=== PATIENT | female | born 1940 | race Caucasian/White ===

== ENCOUNTER 2016-10-30 08:00 | Emergency (ER) | payer MEDICARE ==
[~2016-10-30] VITALS: Ht 160 cm; Wt 54.4 kg
[~2016-10-30 08:00] MED LIST: AMLO5TAB2 PO; BISA10SU55 RC; DOCU-27 PO; ESOM40CA PO; GABA-586 PO; GABA600T2 PO; HYDR-2666 PO; HYDR25TA9 PO; LISI-334 PO; MAGN400O4 PO; MELO7.5T5 PO; POLY15DR28 EACHEYE; PRAV80TA2 PO; SUCR1ORA2 PO; ZOLP5TAB PO
[2016-10-30 08:45] LABS: BASO % 0 % (0-3); EOS % 0 % (0-3); HEMATOCRIT 31.9 % (36.0-47.0); HEMOGLOBIN 10.1 g/dL (12.0-15.5); LYMPH # 0.8 x10^3/uL (1.0-4.8); LYMPH % 7 % (24-48); MEAN CORPUSCULAR HEMOGLOBIN 25 pg (25-35); MEAN CORPUSCULAR HGB CONC 32 g/dL (31-37); MEAN CORPUSCULAR VOLUME 79 fL (79-100); MONO # 0.5 x10^3/uL (0.0-1.1); MONO % 4 % (0-9); NEUT # 9.7 x10^3uL (1.8-7.7); NEUT % 88 % (31-73); PLATELET COUNT 528 x10^3/uL (140-400); RED BLOOD COUNT 4.03 x10^6/uL (3.50-5.40); RED CELL DISTRIBUTION WIDTH 14.2 % (11.5-14.5)
[2016-10-30] MEDS ORDERED: IV NORMAL SALINE 1,000ML 1,000 ML IV ONE (08:45)
[2016-10-30] MEDS ORDERED: ONDANSETRON PF 4 MG/2 ML VIAL. IV ONE (08:45)
[2016-10-30 08:57] LABS: CREATININE 0.7 mg/dL (0.6-1.0); GFR 81.4; POTASSIUM 4.4 mmol/L (3.5-5.1)
--- NOTE | 2016-10-30 09:10 | RAD ---
Portable AP view CXR: Clinical indications: Chest pain with weakness for 2 days. Comparison: September 13, 2015. Findings: No acute lung infiltrate or pleural effusion or pulmonary edema or lung mass or pneumothorax is seen. The heart size, pulmonary vasculature, mediastinum and both kameron are unremarkable. Impression: No acute radiographic abnormality is seen.
--- NOTE | 2016-10-30 09:28 | ED.ADGEN ---
Past History Past Medical History: Constipation, CVA, Gallstones, GERD, High Cholesterol, Hypertension, Other Past Surgical History: Appendectomy, Cholecystectomy, Hysterectomy, Knee Replacement, Tonsillectomy Smoking: Non-smoker Alcohol Use: Occasionally Drug Use: None Adult General HPI HPI Patient is a 75-year-old female presents emergency department complaining of nausea and vomiting for the last 1 week. She states she has been unable to keep anything down. Consequently she reports that she feels "unwell" but denies any janet pain. Denies any diarrhea. Review of Systems Review of Systems Constitutional: Denies fever or chills [] Eyes: Denies change in visual acuity, redness, or eye pain [] HENT: Denies nasal congestion or sore throat [] Respiratory: Denies cough or shortness of breath [] Cardiovascular: No additional information not addressed in HPI [] GI: Denies abdominal pain, nausea, vomiting, bloody stools or diarrhea [] : Denies dysuria or hematuria [] Musculoskeletal: Denies back pain or joint pain [] Integument: Denies rash or skin lesions [] Neurologic: Denies headache, focal weakness or sensory changes [] Endocrine: Denies polyuria or polydipsia [] Current Medications Current Medications Current Medications Medications (Trade) Dose Ordered Sig/Haven Start Time Stop Time Status Last Admin Dose Admin Acetaminophen (Tylenol) 325 mg STK-MED ONCE 10/30/16 11:38 10/30/16 11:39 DC Multi-Ingredient Mouthwash/Gargle (Gi Cocktail) 20 ml 1X ONCE 10/30/16 09:45 10/30/16 09:45 DC Ondansetron HCl (Zofran) 4 mg 1X ONCE 10/30/16 08:45 10/30/16 08:46 DC 10/30/16 09:30 4 MG Sodium Chloride (Iv Sodium Chloride 0.9% 1,000ml) 1,000 ml @ 1,000 mls/hr 1X ONCE 10/30/16 08:45 10/30/16 09:44 DC 10/30/16 08:45 1,000 MLS/HR Allergies Allergies Allergies Coded Allergies Type Severity Reaction Last Updated Verified codeine Allergy Intermediate 09/14/15 Yes gluten Allergy Intermediate 09/14/15 No Physical Exam Physical Exam Constitutional: Well developed, well nourished, no acute distress, non-toxic appearance. [] HENT: Normocephalic, atraumatic, bilateral external ears normal, oropharynx moist, no oral exudates, nose normal. [] Eyes: PERRLA, EOMI, conjunctiva normal, no discharge. [] Neck: Normal range of motion, no tenderness, supple, no stridor. [] Cardiovascular:Heart rate regular rhythm, no murmur [] Lungs & Thorax: Bilateral breath sounds clear to auscultation [] Abdomen: Bowel sounds normal, soft, no tenderness, no masses, no pulsatile masses. [] Skin: Warm, dry, no erythema, no rash. [] Back: No tenderness, no CVA tenderness. [] Extremities: No tenderness, no cyanosis, no clubbing, ROM intact, no edema. [] Neurologic: Alert and oriented X 3, normal motor function, normal sensory function, no focal deficits noted. [] Psychologic: Affect normal, judgement normal, mood normal. [] Current Patient Data Vital Signs Vital Signs Date Time Temp Pulse Resp B/P Pulse Ox O2 Delivery O2 Flow Rate FiO2 10/30/16 10:15 80 20 132/72 96 Room Air 10/30/16 08:00 98.7 Lab Results Laboratory Tests Test 10/30/16 08:30 10/30/16 10:00 White Blood Count 11.0x10^3/uL (4.0-11.0) Red Blood Count 4.03x10^6/uL (3.50-5.40) Hemoglobin 10.1g/dL (12.0-15.5) L Hematocrit 31.9% (36.0-47.0) L Mean Corpuscular Volume 79fL (79-100) Mean Corpuscular Hemoglobin 25pg (25-35) Mean Corpuscular Hemoglobin Concent 32g/dL (31-37) Red Cell Distribution Width 14.2% (11.5-14.5) Platelet Count 528x10^3/uL (140-400) H Neutrophils (%) (Auto) 88% (31-73) H Lymphocytes (%) (Auto) 7% (24-48) L Monocytes (%) (Auto) 4% (0-9) Eosinophils (%) (Auto) 0% (0-3) Basophils (%) (Auto) 0% (0-3) Neutrophils # (Auto) 9.7x10^3uL (1.8-7.7) H Lymphocytes # (Auto) 0.8x10^3/uL (1.0-4.8) L Monocytes # (Auto) 0.5x10^3/uL (0.0-1.1) Eosinophils # (Auto) 0.0x10^3/uL (0.0-0.7) Basophils # (Auto) 0.0x10^3/uL (0.0-0.2) Sodium Level 137mmol/L (136-145) Potassium Level 4.4mmol/L (3.5-5.1) Chloride Level 105mmol/L (98-107) Carbon Dioxide Level 24mmol/L (21-32) Anion Gap 8 (6-14) Blood Urea Nitrogen 21mg/dL (7-20) H Creatinine 0.7mg/dL (0.6-1.0) Estimated GFR (Cockcroft-Gault) 81.4 Glucose Level 82mg/dL (70-99) Calcium Level 9.0mg/dL (8.5-10.1) Aspartate Amino Transferase (AST) 32U/L (15-37) Alanine Aminotransferase (ALT) 43U/L (14-59) Alkaline Phosphatase 393U/L (46-116) H Troponin I Quantitative < 0.017ng/mL (0-0.055) Lipase 36U/L (73-393) L Urine Collection Type U cath Urine Color Yellow Urine Clarity Clear Urine pH 5.0 Urine Specific [place] 1.020 Urine Protein Neg (NEG-TRACE) Urine Glucose (UA) Negmg/dL (NEG) Urine Ketones (Stick) 40mg/dL (NEG) Urine Blood Neg (NEG) Urine Nitrite Neg (NEG) Urine Bilirubin Neg (NEG) Urine Urobilinogen Dipstick 0.2mg/dL (0.2 mg/dL) Urine Leukocyte Esterase Neg (NEG) Urine RBC 0/HPF (0-2) Urine WBC Occ/HPF (0-4) Urine Squamous Epithelial Cells None/LPF Urine Bacteria 0/HPF (0-FEW) Urine Hyaline Casts Occ/HPF Urine Mucus Slight/LPF EKG EKG EKG interpreted by me normal sinus rhythm, 70 bpm, left axis deviation, no ST segment elevation. [] Radiology/Procedures Radiology/Procedures Portable AP view CXR: Clinical indications: Chest pain with weakness for 2 days. Comparison: September 13, 2015. Findings: No acute lung infiltrate or pleural effusion or pulmonary edema or lung mass or pneumothorax is seen. The heart size, pulmonary vasculature, mediastinum and both kameron are unremarkable. Impression: No acute radiographic abnormality is seen. DICTATED AND SIGNED BY: ADIEL RIVAS MD DATE: 10/30/16 0907 CC: KENYA EDWARDS MD; ESTEFANI SUAREZ MD ~[] Course & Med Decision Making Course & Med Decision Making Pertinent Labs and Imaging studies reviewed. (See chart for details) 1030 - Patient's work up is reassuring. She is feeling significantly improved. Patient and family would like her to be discharged home. We will attempt po challenge first. 1115 - Patient has done well with her PO challenge. Requesting discharge. Will d /c with rx for zofran, follow up, and supportive care instructions. [] Final Impression Final Impression nausea and vomiting[] Problems: Dragon Disclaimer Dragon Disclaimer This electronic medical record was generated, in whole or in part, using a voice recognition dictation system. KENYA EDWARDS MD Oct 30, 2016 09:27
[2016-10-30] MEDS ORDERED: LIDO:MAALOX 1:1 20 ML SINGLE DOSE PO ONE (09:45)
[2016-10-30 10:15] VITALS: BP 132/72
[2016-10-30 10:19] LABS: BILIRUBIN,URINE NEG (NEG); CLARITY,URINE CLEAR; COLOR,URINE YELLOW; GLUCOSE,URINE NEG (NEG)
[2016-10-30 10:20] LABS: BACTERIA,URINE 0 /HPF (0-FEW); HYALINE CASTS, URINE OCC /HPF; NITRITE,URINE NEG (NEG); RBC,URINE 0 /HPF (0-2); UROBILINOGEN,URINE 0.2 mg/dL (0.2 mg/dL); WBC,URINE OCC /HPF (0-4)
[2016-10-30] MEDS ORDERED: ONDA4TAB10 PO (11:19)
[2016-10-30] MEDS ORDERED: ACETAMINOPHEN 325 MG TABLET PO ONE ×2 (11:38→11:45)
--- NOTE | 2016-10-30 18:32 | EKG ---
[address] [address] Test Date: 2016-10-30 Test Time: 08:20:38 Pat Name: ABDULLAHI WELLER Department: Room: Gender: F [employer]: PADMA : 1940 Requested By: KENYA EDWARDS Order Number: [id number] Reading MD: Measurements Intervals [place] Rate: 78 P: 59 WI: 194 QRS: -42 QRSD: 120 T: 36 QT: 408 QTc: 469 Interpretive Statements SINUS RHYTHM ABNORMAL LEFT AXIS DEVIATION R-S TRANSITION ZONE IN V LEADS DISPLACED TO THE RIGHT LEFT ANTERIOR FASCICULAR BLOCK ABNORMAL ECG RI6.01 Unconfirmed report No previous ECG available for comparison
--- NOTE | 2016-11-01 11:55 | EKG ---
[address] [address] Test Date: 2016-10-30 Test Time: 08:19:07 Pat Name: ABDULLAHI WELLER Department: Room: Gender: F [employer]: PADMA : 1940 Requested By: KENYA EDWARDS Order Number: [id number] Reading MD: Measurements Intervals [place] Rate: 73 P: 52 ME: 194 QRS: -37 QRSD: 78 T: 26 QT: 414 QTc: 460 Interpretive Statements SINUS RHYTHM ABNORMAL LEFT AXIS DEVIATION R-S TRANSITION ZONE IN V LEADS DISPLACED TO THE RIGHT LEFT ANTERIOR FASCICULAR BLOCK ABNORMAL ECG RI6.01 Unconfirmed report No previous ECG available for comparison
== END 2016-10-30 11:35 | disposition home or self-care (01) ==
LOC: ER 08:00
DX: R11.2 Nausea with vomiting, unspecified (principal); K21.9 Gastro-esophageal reflux disease without esophagitis; E78.00 Pure hypercholesterolemia, unspecified; I10 Essential (primary) hypertension; Z86.73 Personal history of transient ischemic attack (TIA), and cerebral infarction without residual deficits; Z88.5 Allergy status to narcotic agent; Z88.8 Allergy status to other drugs, medicaments and biological substances
CPT/HCPCS: 36415; 51701; 71010; 80048; 81001; 83690; 84075; 84450; 84460; 84484; 85027; 93005; 96361; 96374; 99285; J2405; J7030

== ENCOUNTER → 2016-11-03 | Outpatient (CLI) | payer MEDICARE ==
[2016-10-30 10:15] VITALS: BP 132/72
[~2016-11-03] MED LIST changes: +ONDA4TAB10 PO
--- NOTE | 2016-11-03 13:54 | RAD ---
Ultrasound of the abdomen 11/03/2016 Clinical history: Abdominal pain with nausea and vomiting and elevated liver function tests. Technique: Real-time ultrasound examination of the abdomen was performed. Multiple images were obtained. Findings: Comparison is made to CT scanning of the abdomen dated 10/07/2008. The gallbladder is not visualized consistent with a cholecystectomy. The common bile duct is mildly dilated measuring 9 mm in diameter. Mild intrahepatic biliary ductal dilatation is seen. The liver is normal in size measuring 16.1 cm in length. No focal abnormality of the liver is noted. The spleen is normal in size measuring 9.2 cm in length. Increased echogenicity of the pancreas is seen consistent with fatty infiltration of the pancreas. No focal abnormality of the pancreas is seen. Both kidneys are within normal limits in size and echogenicity. Atherosclerotic plaque formation is seen involving the abdominal aorta. The abdominal aorta tapers normally. The inferior vena cava is within normal limits. No free fluid is seen. Impression: 1. Post Cholecystectomy. 2. Mild intra and extrahepatic biliary ductal dilatation.
== END | disposition home or self-care (01) ==
LOC: US 09:49
PROVIDERS: ATTEND Nurse Practitioner Family
DX: R10.9 Unspecified abdominal pain (principal); R79.89 Other specified abnormal findings of blood chemistry
CPT/HCPCS: 76700

== ENCOUNTER 2017-03-08 00:13 | Inpatient (IN) | payer MEDICARE ==
[~2017-03-08] VITALS: Ht 160 cm; Wt 63.6 kg
[~2017-03-08 00:13] MED LIST changes: +DOCU-109 PO; -DOCU-27 PO; -HYDR-2666 PO; +HYDR-2758 PO; -MAGN400O4 PO; +MAGN400O7 PO; -SUCR1ORA2 PO; +SUCR1ORA5 PO
[2017-03-08] MEDS: fentaNYL PF 100 MCG/2 ML VIAL IV PRN ×5 (00:55→12:46)
--- NOTE | 2017-03-08 01:33 | ED.ADGEN ---
Past History Past Medical History: Constipation, CVA, Gallstones, GERD, High Cholesterol, Hip Fracture, Hypertension, Stroke, Other Past Surgical History: Appendectomy, Cholecystectomy, Hysterectomy, Knee Replacement, Tonsillectomy Smoking: Non-smoker Alcohol Use: Occasionally Drug Use: None Adult General [facility] HPI Patient is a [76 woman, history of CVA with residual right-sided deficits including weakness in the foot and upper extremity, memory issues, hypertension , hyperlipidemia, GERD, arthritis, who presents emergency department via EMS with a complaint of right ankle pain. Per patient's report, she ambulates with assistance and with a gait belt at home, she states that she was attempting to step up into her kitchen with assistance, when she may have "rolled" her ankle, and began expressing significant pain in the ankle. She states she could walk no further, was lowered into her chair by her family. She states that this occurred around 5:30 in the evening. She states that she then attempted to get up and ambulated again several hours later and noted continued extreme pain which she describes as sharp and shooting on the "inside", about an 8 out of 10 in the ankle, at that time EMS was contacted. Patient denies any pain prior to this incident, states that she has the same amount of chronic swelling in the lower extremities, she denies any chest pain, shortness breath, fevers, chills, nausea, vomiting, increasing weakness, any numbness, tingling or other changes. Patient's is en route. Review of Systems Review of Systems Constitutional: Denies fever or chills [] Eyes: Denies change in visual acuity, redness, or eye pain [] HENT: Denies nasal congestion or sore throat [] Respiratory: Denies cough or shortness of breath [] Cardiovascular: No additional information not addressed in HPI [] GI: Denies abdominal pain, nausea, vomiting, bloody stools or diarrhea [] : Denies dysuria or hematuria [] Musculoskeletal: Denies back pain, right ankle pain. Integument: Denies rash or skin lesions [] Neurologic: Denies headache, focal weakness or sensory changes [] Endocrine: Denies polyuria or polydipsia [] Current Medications Current Medications Current Medications Medications (Trade) Dose Ordered Sig/Haven Start Time Stop Time Status Last Admin Dose Admin Acetaminophen (Tylenol) 650 mg PRN Q4HRS PRN 03/08/17 02:30 03/09/17 02:29 UNV Docusate Sodium (Colace) 100 mg [id number] 03/08/17 06:00 UNV Fentanyl Citrate (Fentanyl 2ml Vial) 25 mcg PRN Q2HR PRN 03/08/17 02:30 03/09/17 02:29 UNV Allergies Allergies Allergies Coded Allergies Type Severity Reaction Last Updated Verified codeine Allergy Intermediate 09/14/15 Yes gluten Allergy Intermediate 09/14/15 No Physical Exam Physical Exam Constitutional: Well developed, well nourished, no acute distress, non-toxic appearance. [] HENT: Normocephalic, atraumatic, bilateral external ears normal, oropharynx moist, no oral exudates, nose normal. [] Eyes: PERRLA, EOMI, conjunctiva normal, no discharge. [] Neck: Normal range of motion, no tenderness, supple, no stridor. [] Cardiovascular:Heart rate regular rhythm, no murmur , S1, S2, no rubs or gallops. [] Lungs & Thorax: Diminished breath since bases bilaterally, no wheezing, rhonchi , rales. [] Abdomen: Bowel sounds normal, soft, no tenderness, no masses, no pulsatile masses. [] Skin: Warm, dry, no erythema, no rash. [] Back: No tenderness, no CVA tenderness. [] Extremities: Patient with foot drop noted in the right lower extremity, with some muscle wasting and 2+ pitting edema, negative Homans sign, tenderness to palpation and some swelling noted across both malleoli, although patient has most pain with dorsiflexion of foot, which causes her to cry out. No cyanosis, no clubbing. No external injuries, no other concerning findings identified, patient also noted to have contracture of the right upper arm which is chronic, has full range of motion 5 out of 5 strength in the left upper and lower extremity. Neurologic: Alert and oriented X 3, normal motor function, normal sensory function, no focal deficits noted. [] Psychologic: Affect normal, judgement normal, mood normal. [] Current Patient Data Vital Signs Vital Signs Date Time Temp Pulse Resp B/P (MAP) Pulse Ox O2 Delivery O2 Flow Rate FiO2 03/08/17 00:13 63 24 97 Room Air Lab Results Laboratory Tests Test 03/08/17 01:31 White Blood Count 7.2 x10^3/uL (4.0-11.0) Red Blood Count 3.75 x10^6/uL (3.50-5.40) Hemoglobin 9.5 g/dL (12.0-15.5) L Hematocrit 30.6 % (36.0-47.0) L Mean Corpuscular Volume 82 fL (79-100) Mean Corpuscular Hemoglobin 25 pg (25-35) Mean Corpuscular Hemoglobin Concent 31 g/dL (31-37) Red Cell Distribution Width 15.5 % (11.5-14.5) H Platelet Count 165 x10^3/uL (140-400) Neutrophils (%) (Auto) 72 % (31-73) Lymphocytes (%) (Auto) 17 % (24-48) L Monocytes (%) (Auto) 9 % (0-9) Eosinophils (%) (Auto) 2 % (0-3) Basophils (%) (Auto) 1 % (0-3) Neutrophils # (Auto) 5.1 x10^3uL (1.8-7.7) Lymphocytes # (Auto) 1.2 x10^3/uL (1.0-4.8) Monocytes # (Auto) 0.6 x10^3/uL (0.0-1.1) Eosinophils # (Auto) 0.1 x10^3/uL (0.0-0.7) Basophils # (Auto) 0.0 x10^3/uL (0.0-0.2) Sodium Level 143 mmol/L (136-145) Potassium Level 4.8 mmol/L (3.5-5.1) Chloride Level 109 mmol/L (98-107) H Carbon Dioxide Level 26 mmol/L (21-32) Anion Gap 8 (6-14) Blood Urea Nitrogen 19 mg/dL (7-20) Creatinine 0.9 mg/dL (0.6-1.0) Estimated GFR (Cockcroft-Gault) 60.7 BUN/Creatinine Ratio 21 (6-20) H Glucose Level 106 mg/dL (70-99) H Calcium Level 8.4 mg/dL (8.5-10.1) L Total Bilirubin 0.2 mg/dL (0.2-1.0) Aspartate Amino Transferase (AST) 27 U/L (15-37) Alanine Aminotransferase (ALT) 49 U/L (14-59) Alkaline Phosphatase 235 U/L (46-116) H Total Protein 6.3 g/dL (6.4-8.2) L Albumin 3.2 g/dL (3.4-5.0) L Albumin/Globulin Ratio 1.0 (1.0-1.7) EKG EKG ECG: Rhythm strip: Sinus rhythm, heart rate 67 bpm, no ectopy. As interpreted by me. [] Radiology/Procedures Radiology/Procedures [][address] [address] IMAGING REPORT Signed PATIENT: ABDULLAHI WELLER ACCOUNT: [id number] : 1940 LOCATION: ER AGE: 76 SEX: F EXAM STATUS: REG ER ORD. PHYSICIAN: ALEKSANDRA LÓPEZ DO REASON: pain/ possible injury PROCEDURE: ANKLE RIGHT 3V Examination: 3 views of the right ankle HISTORY: History of right ankle pain COMPARISON: None available Findings: The ankle mortise appears intact. Osseous demineralization limits evaluation. There is moderate soft tissue swelling identified surrounding the ankle joint particularly laterally. Small enthesophyte identified at the site of attachment of the Achilles tendon to the calcaneus. IMPRESSION: 1. No obvious acute osseous findings. 2. Moderate soft tissue swelling identified surrounding the ankle joint particularly laterally. Differential includes edema, infection or cellulitis. Electronically signed by: Brody Roberts MD (03/08/2017 1:45 AM) [facility] [id number] DICTATED AND SIGNED BY: BRODY ROBERTS MD DATE: 03/08/17 0142 CC: ALEKSANDRA LÓPEZ DO; ESTEFANI SUAREZ MD ~ Course & Med Decision Making Course & Med Decision Making Pertinent Labs and Imaging studies reviewed. (See chart for details) [] Final Impression Final Impression Patient's now present in the ED, confirms report by patient, that she had difficulty in relating over the step in the kitchen, and did appear to twist her ankle, and then was grabbed by son lowered into a chair. Patient did not actually fall to the ground. X-ray obtained, patient RECEIVED IV analgesia, with improvement of symptoms. X-ray reveals evidence of dinner lateralization, which does somewhat limited view, but no obvious evidence of fracture, soft tissue swelling noted consistent with patient's known edema which is unchanged per patient and family report. Patient does ambulate at home with assistance, patient's is wheelchair-bound, I do have significant concerns based on her continued degree of pain, unable to her dysfunction. Laboratory studies obtained, noted to have a hemoglobin 9.5, previously was 10.1. No acute concerning findings were identified laboratory studies. I did discuss concerns for him as were her dysfunction, patient states that she is also extremely worried as she would not be able to walk safely at home or get around safely at home. She does again he continued to have significant discomfort. She is agreeable for admission to the hospital for continued evaluation and treatment of intractable pain, she has not received multiple doses of parenteral analgesia with continued discomfort with motion. I did discuss findings as above with Dr. Girard, patient was accepted to his service as an observation admission to the medical surgical floor, she is remain stable during her ED course, with plan for analgesia, and evaluation by PT OT, patient with Antonio wrap applied in the ED. Bridge orders entered per discussion. Patient remained stable and more comfortable in the ED, transferred to the main hospital via EMS. ] Problems: Dragon Disclaimer Dragon Disclaimer This electronic medical record was generated, in whole or in part, using a voice recognition dictation system. Departure: Impression: Primary Impression: Ankle injury Disposition: XFER SHT-TRM HOSP Condition: IMPROVED ALEKSANDRA LÓPEZ DO Mar 08, 2017 01:33
--- NOTE | 2017-03-08 01:49 | RAD ---
Examination: 3 views of the right ankle HISTORY: History of right ankle pain COMPARISON: None available Findings: The ankle mortise appears intact. Osseous demineralization limits evaluation. There is moderate soft tissue swelling identified surrounding the ankle joint particularly laterally. Small enthesophyte identified at the site of attachment of the Achilles tendon to the calcaneus. IMPRESSION: 1. No obvious acute osseous findings. 2. Moderate soft tissue swelling identified surrounding the ankle joint particularly laterally. Differential includes edema, infection or cellulitis. Electronically signed by: Brody Roberts MD (03/08/2017 1:45 AM) [facility]
[2017-03-08 01:52] LABS: BASO % 1 % (0-3); EOS # 0.1 x10^3/uL (0.0-0.7); EOS % 2 % (0-3); HEMATOCRIT 30.6 % (36.0-47.0); HEMOGLOBIN 9.5 g/dL (12.0-15.5); LYMPH # 1.2 x10^3/uL (1.0-4.8); LYMPH % 17 % (24-48); MEAN CORPUSCULAR HEMOGLOBIN 25 pg (25-35); MEAN CORPUSCULAR HGB CONC 31 g/dL (31-37); MEAN CORPUSCULAR VOLUME 82 fL (79-100); MONO # 0.6 x10^3/uL (0.0-1.1); MONO % 9 % (0-9); NEUT # 5.1 x10^3uL (1.8-7.7); NEUT % 72 % (31-73); PLATELET COUNT 165 x10^3/uL (140-400); RED BLOOD COUNT 3.75 x10^6/uL (3.50-5.40); RED CELL DISTRIBUTION WIDTH 15.5 % (11.5-14.5); WHITE BLOOD COUNT 7.2 x10^3/uL (4.0-11.0)
[2017-03-08 02:01] LABS: ALBUMIN 3.2 g/dL (3.4-5.0); CALCIUM 8.4 mg/dL (8.5-10.1); CREATININE 0.9 mg/dL (0.6-1.0); GFR 60.7; TOTAL BILIRUBIN 0.2 mg/dL (0.2-1.0); TOTAL PROTEIN 6.3 g/dL (6.4-8.2)
[2017-03-08 02:02] LABS: POTASSIUM 4.8 mmol/L (3.5-5.1)
[2017-03-08] MEDS ORDERED: ACETAMINOPHEN 325 MG TABLET PO PRN (02:30)
[2017-03-08 03:07] VITALS: BP 121/64
[2017-03-08] MEDS ORDERED: CITA20TA5 PO (03:30)
[2017-03-08] MEDS ORDERED: OXYC1TAB8 PO (03:30)
[2017-03-08] MEDS ORDERED: POTA10TA10 PO (03:30)
[2017-03-08] MEDS ORDERED: SUCR1TAB PO (03:30)
[2017-03-08] MEDS ORDERED: LISI40TA PO (03:30)
[2017-03-08 03:36] LABS: BACTERIA,URINE 0 /HPF (0-FEW); BILIRUBIN,URINE NEG (NEG); CLARITY,URINE CLEAR; COLOR,URINE YELLOW; GLUCOSE,URINE NEG (NEG); NITRITE,URINE NEG (NEG); RBC,URINE OCC /HPF (0-2); SQUAMOUS EPITHELIAL CELL,UR FEW /LPF; UROBILINOGEN,URINE 0.2 mg/dL (0.2 mg/dL); WBC,URINE OCC /HPF (0-4)
[2017-03-08] MEDS: DOCUSATE SODIUM 100 MG CAPSULE PO SCH ×2 (06:00→17:12)
[2017-03-08 06:14] VITALS: BP 127/81
[2017-03-08 10:30] VITALS: BP 105/66
--- NOTE | 2017-03-08 14:01 | RAD ---
Exam: Right foot radiograph 03/08/2017 at 1129 hours Indication: Pain and swelling after walking Comparison: Right toes 02/08/2014 Technique: 2 views of the right foot are provided. Findings: There is no acute fracture or dislocation. Mild degenerative changes are identified at the first metatarsophalangeal joint. No soft tissue swelling. No osseous erosion or soft tissue gas. Osseous structures appear demineralized. Impression: No acute fracture or dislocation.
[2017-03-08 14:25] VITALS: BP 132/77
[2017-03-08] MEDS: GABAPENTIN 300 MG CAPSULE. PO SCH ×2 (14:59→19:57)
[2017-03-08] MEDS: LISINOPRIL 20 MG TABLET PO SCH (15:00)
[2017-03-08] MEDS: CITALOPRAM 20 MG TABLET. PO SCH (15:00)
[2017-03-08] MEDS: amLODIPine BESYLATE 5 MG TABLET PO SCH (15:00)
[2017-03-08] MEDS: oxyCODONE/APAP 7.5/325 1 TAB TABLET PO SCH ×2 (16:30→21:55)
[2017-03-08] MEDS: SUCRALFATE 1 GM TABLET. PO SCH (16:30)
[2017-03-08 18:43] VITALS: BP 106/60
--- NOTE | 2017-03-08 20:37 | HP ---
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 She was brought to the Emergency Room via the emergency medical services with a complaint of right ankle pain. According to her, she ambulates with assistance and a gait belt at home. She states she was attempting to step up at her kitchen with assistance when she might have rolled her ankle and began experiencing significant pain in the ankle joint. Since then, she could not walk further, was lowered into her chair by her family. Apparently, this happened around 5:30 in the evening yesterday. She stated since that she then attempted to get up and ambulated again, several hours later noted continued extreme pain, which she describes as sharp, shooting from the inside, about an 8/10 in the ankle. At that time, the emergency medical services were contacted. The patient denies any pain prior to this incident. She stated that she has some amount of chronic swelling of her lower extremities. Denied any chest pain, shortness of breath or any other complaint. She was evaluated in the Emergency Room. She has had an x-ray of her ankle joint, which showed no obvious acute osseous finding. There is moderate soft tissue swelling identified surrounding the ankle joint, particularly literally. She has had x-ray of the right foot, which showed there is no acute fracture or dislocation, mild degenerative changes identified at the first metatarsophalangeal joint. The x-ray showed that there is no soft tissue swelling; however, clinically, she has marked swelling on the ankle and the dorsum of the right foot, marked tenderness especially over the second metatarsophalangeal bone. The patient was admitted for pain management and to elucidate her source of pain further and also to get physical and occupational therapy. PAST MEDICAL HISTORY: Significant for left middle cerebral artery territory infarct with right-sided hemiplegia, hypertension, degenerative joint disease, depression, generalized osteoarthritis. She has also history of dysphagia, status post PEG tube placement, hyperlipidemia, chronic obstructive pulmonary disease. PAST SURGICAL HISTORY: Significant for appendectomy, cholecystectomy, tonsillectomy, total abdominal hysterectomy and bilateral salpingo-oophorectomy. She has also percutaneous endoscopic gastrostomy tube placement and right total knee arthroplasty. ALLERGIES: She is allergic to CODEINE AND GLUTEN as she is known to have celiac disease. MEDICATIONS: She is currently on following medications: She is on amlodipine 5 mg once a day, citalopram hydrobromide 20 mg once a day, gabapentin 600 mg 3 times a day, lisinopril 40 mg once a day, oxycodone/APAP 7.5/325 four times a day, potassium chloride 20 mEq twice a day and sucralfate 1 gram 3 times a day. FAMILY HISTORY: Noncontributory. SOCIAL HISTORY: She lives with her . She never smoked, does not drink alcohol. She is retired after working in the [employer] as well as [employer]. She has 2 sons and 2 daughters. REVIEW OF SYSTEMS: As per history of present illness. PHYSICAL EXAMINATION GENERAL: When I examined her, she looked pale, but not jaundiced, cyanosis, lymphadenopathy, or thyromegaly. No jugular venous distension. No limb edema. VITAL SIGNS: Her heart rate was 69, blood pressure was 107/71, temperature was 97.9, respiratory rate 20, and oxygen saturation was 94% on room air. HEENT: Showed normocephalic, atraumatic. NECK: Supple. HEART: Showed normal first and second heart sounds with no gallop, rub or murmur. CHEST: Clear to auscultation. No crepitation or rhonchi. ABDOMEN: Distended, soft, nontender. No guarding or rigidity. No organomegaly. Hernial orifices intact. Bowel sounds normal. NEUROLOGIC: She is awake, alert, somewhat hard of hearing and confused; however, all her cranial nerves seem to be grossly intact. She definitely has a right-sided hemiparesis with fixed flexion contracture of the right upper extremity with markedly limited right upper extremity abduction and possible right-sided frozen shoulder versus severe rotator cuff tear. LABORATORY DATA: In the Emergency Room, her lab work showed a white cell count of 7200, hemoglobin 9.5, hematocrit 31, MCV 82, and platelet count of 165,000. Her chemistry showed a serum sodium of 143, potassium 4.8, chloride 109, bicarbonate 26, anion gap of 8, BUN 19, creatinine 0.9, estimated GFR was 61 mL per minute. Her glucose 106, calcium was 8.4. Total bilirubin, AST, ALT were normal. Alkaline phosphatase was high at 235, total protein was 6.3, albumin 3.2. The x-ray of her right ankle joint showed no obvious acute osseous findings, but moderate soft tissue swelling identified surrounding the ankle joint, particularly laterally. X-ray of the right foot showed no evidence of any acute fracture or dislocation. ASSESSMENT AND PLAN: The patient continued to have marked swelling of her right ankle and dorsal aspect of the right foot. The patient will be admitted. We will continue with all her medication. We will arrange for her to have a bone scan of her right foot and we will decide on further management accordingly. OWEN MAGANA MD DR: CALLI/esequiel JOB#: [id number] / [id number]
[2017-03-08 22:01] VITALS: BP 125/68
--- NOTE | 2017-03-09 00:30 | ACF ---
Admission Criteria Forms PAIN MANAGEMENT GR Clinical Indications for Admission to Inpatient Care (Place 'X' for any and all applicable criteria): Hospital admission is needed for appropriate care of the patient because of 1 or more of the following are present (1)(2)(3)(4)(5): [ ]I. Severe pain requiring acute inpatient management as indicated by 1 or more of the following (2)(5)(10): [ ]a) Continuous or frequent (eg, every 2 to 4 hours) parenteral analgesics required [A] [ ]b) Necessity (ie, alternative approaches not effective) for analgesic regimen that can only be performed or initiated in inpatient setting [X]II. Pain causing debilitation to the point of inability to function or be supported at any other level of care [ ]III. Severe side effects from pain medications as indicated by ANY ONE of the following (12)(13)(14)(15): [ ]a) Uncontrollable seizures [ ]b) Cardiac arrhythmias of immediate concern [ ]c) Dehydration that is severe or persistent [ ]d) Vomiting that is severe or persistent [ ]e) Altered mental status that is severe or persistent [ ]f) Obstipation with inadequate GI function to maintain nutrition The original [employer] content created by [employer] has been revised. The portions of the content which have been revised are identified through the use of italic text or in bold, and [facility] has neither reviewed nor approved the modified material. All other unmodified content is copyright [employer]. Please see references footnoted in the original [employer] edition 2016 Admission Criteria Met?: Yes EVER ATKINSON Mar 09, 2017 00:30
[2017-03-09] MEDS: fentaNYL PF 100 MCG/2 ML VIAL IV PRN ×2 (01:37→09:16)
[2017-03-09] MEDS: oxyCODONE/APAP 7.5/325 1 TAB TABLET PO SCH ×4 (04:12→20:50)
[2017-03-09] MEDS: DOCUSATE SODIUM 100 MG CAPSULE PO SCH ×2 (04:12→07:47)
[2017-03-09 05:02] VITALS: BP 156/79
[2017-03-09] MEDS: LISINOPRIL 20 MG TABLET PO SCH (07:46)
[2017-03-09] MEDS: SUCRALFATE 1 GM TABLET. PO SCH ×3 (07:46→14:52)
[2017-03-09] MEDS: CITALOPRAM 20 MG TABLET. PO SCH (07:46)
[2017-03-09] MEDS: GABAPENTIN 300 MG CAPSULE. PO SCH ×3 (07:46→20:50)
[2017-03-09] MEDS: amLODIPine BESYLATE 5 MG TABLET PO SCH (07:47)
--- NOTE | 2017-03-09 14:43 | RAD ---
Limited bone scan, 03/09/2017: History: Injury, pain Imaging of both feet and ankles was performed following IV injection of 25 mCi of technetium 99m MDP. The following findings are delineated: 1. There is markedly increased activity in the region of the right first MTP joint. This could be on an arthritic or post traumatic basis. The recent foot radiographs did demonstrate moderate arthritic change at this level. 2. There is mildly increased activity at the right second MTP joint level. This may be arthritic or posttraumatic. 3. There is moderately increased activity at the right first and second tarsal-metatarsal joint levels. The radiographs do not demonstrate significant arthritis at this level. Occult fractures are possible. Radiographic follow-up in 7-10 days may be useful for further evaluation. 4. There is only slightly increased activity at both ankle joints, likely arthritic in nature.
[2017-03-09] MEDS: POTASSIUM CHLORIDE 10 MEQ TABLET.ER. PO SCH (15:38)
[2017-03-09] MEDS: ENOXAPARIN 40 MG/0.4 ML DISP.SYRIN. SQ SCH (15:39)
[2017-03-09 18:42] VITALS: BP 116/69
[2017-03-10] MEDS: fentaNYL PF 100 MCG/2 ML VIAL IV PRN ×3 (01:01→12:15)
--- NOTE | 2017-03-10 02:50 | PN ---
DATE: 03/09/2017 SUBJECTIVE: The patient is resting, slightly propped up in bed, in no apparent distress. She continued to complain of pain and is unable to put weight on her right foot. She did have a bone scan done of her right foot, which showed that there is moderately increased activity at the right first and second tarsometatarsal joint level. The radiographs demonstrate significant arthritis at this level and occult fracture. Possible radiograph follow up in 7-10 days will be useful for further evaluation. There is only slightly increased activity at both ankle joints likely arthritic in nature. PHYSICAL EXAMINATION: GENERAL: When I examined her, she was resting, slightly propped up in bed, in no apparent distress. Slightly pale, but no jaundice, cyanosis, or thyromegaly. No jugular venous distension. No limb edema. VITAL SIGNS: Her heart rate was 62, blood pressure was 156/79, temperature was 98.1, respiratory rate 20, and oxygen saturation was 94%. HEAD, EYES, EARS, NOSE, AND THROAT: Showed normocephalic and atraumatic. NECK: Supple. HEART: Showed normal first and second heart sounds with no gallop, rub, or murmur. CHEST: Clear to auscultation. No crepitation or rhonchi. ABDOMEN: Scaphoid, soft, and nontender. NEUROLOGIC: She is awake, alert, and hard of hearing. She has residual right-sided weakness. Her right foot and right ankle joint continued to be swollen. Her intake was 660 and output was 350. LABORATORY DATA: No lab work done this morning. ASSESSMENT AND PLAN: 1. Pain and marked swelling dorsal aspect of the right foot and right ankle after she twisted her foot yesterday where the x-rays did not demonstrate any fracture; however, bone scan showed that there might be an occult fracture. 2. She has other medical problems including left middle cerebral artery territory infarct with right-sided hemiplegia. 3. Hypertension. 4. Degenerative joint disease. 5. Depression. 6. Hyperlipidemia. 7. Chronic obstructive pulmonary disease. We left a message with the orthopedic surgeons at [facility] for advice regarding further management. OWEN MAGANA MD DR: CALLI/esequiel JOB#: [id number] / [id number]
[2017-03-10] MEDS: oxyCODONE/APAP 7.5/325 1 TAB TABLET PO SCH ×4 (04:05→17:18)
[2017-03-10] MEDS: DOCUSATE SODIUM 100 MG CAPSULE PO SCH ×2 (04:52→17:19)
[2017-03-10 05:13] VITALS: BP 147/77
[2017-03-10 06:31] LABS: ALBUMIN 2.8 g/dL (3.4-5.0); ALBUMIN/GLOBULIN RATIO 0.8 (1.0-1.7); CALCIUM 8.5 mg/dL (8.5-10.1); CREATININE 0.7 mg/dL (0.6-1.0); GFR 81.1; POTASSIUM 4.2 mmol/L (3.5-5.1); TOTAL BILIRUBIN 0.2 mg/dL (0.2-1.0); TOTAL PROTEIN 6.1 g/dL (6.4-8.2)
[2017-03-10 06:52] LABS: HEMATOCRIT 30.1 % (36.0-47.0); HEMOGLOBIN 9.5 g/dL (12.0-15.5); RED BLOOD COUNT 3.75 x10^6/uL (3.50-5.40); RED CELL DISTRIBUTION WIDTH 14.9 % (11.5-14.5); WHITE BLOOD COUNT 4.1 x10^3/uL (4.0-11.0)
[2017-03-10] MEDS: SUCRALFATE 1 GM TABLET. PO SCH ×3 (08:21→16:02)
[2017-03-10] MEDS: LISINOPRIL 20 MG TABLET PO SCH (08:21)
[2017-03-10] MEDS: POTASSIUM CHLORIDE 10 MEQ TABLET.ER. PO SCH ×2 (08:22→17:19)
[2017-03-10] MEDS: amLODIPine BESYLATE 5 MG TABLET PO SCH (08:22)
[2017-03-10] MEDS: GABAPENTIN 300 MG CAPSULE. PO SCH ×3 (08:22→21:10)
[2017-03-10] MEDS: CITALOPRAM 20 MG TABLET. PO SCH (08:22)
[2017-03-10 10:55] VITALS: BP 147/76
[2017-03-10] MEDS: ENOXAPARIN 40 MG/0.4 ML DISP.SYRIN. SQ SCH (16:02)
[2017-03-10 18:02] VITALS: BP 144/78
[2017-03-11] MEDS: oxyCODONE/APAP 7.5/325 1 TAB TABLET PO SCH ×2 (01:34→07:50)
--- NOTE | 2017-03-11 02:10 | PN ---
DATE: 03/10/2017 SUBJECTIVE: The patient is sitting comfortably in her chair in no apparent distress. She continued to complain of pain in her right foot and swelling, requires 2-person assist. Decision was made to discharge her to [facility] tomorrow. PHYSICAL EXAMINATION: GENERAL: When I examined her today, she looked well and was clearly in no apparent respiratory distress, pale, no jaundice, cyanosis, or thyromegaly. No jugular venous distention. No lower limb edema. VITAL SIGNS: Her heart rate was 66, blood pressure was 147/77, temperature was 98.1, respiratory rate was 18 and oxygen saturation was 94%. HEAD, EYES, EARS, NOSE AND THROAT: Showed normocephalic, atraumatic. NECK: Supple. HEART: Showed normal first and second heart sounds with no gallop, rub or murmur. CHEST: Clear to auscultation. No crepitation or rhonchi. ABDOMEN: Distended, soft, nontender. No guarding or rigidity. No organomegaly. Hernial orifices intact. Bowel sounds normal. NEUROLOGIC: She is somewhat hard of hearing. She has left basal ganglia infarct with right-sided hemiplegia. She normally ambulates with a walker with standby assist and now she is requiring 2-person assist after the bone scan showed possible fracture of the right second and third metatarsal bone. Her intake was 1300, output was 1350. LABORATORY DATA: Her lab work this morning showed a white cell count 4100, hemoglobin 9.5, hematocrit 30.1, MCV 80 and platelet count of 156,000. Serum sodium 142, potassium 4.2, chloride 109, bicarbonate 30, anion gap of 3, BUN 13, creatinine 0.7, estimated GFR was 81 mL per minute. Her glucose was 82, calcium was 8.5. Total bilirubin, AST, ALT were normal. Alkaline phosphatase is elevated. Total protein was 6.1, albumin was 2.8. Urinalysis is unremarkable. ASSESSMENT: 1. Pain and marked swelling of the dorsal aspect of the right foot and right ankle after she twisted her foot. The x-ray did not demonstrate any fracture; however, bone scan showed there might be an occult fracture. We did speak with ___ who recommended a Cam boot and weightbearing as tolerated. 2. The patient has multiple other medical problems including, a. Middle cerebral artery, territory infarct with right-sided hemiplegia. b. Hypertension. c. Degenerative joint disease. d. Depression. e. Hyperlipidemia. f. Chronic obstructive pulmonary disease. PLAN: Obviously to discharge her tomorrow to [facility] to continue with pain management and physical and occupational therapy. OWEN MAGANA MD DR: CALLI/esequiel JOB#: [id number] / [id number]
[2017-03-11] MEDS: fentaNYL PF 100 MCG/2 ML VIAL IV PRN (05:27)
[2017-03-11 05:28] VITALS: BP 116/70
[2017-03-11] MEDS: SUCRALFATE 1 GM TABLET. PO SCH ×2 (07:48→11:42)
[2017-03-11] MEDS: POTASSIUM CHLORIDE 10 MEQ TABLET.ER. PO SCH (07:48)
[2017-03-11 08:46] VITALS: BP 126/71
[2017-03-11] MEDS: GABAPENTIN 300 MG CAPSULE. PO SCH ×2 (08:48→14:00)
[2017-03-11] MEDS: CITALOPRAM 20 MG TABLET. PO SCH (08:48)
[2017-03-11] MEDS: LISINOPRIL 20 MG TABLET PO SCH (08:49)
[2017-03-11] MEDS: amLODIPine BESYLATE 5 MG TABLET PO SCH (08:49)
[2017-03-11] MEDS ORDERED: DOCUSATE SODIUM 100 MG CAPSULE PO SCH (09:00)
[2017-03-11 12:14] VITALS: BP 110/69
--- NOTE | 2017-03-11 12:34 | DS ---
DATE OF DISCHARGE: 03/11/2017 HOSPITAL COURSE: The patient is a 76-year-old female patient who was admitted to [facility] through the Emergency Room as she apparently was trying to get over a threshold to her kitchen and somehow twisted her right foot, developed severe pain and inability to walk. She was evaluated in the Emergency Room, was found to have marked soft tissue swelling of the dorsal aspect of the right foot as well as right ankle joint; however, x-rays were unremarkable. We did a bone scan, which showed there is moderately increased activity at the right first and second tarsometatarsal joint level. The radiograph did not demonstrate significant arthritis at this level and an occult fracture is the possible. We have consulted Dr. Santamaria who recommended that she should be in a Cam boot that she should be weightbearing as tolerated. Unfortunately, the Hot Worker would not come here and treat her with the Cam boot and therefore, a decision was made to discharge her to [facility] and to arrange for her to be transported to [facility] office at [facility] to fit her with the Cam boot. PHYSICAL EXAMINATION: GENERAL: When I saw her today, she was resting slightly propped up in bed, in no apparent respiratory distress. She was sleeping comfortably, slightly pale, but not jaundiced, cyanosis, or thyromegaly. No jugular venous distension. No limb edema. VITAL SIGNS: Her heart rate was 67, blood pressure 126/71, temperature was 98.4, respiratory rate was 18, and oxygen saturation was 94%. HEAD, EYES, EARS, NOSE AND THROAT: Showed normocephalic, atraumatic. NECK: Supple. HEART: Showed normal first and second heart sounds. No gallop, rub or murmur. CHEST: Clear to auscultation. No crepitation or rhonchi. ABDOMEN: Distended, soft, and nontender. No guarding or rigidity. No organomegaly. Hernial orifices intact. Bowel sounds normal. NEUROLOGIC: She was awake, alert, responding appropriately. She has right-sided hemiplegia. Her intake was 490, output was 700. LABORATORY DATA: Her lab work as of yesterday showed a serum sodium 142, potassium 4.2, chloride 109, bicarbonate 30, anion gap of 3, BUN 13, creatinine 0.7, estimated GFR was 81 mL per minute. Her glucose was 82. Calcium was 8.5. Total bilirubin, AST, ALT, alkaline phosphatase were normal. Her total protein was 6.1, albumin 2.8. White cell count was 4100, hemoglobin 9.5, hematocrit 30, MCV 80, and platelet count of 156,000. DISCHARGE MEDICATIONS: The patient was discharged to [facility] to continue with Colace 100 mg twice a day, potassium chloride 10 mEq twice a day, Lovenox 40 mg subcutaneously once a day, fentanyl 50 mcg that was discontinued, sucralfate 1 g 3 times a day, lisinopril 40 mg once a day, gabapentin 600 mg 3 times a day, citalopram hydrobromide 20 mg daily, amlodipine 5 mg once a day, oxycodone and aspirin 7.5/325 one tablet 4 times a day as needed. FINAL DISCHARGE DIAGNOSES: Pain with marked swelling at the dorsal aspect of the right foot and right ankle after she twisted her foot. X-ray did not demonstrate any fracture; however, bone scan showed that there might be an occult fracture. We did consult with Dr. Santamaria, the orthopedic surgeon who recommended a Cam boot and weightbearing as tolerated. The patient has multiple other medical problems including, A. Left middle cerebral artery territory infarct with right-sided hemiplegia. B. Hypertension. C. Degenerative joint disease. D. Depression. E. Hyperlipidemia. F. Chronic obstructive pulmonary disease. The plan is to discharge her to [facility] to continue with his rehabilitation process. OWEN MAGANA MD DR: CALLI/esequiel JOB#: [id number] / [id number]
== END 2017-03-11 14:40 | DRG 563 ==
LOC: ER 00:13 → 1 SOUTH 02:48 → OBSVTOIN 11:09
PROVIDERS: ADMIT Internal Medicine; ATTEND Internal Medicine
DX: S92.811A Other fracture of right foot, initial encounter for closed fracture (principal); I69.351 Hemiplegia and hemiparesis following cerebral infarction affecting right dominant side; J44.9 Chronic obstructive pulmonary disease, unspecified; I10 Essential (primary) hypertension; F32.9 Major depressive disorder, single episode, unspecified; E78.5 Hyperlipidemia, unspecified; K21.9 Gastro-esophageal reflux disease without esophagitis; E78.00 Pure hypercholesterolemia, unspecified; M15.9 Polyosteoarthritis, unspecified; Z96.651 Presence of right artificial knee joint; Z90.49 Acquired absence of other specified parts of digestive tract; Z90.710 Acquired absence of both cervix and uterus; Z90.89 Acquired absence of other organs; Z88.8 Allergy status to other drugs, medicaments and biological substances; Z79.899 Other long term (current) drug therapy; X50.1XXA Overexertion from prolonged static or awkward postures, initial encounter; Y92.090 Kitchen in other non-institutional residence as the place of occurrence of the external cause; Y93.89 Activity, other specified; Y99.8 Other external cause status
CPT/HCPCS: 36415; 73610; 73620; 78300; 80053; 81001; 85025; 85027; 96374; A9503; G0378; G0379; J1650; J3010; 97110; 97530; 97535; 99285-25

== ENCOUNTER 2017-04-16 05:06 | Emergency (ER) | payer MEDICARE ==
[~2017-04-16] VITALS: Ht 160 cm; Wt 68.0 kg
[~2017-04-16 05:06] MED LIST changes: +CITA20TA5 PO; +LISI40TA PO; +OXYC1TAB8 PO; +POTA10TA10 PO; +SUCR1TAB PO
[2017-04-16 06:00] VITALS: BP 124/56
--- NOTE | 2017-04-16 06:07 | EKG ---
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
--- NOTE | 2017-04-16 06:12 | PHYS DOC ---
Past History Past Medical History: Constipation, CVA, Gallstones, GERD, High Cholesterol, Hip Fracture, Hypertension, Stroke, Other Past Surgical History: Appendectomy, Cholecystectomy, Hysterectomy, Knee Replacement, Tonsillectomy Smoking: Non-smoker Alcohol Use: Occasionally Drug Use: None Adult General HPI HPI Patient is a 76 year old F who presents with inability to get up and ambulate. Patient has history of a CVA with right-sided deficits him a right-sided hemiparesis. Patient's last known well was at 8 PM last night before she went to bed. Patient sleeps in a chair and this morning she was unable to get up to her walker. Patient called EMS. Patient has some dysarthria that is a residual from her previous CVA. Patient has no complaints in the emergency room. I saw this patient upon my arrival to the emergency room however the patient has been in the emergency room for approximately 1 hour and 2 minutes. Review of Systems Review of Systems GEN: Generalized weakness HEENT: Denies blurred vision, sore throat CV: Denies chest pain RESP: Denies shortness of air, cough GI: Denies n/v/d NEURO: Denies confusion, dizziness MSK: Denies weakness, joint pain/swelling Allergies Allergies Allergies Coded Allergies Type Severity Reaction Last Updated Verified codeine Allergy Intermediate 09/14/15 Yes gluten Allergy Intermediate 09/14/15 No Physical Exam Physical Exam GEN.: No apparent distress. Alert and oriented x2, at neuro baseline per her son HEENT: Head is normocephalic, atraumatic NECK: Supple. LUNGS: CTAB. HEART: RRR, S1, S2 present. Peripheral pulses intact ABDOMEN: Soft, nontender. Positive bowel sounds. EXTREMITIES: Without any cyanosis. Right-sided hemiparesis from previous stroke, patient has 4-5 muscle strength to the upper and lower extremity on the left proximal and distal muscles NEUROLOGIC: Dysarthria residual from previous stroke PSYCHIATRIC: Normal affect, normal mood. SKIN: No ulcerations Current Patient Data Vital Signs Laboratory Tests Test 04/16/17 05:34 04/16/17 05:58 White Blood Count 6.8 x10^3/uL Red Blood Count 3.68 x10^6/uL Hemoglobin 9.4 g/dL Hematocrit 29.5 % Mean Corpuscular Volume 80 fL Mean Corpuscular Hemoglobin 26 pg Mean Corpuscular Hemoglobin Concent 32 g/dL Red Cell Distribution Width 14.9 % Platelet Count 164 x10^3/uL Neutrophils (%) (Auto) 67 % Lymphocytes (%) (Auto) 19 % Monocytes (%) (Auto) 12 % Eosinophils (%) (Auto) 2 % Basophils (%) (Auto) 1 % Neutrophils # (Auto) 4.5 x10^3uL Lymphocytes # (Auto) 1.3 x10^3/uL Monocytes # (Auto) 0.8 x10^3/uL Eosinophils # (Auto) 0.1 x10^3/uL Basophils # (Auto) 0.0 x10^3/uL Erythrocyte Sedimentation Rate Pending Prothrombin Time 10.8 SEC Prothromb Time International Ratio 1.1 Activated Partial Thromboplast Time 24 SEC Sodium Level 141 mmol/L Potassium Level 5.6 mmol/L Chloride Level 111 mmol/L Carbon Dioxide Level 23 mmol/L Anion Gap 7 Blood Urea Nitrogen 38 mg/dL Creatinine 1.1 mg/dL Estimated GFR (Cockcroft-Gault) 48.2 BUN/Creatinine Ratio 35 Glucose Level 89 mg/dL Lactic Acid Level 0.9 mmol/L Calcium Level 8.8 mg/dL Total Bilirubin 0.2 mg/dL Aspartate Amino Transf (AST/SGOT) 23 U/L Alanine Aminotransferase (ALT/SGPT) 28 U/L Alkaline Phosphatase 164 U/L Creatine Kinase 264 U/L Troponin I Quantitative < 0.017 ng/mL C-Reactive Protein 4.1 mg/L VQ-Kay-P-Type Natriuretic Peptide 86 pg/mL Total Protein 6.4 g/dL Albumin 3.1 g/dL Albumin/Globulin Ratio 0.9 Urine Collection Type U cath Urine Color Yellow Urine Clarity Clear Urine pH 5.5 Urine Specific [place] 1.010 Urine Protein Neg Urine Glucose (UA) Neg mg/dL Urine Ketones (Stick) Neg mg/dL Urine Blood Neg Urine Nitrite Neg Urine Bilirubin Neg Urine Urobilinogen Dipstick 0.2 mg/dL Urine Leukocyte Esterase Neg Urine RBC 0 /HPF Urine WBC 1-4 /HPF Urine Squamous Epithelial Cells Occ /LPF Urine Bacteria 0 /HPF Urine Hyaline Casts Occ /HPF Urine Mucus Mod /LPF EKG EKG 0607: EKG shows normal sinus rhythm rate of 70 no STEMI[] Radiology/Procedures Radiology/Procedures CT scan of the head: IMPRESSION: 1. No acute intracranial hemorrhage. 2. Scattered regions of low attenuation within the white matter. Non-specific in nature but frequently secondary to chronic small vessel ischemic disease. 3. Prominence of ventricles and sulci which is frequently secondary to age related volume loss. 4. Region of low-attenuation within the left side of the cerebellum which appears new when compared to prior. Could be from causes such as a stroke in the interim. If there is clinical concern for acute causes MRI could better evaluate the acuity of this finding.[] Course & Med Decision Making Course & Med Decision Making Pertinent Labs and Imaging studies reviewed. (See chart for details) ED course: Patient arrived to the emergency room an hour prior to me starting my shift and a stroke order set was put on the patient. Pt had NIH of 14 but had residual right-sided deficits from previous CVA. 0605: I evaluated the patient in the emergency room who is having persistent right-sided deficits and was hard to doing was between old and new 0727: Updated patient and family on CT findings which are concerning for a new stroke on the left however the patient is outside any window for TPA or any intervention therefore the patient will be admitted to the hospital at [facility] for further evaluation and management 0735: Discussed CC/HP/PMH with Dr. Morrell and recommends admit [] MDM: After reviewing the chart, CC/HPI/PMH, physical exam, [lab results], [ radiological results], I think the patient had an acute CVA however is outside any window for intervention or TPA since last known well was 8 PM last night. Patient is stable to be transferred to [facility] for further evaluation and management. Plan has been discussed with patient and family. [] Dragon Disclaimer Dragon Disclaimer This chart was dictated in whole or in part using Voice Recognition software in a busy, high-work load, and often noisy Emergency Department environment. It may contain unintended and wholly unrecognized errors or omissions. Departure Departure: Impression: Primary Impression: CVA (cerebral vascular accident) Disposition: 02 XFER SHT-TRM HOSP (Dr. Morrell) Condition: STABLE Referrals: ESTEFANI SUAREZ MD (PCP) MARSHA SAMANIEGO DO Apr 16, 2017 06:12
--- NOTE | 2017-04-16 06:30 | RAD ---
INDICATION: HX LT SIDE STROKE W/RT SIDE WEAKNESS. MORE WEAKNESS THAN USUAL COMPARISON: September 13, 2015 TECHNIQUE: Axial CT images obtained through the head without intravenous contrast. One or more of the following individualized dose reduction techniques were utilized for this examination: 1. Automated exposure control; 2. Adjustment of the mA and/or kV according to patient size; 3. Use of iterative reconstruction technique. FINDINGS: No intracranial hemorrhage. No midline shift. Basal cisterns patents. Ventricles and sulci are globally prominent. No acute osseous abnormality. Orbits and paranasal sinuses unremarkable. Scattered foci of low attenuation within the white matter. IMPRESSION: 1. No acute intracranial hemorrhage. 2. Scattered regions of low attenuation within the white matter. Non-specific in nature but frequently secondary to chronic small vessel ischemic disease. 3. Prominence of ventricles and sulci which is frequently secondary to age related volume loss. 4. Region of low-attenuation within the left side of the cerebellum which appears new when compared to prior. Could be from causes such as a stroke in the interim. If there is clinical concern for acute causes MRI could better evaluate the acuity of this finding. Electronically signed by: Nikolay Vazquez MD (04/16/2017 6:27 AM) [id number]
[2017-04-16 07:07] LABS: BACTERIA,URINE 0 /HPF (0-FEW); BILIRUBIN,URINE NEG (NEG); CLARITY,URINE CLEAR; COLOR,URINE YELLOW; GLUCOSE,URINE NEG (NEG); HYALINE CASTS, URINE OCC /HPF; NITRITE,URINE NEG (NEG); RBC,URINE 0 /HPF (0-2); SQUAMOUS EPITHELIAL CELL,UR OCC /LPF; UROBILINOGEN,URINE 0.2 mg/dL (0.2 mg/dL)
[2017-04-16 07:08] LABS: BASO % 1 % (0-3); EOS # 0.1 x10^3/uL (0.0-0.7); EOS % 2 % (0-3); HEMATOCRIT 29.5 % (36.0-47.0); HEMOGLOBIN 9.4 g/dL (12.0-15.5); LYMPH # 1.3 x10^3/uL (1.0-4.8); LYMPH % 19 % (24-48); MEAN CORPUSCULAR HEMOGLOBIN 26 pg (25-35); MEAN CORPUSCULAR HGB CONC 32 g/dL (31-37); MEAN CORPUSCULAR VOLUME 80 fL (79-100); MONO # 0.8 x10^3/uL (0.0-1.1); MONO % 12 % (0-9); NEUT # 4.5 x10^3uL (1.8-7.7); NEUT % 67 % (31-73); PLATELET COUNT 164 x10^3/uL (140-400); RED BLOOD COUNT 3.68 x10^6/uL (3.50-5.40); RED CELL DISTRIBUTION WIDTH 14.9 % (11.5-14.5); WHITE BLOOD COUNT 6.8 x10^3/uL (4.0-11.0)
[2017-04-16 07:19] LABS: ALBUMIN 3.1 g/dL (3.4-5.0); ALBUMIN/GLOBULIN RATIO 0.9 (1.0-1.7); C REACTIVE PROTEIN 4.1 mg/L (0-3.3); CALCIUM 8.8 mg/dL (8.5-10.1); CREATININE 1.1 mg/dL (0.6-1.0); GFR 48.2; POTASSIUM 5.6 mmol/L (3.5-5.1); TOTAL BILIRUBIN 0.2 mg/dL (0.2-1.0); TOTAL PROTEIN 6.4 g/dL (6.4-8.2)
[2017-04-16 08:12] LABS: SEDIMENTATION RATE 6 (0-25)
--- NOTE | 2017-04-16 08:15 | RAD ---
AP portable chest radiograph 04/16/2017 Clinical History: Weakness. An AP portable erect digital radiograph of the chest was obtained. Comparison study is dated 10/30/2016. The cardiac silhouette is mildly enlarged. The thoracic aorta is tortuous. Atherosclerotic calcification of the thoracic aorta is seen. No acute pulmonary infiltrate is noted. No pneumothorax or pleural effusion is seen. The osseous structures are unchanged. Impression: No acute abnormality is seen.
== END 2017-04-16 08:45 | disposition short-term general hospital (02) ==
LOC: ER 05:06
DX: I63.9 Cerebral infarction, unspecified (principal); I10 Essential (primary) hypertension; E78.00 Pure hypercholesterolemia, unspecified; K21.9 Gastro-esophageal reflux disease without esophagitis; Z86.73 Personal history of transient ischemic attack (TIA), and cerebral infarction without residual deficits; Z88.5 Allergy status to narcotic agent; Z88.8 Allergy status to other drugs, medicaments and biological substances
CPT/HCPCS: 36415; 51702; 70450; 71010; 80053; 81001; 82550; 83605; 83880; 84484; 85025; 85610; 85651; 85730; 86140; 93005; 99285-25

== ENCOUNTER 2017-05-09 16:38 | Emergency (ER) | payer MEDICARE ==
[~2017-05-09] VITALS: Ht 160 cm; Wt 66.0 kg
[2017-05-09] MEDS ORDERED: IV NORMAL SALINE 1,000ML 1,000 ML IV ONE (17:00)
[2017-05-09 18:06] LABS: BASO % 1 % (0-3); EOS # 0.2 x10^3/uL (0.0-0.7); EOS % 3 % (0-3); HEMATOCRIT 30.4 % (36.0-47.0); HEMOGLOBIN 9.8 g/dL (12.0-15.5); LYMPH # 1.5 x10^3/uL (1.0-4.8); LYMPH % 26 % (24-48); MEAN CORPUSCULAR HEMOGLOBIN 25 pg (25-35); MEAN CORPUSCULAR HGB CONC 32 g/dL (31-37); MEAN CORPUSCULAR VOLUME 79 fL (79-100); MONO # 0.6 x10^3/uL (0.0-1.1); MONO % 10 % (0-9); NEUT # 3.7 x10^3uL (1.8-7.7); NEUT % 61 % (31-73); PLATELET COUNT 232 x10^3/uL (140-400); RED BLOOD COUNT 3.84 x10^6/uL (3.50-5.40); RED CELL DISTRIBUTION WIDTH 14.4 % (11.5-14.5)
[2017-05-09 18:11] LABS: CALCIUM 8.4 mg/dL (8.5-10.1); CREATININE 0.8 mg/dL (0.6-1.0); GFR 69.6; POTASSIUM 4.5 mmol/L (3.5-5.1)
--- NOTE | 2017-05-09 18:53 | PHYS DOC ---
Past History Past Medical History: Arthritis, COPD, GERD, Hypertension, Stroke, TIA Past Surgical History: Other Smoking: Non-smoker Alcohol Use: None Drug Use: None Adult General Chief Complaint Chief Complaint: SHORTNESS OF BREATH HPI HPI Patient is a 76 year old female who presents with complaints of chest pain and shortness of breath. Patient states that she was having symptoms within 2-3 hours prior to arrival earlier today. Patient's currently at [facility] and was brought here under the direction of Dr. Girard to be evaluated for her symptoms. Patient is currently at the rehabilitation center for treatment of a right lower extremity injury and has been in a walking boot for several days. It was reported that Dr. Girard was concerned her symptoms could be related to a possible pulmonary embolism. The patient states that currently her symptoms have improved and she is no longer in any pain and not feeling short of breath currently. Patient denies any history of known heart or lung disease though her chart shows that she has history of COPD. Review of Systems Review of Systems Constitutional: Denies fever or chills [] Eyes: Denies change in visual acuity, redness, or eye pain [] HENT: Denies nasal congestion or sore throat [] Respiratory: Shortness of breath, currently resolved[] Cardiovascular: Chest pain, currently resolved[] GI: Denies abdominal pain, nausea, vomiting, bloody stools or diarrhea [] : Denies dysuria or hematuria [] Musculoskeletal: Right lower extremity injury[] Integument: Denies rash or skin lesions [] Neurologic: Denies headache, focal weakness or sensory changes [] Current Medications Current Medications Current Medications Medications (Trade) Dose Ordered Sig/Haven Start Time Stop Time Status Last Admin Dose Admin Sodium Chloride 1,000 ml @ 1,000 mls/hr 1X ONCE 05/09/17 17:00 05/09/17 17:59 DC 05/09/17 17:00 1,000 MLS/HR Allergies Allergies Allergies Coded Allergies Type Severity Reaction Last Updated Verified codeine Allergy Intermediate 09/14/15 Yes gluten Allergy Intermediate 09/14/15 No Physical Exam Physical Exam Constitutional: Alert, afebrile, appears in no acute distress. [] HENT: Normocephalic, atraumatic, bilateral external ears normal, oropharynx moist, no oral exudates, nose normal. [] Eyes: PERRLA, EOMI, conjunctiva normal, no discharge. [] Neck: Normal range of motion, no tenderness, supple, no stridor. [] Cardiovascular:Heart rate regular rhythm, no murmur [] Lungs & Thorax: Bilateral breath sounds clear to auscultation [] Abdomen: Bowel sounds normal, soft, no tenderness, no masses, no pulsatile masses. [] Skin: Warm, dry, no erythema, no rash. [] Back: No tenderness, no CVA tenderness. [] Extremities: No tenderness, no cyanosis, no clubbing, ROM intact, no edema. [] Neurologic: Alert and oriented X 3, normal motor function, normal sensory function, no focal deficits noted. [] Current Patient Data Vital Signs Vital Signs Date Time Temp Pulse Resp B/P (MAP) Pulse Ox O2 Delivery O2 Flow Rate FiO2 05/09/17 17:07 98.9 64 24 97 Room Air Lab Results Laboratory Tests Test 05/09/17 17:37 White Blood Count 6.0 x10^3/uL (4.0-11.0) Red Blood Count 3.84 x10^6/uL (3.50-5.40) Hemoglobin 9.8 g/dL (12.0-15.5) L Hematocrit 30.4 % (36.0-47.0) L Mean Corpuscular Volume 79 fL (79-100) Mean Corpuscular Hemoglobin 25 pg (25-35) Mean Corpuscular Hemoglobin Concent 32 g/dL (31-37) Red Cell Distribution Width 14.4 % (11.5-14.5) Platelet Count 232 x10^3/uL (140-400) Neutrophils (%) (Auto) 61 % (31-73) Lymphocytes (%) (Auto) 26 % (24-48) Monocytes (%) (Auto) 10 % (0-9) H Eosinophils (%) (Auto) 3 % (0-3) Basophils (%) (Auto) 1 % (0-3) Neutrophils # (Auto) 3.7 x10^3uL (1.8-7.7) Lymphocytes # (Auto) 1.5 x10^3/uL (1.0-4.8) Monocytes # (Auto) 0.6 x10^3/uL (0.0-1.1) Eosinophils # (Auto) 0.2 x10^3/uL (0.0-0.7) Basophils # (Auto) 0.0 x10^3/uL (0.0-0.2) Sodium Level 140 mmol/L (136-145) Potassium Level 4.5 mmol/L (3.5-5.1) Chloride Level 106 mmol/L (98-107) Carbon Dioxide Level 29 mmol/L (21-32) Anion Gap 5 (6-14) L Blood Urea Nitrogen 19 mg/dL (7-20) Creatinine 0.8 mg/dL (0.6-1.0) Estimated GFR (Cockcroft-Gault) 69.6 Glucose Level 98 mg/dL (70-99) Calcium Level 8.4 mg/dL (8.5-10.1) L EKG EKG Interpreted by me: Heart rate 63, sinus rhythm, left axis deviation, nonspecific T-wave inversion in lead 3, no acute ST elevations or depressions[] Radiology/Procedures Radiology/[place] [address] IMAGING REPORT Signed PATIENT: ABDULLAHI WELLER ACCOUNT: [id number] : 1940 LOCATION: ER AGE: 76 SEX: F EXAM STATUS: REG ER ORD. PHYSICIAN: RANGEL CARR MD REASON: chest pain, shortness breath, rule out PE PROCEDURE: CT ANGIOGRAPHY CHEST CT pulmonary angiogram with intravenous contrast History: Elevated d-dimer, shortness of breath Comparison: None. Technique: CT pulmonary angiogram of the chest with attention to the pulmonary arteries was performed after the administration of intravenous contrast, 75 mL Omnipaque-300. Axial 2-D reconstructions were obtained. Coronal 3-D MIPS were obtained of the pulmonary arterial vasculature of the chest. Exposure: One or more of the following individualized dose reduction techniques were utilized for this examination: 1. Automated exposure control 2. Adjustment of the mA and/or kV according to patient size 3. Use of iterative reconstruction technique Findings: Pulmonary arteries are adequately opacified. There is no evidence of pulmonary embolism. Trachea and mainstem bronchi appear patent. Visualized thyroid appears symmetric. No acute airspace disease is identified. No pneumothorax or pleural effusion is seen. No mediastinal lymphadenopathy is seen. Thoracic aorta has normal caliber. Heart and pericardium are unremarkable. Old granulomatous disease of the chest is noted. Impression: 1. No evidence of pulmonary embolism. No acute abnormality identified in the chest. Electronically signed by: Chucky Devlin MD (05/09/2017 7:58 PM) [facility] DICTATED AND SIGNED BY: CHUCKY DEVLIN MD DATE: 05/09/171951 CC: RANGEL CARR MD; ESTEFANI SUAREZ MD ~ [address] [address] IMAGING REPORT Signed PATIENT: ABDULLAHI WELLER ACCOUNT: [id number] : 1940 LOCATION: ER AGE: 76 SEX: F EXAM STATUS: REG ER ORD. PHYSICIAN: RANGEL CARR MD REASON: positive d-dimer, rule out DVT PROCEDURE: VENOUS LOWER EXT BILATERAL Bilateral Lower Extremity Venous Doppler Ultrasound Indication: Bilateral lower extremity swelling, right greater than left. Comparison: None. Procedure: Color Doppler, spectral Doppler, and grayscale images with and without compression are obtained in the area of the common femoral vein, superficial femoral vein - femoral vein junction, main femoral vein (superficial femoral vein) and popliteal vein. Veins of the proximal calf are also imaged. Findings: The right lower extremity is without evidence of deep venous thrombosis. There appears to be a small amount of nonocclusive deep venous thrombosis involving the left superficial femoral vein in the proximal thigh adjacent to a valve; thrombosis is age indeterminate. Impression: 1. Small amount of deep venous thrombosis involving the left superficial femoral vein. 2. No evidence of right lower extremity deep venous thrombosis. Electronically signed by: Chucky Devlin MD (05/09/2017 9:02 PM) [facility] DICTATED AND SIGNED BY: CHUCKY DEVLIN MD DATE: 05/09/172099 CC: RANGEL CARR MD; ESTEFANI SUAREZ MD ~ [] Course & Med Decision Making Course & Med Decision Making Pertinent Labs and Imaging studies reviewed. (See chart for details) Patient's chest pain and shortness of breath have resolved. Blood work showed a positive D-dimer test, thus CTA and bilateral venous Dopplers were ordered in the emergency department. The patient's CTA showed no evidence of acute pulmonary embolism, however the patient's venous Doppler ultrasound did show a nonocclusive superficial femoral DVT. Though no conclusive evidence shows pulmonary embolism, a small peripheral embolism cannot be ruled out and may be the cause of the patient's chest pain symptoms. Patient's vital signs however are stable and patient is in no acute distress at this time. I contacted the patient's primary physician, Dr. Girard. He agreed with initiation of Lovenox for treatment of DVT and stated that the patient could be transferred back to [facility] for continued care. Patient was given 65 units of Lovenox in the emergency department, and patient will continue on 65 units twice daily for anticoagulation. Spoke with patient and patient's family regarding findings and plan of care and they are in agreement. Patient will be transferred by ground EMS back to her rehabilitation facility. Dragon Disclaimer Dragon Disclaimer This chart was dictated in whole or in part using Voice Recognition software in a busy, high-work load, and often noisy Emergency Department environment. It may contain unintended and wholly unrecognized errors or omissions. Departure Departure: Impression: Primary Impression: DVT (deep venous thrombosis) Additional Impressions: COPD (chronic obstructive pulmonary disease) Chest pain Disposition: 03 XFER SNF Condition: STABLE Referrals: ESTEFANI SUAREZ MD (PCP) Patient Instructions: Chronic Obstructive Pulmonary Disease, Deep Vein Thrombosis Additional Instructions: Follow-up with your primary doctor in 1-2 days for reevaluation. Return to emergency department for any worsening symptoms. Scripts Enoxaparin Sodium (LOVENOX) 80 Mg/0.8 Ml Disp.syrin 65 MG SQ BID for 30 Days, DIS.SYR Prov: RANGEL CARR MD 05/09/17 Problem Qualifiers Primary Impression: DVT (deep venous thrombosis) DVT location: lower extremity Affected thrombotic vein of extremity: other lower extremity vein Chronicity: unspecified Laterality: left Qualified Codes: I82.492 - Acute embolism and thrombosis of other specified deep vein of left lower extremity Additional Impressions: COPD (chronic obstructive pulmonary disease) COPD type: unspecified COPD Qualified Codes: J44.9 - Chronic obstructive pulmonary disease, unspecified Chest pain Chest pain type: unspecified Qualified Codes: R07.9 - Chest pain, unspecified RANGEL CARR MD May 09, 2017 18:52
[2017-05-09] MEDS ORDERED: IOHEXOL 300 MG/ML 75 ML VIAL. IV ONE (19:15)
--- NOTE | 2017-05-09 20:01 | RAD ---
CT pulmonary angiogram with intravenous contrast History: Elevated d-dimer, shortness of breath Comparison: None. Technique: CT pulmonary angiogram of the chest with attention to the pulmonary arteries was performed after the administration of intravenous contrast, 75 mL Omnipaque-300. Axial 2-D reconstructions were obtained. Coronal 3-D MIPS were obtained of the pulmonary arterial vasculature of the chest. Exposure: One or more of the following individualized dose reduction techniques were utilized for this examination: 1. Automated exposure control 2. Adjustment of the mA and/or kV according to patient size 3. Use of iterative reconstruction technique Findings: Pulmonary arteries are adequately opacified. There is no evidence of pulmonary embolism. Trachea and mainstem bronchi appear patent. Visualized thyroid appears symmetric. No acute airspace disease is identified. No pneumothorax or pleural effusion is seen. No mediastinal lymphadenopathy is seen. Thoracic aorta has normal caliber. Heart and pericardium are unremarkable. Old granulomatous disease of the chest is noted. Impression: 1. No evidence of pulmonary embolism. No acute abnormality identified in the chest. Electronically signed by: Chucky Nayak MD (05/09/2017 7:58 PM) [facility]
--- NOTE | 2017-05-09 21:05 | RAD ---
Bilateral Lower Extremity Venous Doppler Ultrasound Indication: Bilateral lower extremity swelling, right greater than left. Comparison: None. Procedure: Color Doppler, spectral Doppler, and grayscale images with and without compression are obtained in the area of the common femoral vein, superficial femoral vein - femoral vein junction, main femoral vein (superficial femoral vein) and popliteal vein. Veins of the proximal calf are also imaged. Findings: The right lower extremity is without evidence of deep venous thrombosis. There appears to be a small amount of nonocclusive deep venous thrombosis involving the left superficial femoral vein in the proximal thigh adjacent to a valve; thrombosis is age indeterminate. Impression: 1. Small amount of deep venous thrombosis involving the left superficial femoral vein. 2. No evidence of right lower extremity deep venous thrombosis. Electronically signed by: Chucky Nayak MD (05/09/2017 9:02 PM) [facility]
[2017-05-09] MEDS ORDERED: ENOX80DI SQ (21:19)
[2017-05-09] MEDS ORDERED: ENOXAPARIN ** NOTE DOSE ** SYRINGE SQ ONE (21:30)
[2017-05-09 21:54] VITALS: BP 142/67
== END 2017-05-09 21:55 ==
LOC: ER 16:38
DX: I82.492 Acute embolism and thrombosis of other specified deep vein of left lower extremity (principal); J44.9 Chronic obstructive pulmonary disease, unspecified; K21.9 Gastro-esophageal reflux disease without esophagitis; I10 Essential (primary) hypertension; Z86.73 Personal history of transient ischemic attack (TIA), and cerebral infarction without residual deficits; Z88.5 Allergy status to narcotic agent; Z88.8 Allergy status to other drugs, medicaments and biological substances
CPT/HCPCS: 36415; 51702; 71275; 80048; 85025; 85379; 87040; 93970; 96360; 96361; 96372; 99285; J1650; Q9967; J7030

== ENCOUNTER → 2017-07-11 | Outpatient (CLI) | payer MEDICARE ==
[~2017-07-11] MED LIST changes: +ENOX80DI SQ
--- NOTE | 2017-07-11 12:22 | RAD ---
Indication: Right leg edema. Grayscale, color-flow and duplex Doppler evaluation of the right lower extremity deep venous system was performed. FINDINGS: There is no evidence of a right lower extremity DVT. The right lower extremity venous system demonstrates normal compressibility with normal response to augmentation and Valsalva. No soft tissue fluid collections are identified. IMPRESSION: No evidence of right lower extremity DVT.
== END | disposition home or self-care (01) ==
LOC: US 10:58
PROVIDERS: ATTEND Specialist
DX: R60.0 Localized edema (principal)
CPT/HCPCS: 93971

== ENCOUNTER → 2017-08-08 | Outpatient (CLI) | payer MEDICARE ==
--- NOTE | 2017-08-08 10:10 | RAD ---
Bilateral lower shotty arterial duplex ultrasound 08/08/2017 Indication: Bilateral lower extremity pain and swelling. Comparison study: None Discussion: Ultrasound evaluation of bilateral lower shotty arteries was performed including color Doppler imaging and spectral analysis. No sonographic evidence of focal hemodynamically significant stenosis is identified throughout either lower extremity. Visualized waveforms and velocities are felt to be within normal limits. Mild diffuse atherosclerotic plaquing is seen. Impression: Mild diffuse atherosclerotic vascular disease without evidence of hemodynamically significant focal stenosis involving the major arteries of either lower extremity
== END | disposition home or self-care (01) ==
LOC: US 08:38
PROVIDERS: ATTEND Specialist
DX: I70.293 Other atherosclerosis of native arteries of extremities, bilateral legs (principal); I10 Essential (primary) hypertension
CPT/HCPCS: 93925

== ENCOUNTER 2018-01-09 20:30 | Inpatient (IN) | payer MEDICARE ==
[~2018-01-09] VITALS: Ht 157.5 cm; Wt 69.6 kg
[~2018-01-09 20:30] MED LIST changes: -CITA20TA5 PO; +CITA20TA6 PO
--- NOTE | 2018-01-09 20:38 | ED.ADGEN ---
Past History Past Medical History: Arthritis, COPD, GERD, Hypertension, Stroke, TIA, Other Past Surgical History: Other Smoking: Non-smoker Alcohol Use: None Drug Use: None Adult General Chief Complaint Chief Complaint ".. I just tired all over.. I ve not been right all day.. I sleep .. all day... just weak.. My leg hurts some... (Rt)... " [facility] HPI Patient is a 77 year old female who presents with above hx and complaints of generalized weakness, fatigue and Rt. lower leg pain. Pt. states symptoms started about 0800 and she has spent most of day sleeping. Pt. has chronic Rt side weakness from prior CVA. Pt. denies any new localized symptom, but just generalized weakness. Family states speech is normal for her and the Rt. side weakness is chronic from the last CVA. Pt. has been reported some generalized confusion all day. Pt. has hx. of Arthritis, COPD, GERD, HTN, CVA & TIA, Chronic Pain. Pt. denies any changes in meds. No travel or specific ill contacts. Pt. normally follows with Dr. Vizcarra and Dr. Dmepsey. Pt. does have some baseline dementia. Review of Systems Review of Systems Constitutional: Denies fever or chills [] Eyes: Denies change in visual acuity, redness, or eye pain [] HENT: Denies nasal congestion or sore throat [] Respiratory: Denies cough or shortness of breath [] Cardiovascular: No additional information not addressed in HPI [] GI: Denies abdominal pain, nausea, vomiting, bloody stools or diarrhea [] : Denies dysuria or hematuria [] Musculoskeletal: Denies back pain or joint pain [] Rt. lower leg pain. Generalized weakness. Integument: Denies rash or skin lesions [] Neurologic: Denies headache, focal weakness or sensory changes []Complaints of increased confusion per pt. and family. Endocrine: Denies polyuria or polydipsia [] All other systems were reviewed and found to be within normal limits, except as documented in this note. Family History Family History Not currently available. Current Medications Current Medications Current Medications Medications (Trade) Dose Ordered Sig/Haven Start Time Stop Time Status Last Admin Dose Admin Ceftriaxone Sodium 1 gm/ Sodium Chloride 50 ml @ 100 mls/hr 1X ONCE 01/10/18 00:30 01/10/18 00:33 DC Ceftriaxone Sodium (Rocephin) 1 gm ONCE ONCE 01/10/18 00:45 01/10/18 00:46 DC 01/10/18 00:45 1 GM Oxycodone/ Acetaminophen (Percocet 5/325) 2 tab 1X ONCE 01/10/18 00:45 01/10/18 00:46 DC 01/10/18 00:48 2 TAB See Nursing for home meds. Allergies Allergies Allergies Coded Allergies Type Severity Reaction Last Updated Verified codeine Allergy Intermediate 05/09/17 Yes gluten Allergy Intermediate 05/09/17 No Physical Exam Physical Exam Constitutional: no acute distress, non-toxic appearance. [] HENT: Normocephalic, atraumatic, bilateral external ears normal, oropharynx moist, no oral exudates, nose normal. [] Eyes: PERRLA, EOMI, conjunctiva normal, no discharge. [] Neck: Normal range of motion, no tenderness, supple, no stridor. [] Cardiovascular:Bradycardia Heart rate regular rhythm, no murmur [] Lungs & Thorax: Bilateral breath sounds equal apexes, with some basilar crackles on auscultation [] Abdomen: Bowel sounds normal, soft, no tenderness, no masses, no pulsatile masses. Obese. Skin: Warm, dry, no erythema, no rash. [] Back: No tenderness, no CVA tenderness. [] Extremities: Rt. lower leg tenderness, no cyanosis, no clubbing, ROM intact with crepitation, bilateral lower leg edema, more on Rt. . [] Patient has chronic right-sided weakness from previous stroke. Old surgical scar on the knees. Arthritic changes. No cording noted. Pain localize to bone on palpation. Neurologic: Alert and oriented X 3, No gross motor or sensory function deficits from baseline, , no focal deficits noted. from her Chronic Rt side weakness- ( Family state this is normal). Generalize weakness. Obviously confused. Family state she is obviously confuse from her baseline. Psychologic: Affect anxious, , mood normal. [] Current Patient Data Vital Signs Vital Signs Date Time Temp Pulse Resp B/P (MAP) Pulse Ox O2 Delivery O2 Flow Rate FiO2 01/10/18 00:48 18 97 Room Air 01/10/18 00:28 74 131/71 (91) 01/09/18 20:40 97.5 Lab Results Laboratory Tests Test 01/09/18 20:45 01/09/18 22:02 01/09/18 23:00 01/09/18 23:48 White Blood Count 4.8 x10^3/uL (4.0-11.0) Red Blood Count 4.20 x10^6/uL (3.50-5.40) Hemoglobin 10.5 g/dL (12.0-15.5) L Hematocrit 33.5 % (36.0-47.0) L Mean Corpuscular Volume 80 fL (79-100) Mean Corpuscular Hemoglobin 25 pg (25-35) Mean Corpuscular Hemoglobin Concent 31 g/dL (31-37) Red Cell Distribution Width 15.3 % (11.5-14.5) H Platelet Count 238 x10^3/uL (140-400) Neutrophils (%) (Auto) 52 % (31-73) Lymphocytes (%) (Auto) 33 % (24-48) Monocytes (%) (Auto) 10 % (0-9) H Eosinophils (%) (Auto) 4 % (0-3) H Basophils (%) (Auto) 1 % (0-3) Neutrophils # (Auto) 2.5 x10^3uL (1.8-7.7) Lymphocytes # (Auto) 1.6 x10^3/uL (1.0-4.8) Monocytes # (Auto) 0.5 x10^3/uL (0.0-1.1) Eosinophils # (Auto) 0.2 x10^3/uL (0.0-0.7) Basophils # (Auto) 0.0 x10^3/uL (0.0-0.2) Lactic Acid Level 0.6 mmol/L (0.4-2.0) Sodium Level 144 mmol/L (136-145) Potassium Level 5.1 mmol/L (3.5-5.1) Chloride Level 108 mmol/L (98-107) H Carbon Dioxide Level 27 mmol/L (21-32) Anion Gap 9 (6-14) Blood Urea Nitrogen 23 mg/dL (7-20) H Creatinine 0.8 mg/dL (0.6-1.0) Estimated GFR (Cockcroft-Gault) 69.4 Glucose Level 80 mg/dL (70-99) Calcium Level 9.1 mg/dL (8.5-10.1) Magnesium Level 2.1 mg/dL (1.8-2.4) Creatine Kinase 67 U/L (26-192) Creatine Kinase MB (Mass) < 0.5 ng/mL (0.0-3.6) Creatine Kinase MB Relative Index 0.7 % (0-4) Troponin I Quantitative < 0.017 ng/mL (0-0.055) HF-Zko-E-Type Natriuretic Peptide 99 pg/mL (0-449) Urine Collection Type Unknown Urine Color Yellow Urine Clarity Hazy Urine pH 6.5 Urine Specific [place] 1.010 Urine Protein Neg (NEG-TRACE) Urine Glucose (UA) Neg mg/dL (NEG) Urine Ketones (Stick) Neg mg/dL (NEG) Urine Blood Trace (NEG) Urine Nitrite Pos (NEG) Urine Bilirubin Neg (NEG) Urine Urobilinogen Dipstick 0.2 mg/dL (0.2 mg/dL) Urine Leukocyte Esterase Large (NEG) Urine RBC Occ /HPF (0-2) Urine WBC 5-10 /HPF (0-4) Urine Squamous Epithelial Cells None /LPF Urine Bacteria Few /HPF (0-FEW) Urine Opiates Screen Neg (NEG) Urine Methadone Screen Neg (NEG) Urine Barbiturates Neg (NEG) Urine Phencyclidine Screen Neg (NEG) Urine Amphetamine/Methamphetamine Neg (NEG) Urine Benzodiazepines Screen Neg (NEG) Urine Cocaine Screen Neg (NEG) Urine Cannabinoids Screen Neg (NEG) Urine Ethyl Alcohol Neg (NEG) Prothrombin Time 10.1 SEC (9.4-11.4) Prothrombin Time INR 1.0 (0.9-1.1) PTT < 21 SEC (23-33) L EKG EKG My interpretation of EKG shows a sinus bradycardia. With prolonged DE interval. There is left axis deviation and a fascicular block. No findings acute STEMI with contralateral changes[] Radiology/Procedures Radiology/Procedures My interpretation of chest x-ray shows cardiomegaly. Some mild increased cephalization. Degenerative joint changes.[] Interpretation of tibia fib shows no fracture or dislocation. Hardware and knee appears to be stable. Generalized demineralization. Comparison to prior films on 03/05 2016 no acute changes other than some increase in edema./ My interpretation of femur shows no obvious fracture or dislocation. Arthritic changes and demineralization My interpretation of CT shows no shift, mass, edema, bleed, or fracture. Does have generalized atrophy. Has encephalomalacia Lt cerebellar area. White mater dz. changes. Is some movement artifact noted Course & Med Decision Making Course & Med Decision Making Pertinent Labs and Imaging studies reviewed. (See chart for details) Discussed presentation, testing and tx plan with Dr. Girard- will admit further eval and tx. [] Final Impression Final Impression 1. Generalized Weakness 2. Bradycardia[] 3. UTI 4. Anemia, 5. Mental status change 6. HTN 7. Rt. Leg pain Dragon Disclaimer Dragon Disclaimer This electronic medical record was generated, in whole or in part, using a voice recognition dictation system. GENET PATEL MD Jan 09, 2018 20:38
--- NOTE | 2018-01-09 21:00 | EKG ---
[address] [address] Test Date: 2018-01-09 Test Time: 20:36:30 Pat Name: ABDULLAHI WELLER Department: Room: Gender: F Crew Chief: : 1940 Requested By: GENET PATEL Order Number: [id number] Reading MD: Kevin Naranjo MD Measurements Intervals Soldier Rate: 54 P: 53 NM: 230 QRS: -38 QRSD: 128 T: 17 QT: 422 QTc: 402 Interpretive Statements SINUS RHYTHM PROLONGED NM INTERVAL ABNORMAL LEFT AXIS DEVIATION LEFT ANTERIOR FASCICULAR BLOCK RIGHT BUNDLE BRANCH BLOCK BIFASCICULAR BLOCK Electronically Signed On 01-11-2018 10:20:29 CDT by Kevni Naranjo MD
[2018-01-09 21:08] LABS: BASO % 1 % (0-3); EOS # 0.2 x10^3/uL (0.0-0.7); EOS % 4 % (0-3); HEMATOCRIT 33.5 % (36.0-47.0); HEMOGLOBIN 10.5 g/dL (12.0-15.5); LYMPH # 1.6 x10^3/uL (1.0-4.8); LYMPH % 33 % (24-48); MEAN CORPUSCULAR HEMOGLOBIN 25 pg (25-35); MEAN CORPUSCULAR HGB CONC 31 g/dL (31-37); MEAN CORPUSCULAR VOLUME 80 fL (79-100); MONO # 0.5 x10^3/uL (0.0-1.1); MONO % 10 % (0-9); NEUT # 2.5 x10^3uL (1.8-7.7); NEUT % 52 % (31-73); PLATELET COUNT 238 x10^3/uL (140-400); RED CELL DISTRIBUTION WIDTH 15.3 % (11.5-14.5); WHITE BLOOD COUNT 4.8 x10^3/uL (4.0-11.0)
--- NOTE | 2018-01-09 21:45 | RAD ---
CT scan of the head without contrast 01/09/2018 Clinical History: Right-sided weakness. Mental status changes. Possible fall. Technique: Unenhanced, contiguous, 5 mm axial sections were obtained through the head. One or more of the following individualized dose reduction techniques were utilized for this study: 1. Automated exposure control. 2. Adjustment of the mA and/or kV according to patient size. 3. Use of iterative reconstruction technique. Findings: Comparison study is dated 04/16/2017. There is generalized parenchymal atrophy. Areas of decreased attenuation are seen within the periventricular and subcortical white matter of both cerebral hemispheres consistent with areas of small vessel ischemic disease. An area of encephalomalacia seen involving the left cerebellar hemisphere, unchanged. No acute parenchymal abnormality is seen. No extra-axial fluid collection is noted. No skull fracture is seen. Impression: No acute intracranial abnormality is seen. Electronically signed by: Waldemar Lane MD (01/09/2018 9:41 PM) [facility]
--- NOTE | 2018-01-09 22:07 | RAD ---
AP and lateral right tibia and fibula radiographs 01/09/2018 CLINICAL HISTORY: Right leg pain and weakness. AP and lateral digital radiographs of the right tibia and fibula were obtained. The patient is post right TKA. There is diffuse osteopenia of the visualized bony structures. No fracture or dislocation of the right tibia or fibula is seen. IMPRESSION: No fracture or dislocation right tibia or fibula is seen. Electronically signed by: Waldemar Lane MD (01/09/2018 10:03 PM) [facility]
[2018-01-09 23:02] LABS: ANION GAP 9 (6-14); BLOOD UREA NITROGEN 23 mg/dL (7-20); CALCIUM 9.1 mg/dL (8.5-10.1); CARBON DIOXIDE 27 mmol/L (21-32); CHLORIDE 108 mmol/L (98-107); CREATININE 0.8 mg/dL (0.6-1.0); GFR 69.4; GLUCOSE 80 mg/dL (70-99); MAGNESIUM 2.1 mg/dL (1.8-2.4); POTASSIUM 5.1 mmol/L (3.5-5.1); SODIUM 144 mmol/L (136-145)
[2018-01-09 23:30] LABS: BACTERIA,URINE FEW /HPF (0-FEW); BILIRUBIN,URINE NEG (NEG); CLARITY,URINE HAZY; COLOR,URINE YELLOW; GLUCOSE,URINE NEG (NEG); NITRITE,URINE POS (NEG); RBC,URINE OCC /HPF (0-2); UROBILINOGEN,URINE 0.2 mg/dL (0.2 mg/dL)
[2018-01-09 23:36] LABS: BARBITURATES NEG (NEG); BENZODIAZEPINES NEG (NEG); CANNABINOIDS NEG (NEG); COCAINE NEG (NEG); METHADONE NEG (NEG); OPIATES NEG (NEG); PHENCYCLIDINE NEG (NEG)
[2018-01-09 23:55] LABS: AMPHETAMINE/METHAMPHETAMINE NEG (NEG)
[2018-01-10] VITALS (7 sets, daily range): BP systolic 98–126; BP diastolic 54–76
--- NOTE | 2018-01-10 00:09 | RAD ---
AP and lateral right femur radiographs 01/09/2018 CLINICAL HISTORY: Right leg pain and weakness. 2 AP and 2 lateral digital radiographs of the right foot were obtained. The patient is post right TKA. No fracture or dislocation of the right femur is seen. There is diffuse osteopenia of the visualized bony structures. IMPRESSION: No acute osseous abnormality is seen. Electronically signed by: Waldemar Lane MD (01/10/2018 12:05 AM) [facility]
--- NOTE | 2018-01-10 00:23 | RAD ---
AP portable chest radiograph 01/09/2018 Clinical History: Weakness. An AP erect portable digital radiograph of the chest was obtained. Comparison study is dated 04/16/2017. The cardiac silhouette is mildly enlarged. Atherosclerotic calcification thoracic aorta is seen. No acute pulmonary infiltrate is noted. No pneumothorax or pleural effusion is seen. Degenerative changes are seen involving the thoracic spine and both shoulders. Impression: No acute abnormality is seen. Electronically signed by: Waldemar Lane MD (01/10/2018 12:19 AM) [facility]
[2018-01-10] MEDS ORDERED: cefTRIAXone IV Push 1 GM VIAL. IVP ONE (00:45)
[2018-01-10] MEDS ORDERED: oxyCODONE/APAP 5/325 1 TAB TABLET PO ONE (00:45)
[2018-01-10] MEDS ORDERED: IV RINGERS SOLUTION,LACTATED 1,000 ML IV ONE (01:30)
[2018-01-10] MEDS ORDERED: OXYC-411 PO (04:03)
[2018-01-10] MEDS: GABAPENTIN 300 MG CAPSULE. PO SCH ×3 (09:32→20:11)
[2018-01-10] MEDS: oxyCODONE/APAP 7.5/325 1 TAB TABLET PO PRN (13:22)
--- NOTE | 2018-01-10 15:33 | HP ---
ADMIT DATE: 01/10/2018 HISTORY OF PRESENT ILLNESS: The patient is a 77-year-old female patient who was brought to the Emergency Room complaining that she is tired all over, that she has not been right all day, sleepy all the day, just weak, "my leg hurts." She apparently spent most of the day sleeping, has chronic right-sided weakness from prior CVA, and family states speech is normal for her and the right side weakness is chronic from last CVA. She apparently has been confused all today and was brought to the Emergency Room where she was extensively evaluated and was found to have urine that was yellow, hazy with large amount of leukocyte esterase and 5-10 wbc's, and was admitted with altered mental status and urinary tract infection. Other findings include right lower extremity pain, which is chronic and generalized weakness. 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 She has history of dysphagia status post PEG tube placement, hyperlipidemia, chronic obstructive pulmonary disease. PAST SURGICAL HISTORY: Significant for appendectomy, cholecystectomy, tonsillectomy, total abdominal hysterectomy and bilateral salpingo-oophorectomy, also history of percutaneous endoscopic gastrostomy tube placement and right total knee arthroplasty. ALLERGIES: SHE IS ALLERGIC TO CODEINE AND GLUTEN SHE IS KNOWN TO HAVE CELIAC DISEASE. MEDICATIONS: She is currently on following medications: Amlodipine 5 mg once a day, lisinopril 40 mg once a day, oxycodone/APAP 7.5/325 one tablet every 6 hours, gabapentin 600 mg 3 times a day, citalopram hydrobromide 20 mg once a day, potassium chloride 10 mEq twice a day with meals and sucralfate 1 gram 4 times a day. REVIEW OF SYSTEMS: As per history of present illness. FAMILY HISTORY: Noncontributory. SOCIAL HISTORY: She lives with her . She never smoked, does not drink alcohol. She is retired after working in the [employer] as well as [employer], has 2 sons and 2 daughters. PHYSICAL EXAMINATION: GENERAL: On arrival to the Emergency Room, she looked well and was clearly in no apparent respiratory distress, pale, but no jaundice, cyanosis, or thyromegaly. No jugular venous distension. No lower limb edema. VITAL SIGNS: Her heart rate was 72, blood pressure was 105/76, temperature was 98.3, respiratory rate was 18 and oxygen saturation was 95% on room air. HEAD, EYES, EARS, NOSE, THROAT: Showed she is normocephalic, atraumatic. NECK: Supple. HEART: Showed normal first and second heart sounds. No gallop, rub or murmur. CHEST: Clear to auscultation. No crepitation or rhonchi. ABDOMEN: Distended, soft, nontender. No guarding or rigidity. No organomegaly. All hernial orifices intact. Bowel sounds normal. NEUROLOGIC: She apparently was lethargic, but arousable, very confused; however, she continued to have right-sided hemiplegia. LABORATORY DATA: On arrival to the Emergency Room showed a white cell count of 4800, hemoglobin 10.5, hematocrit 33.5, MCV 80 and platelet count of 238,000. Her prothrombin time was 10.1, INR of 1 and aPTT was less than 21. Her chemistry showed serum sodium 144, potassium 5.1, chloride 108, bicarbonate 27, anion gap of 9, BUN 23, creatinine 0.8, estimated GFR was 69 mL per minute. Her glucose was 80, lactic acid was only 0.6, calcium was 9.1, magnesium was 2.1. Her brain natriuretic peptide was 99. Her urine was yellow, hazy with a pH of 6.5, specific gravity of 1.010. The urine was negative for protein, glucose, ketones, trace of blood, positive for nitrite, and large amount of leukocyte esterase with occasional rbc's, 5-10 wbc's, and a few bacteria. The tox screen was negative for opiates, methadone, barbiturates, phencyclidine, amphetamine, methamphetamine, benzodiazepine, cocaine, cannabinoids and ethyl alcohol. Her x-ray of the right tibia and fibula showed no fracture or dislocation of the right tibia or fibula seen. CT scan of the head showed that there is generalized parenchymal atrophy, areas of decreased attenuation are seen within the periventricular and subcortical white matter of both cerebral hemispheres consistent with areas of small vessel ischemic disease, an area of encephalomalacia involving the left cerebellar hemisphere, unchanged. No acute parenchymal abnormality seen. No extraaxial fluid collection is noted. No skull fracture is seen. Right femur x-ray showed no evidence of fracture. Chest x-ray showed that the cardiac silhouette is mildly enlarged, atherosclerotic calcification of thoracic aorta is seen. No acute pulmonary infiltrate is noted. No pneumothorax or pleural effusion is seen. Degenerative changes are seen involving the thoracic spine and both shoulders. ASSESSMENT AND PLAN: The patient was admitted with altered mental status and was started on ceftriaxone. We will continue all her medication. Continue with IV antibiotic and await the result of the urine culture and sensitivity. We will order SCDs for deep venous thrombosis prophylaxis. OWEN MAGANA MD DR: CALLI/esequiel JOB#: [id number] / [id number]
[2018-01-10] MEDS: POTASSIUM CHLORIDE 10 MEQ TABLET.ER. PO SCH (16:01)
[2018-01-10] MEDS: SUCRALFATE 1 GM TABLET. PO SCH ×2 (17:09→20:11)
[2018-01-10] MEDS: oxyCODONE/APAP 10/325 1 TAB TABLET PO PRN (17:09)
[2018-01-10] MEDS: cefTRIAXone IV Push 1 GM VIAL. IVP SCH (20:11)
[2018-01-11] MEDS: oxyCODONE/APAP 10/325 1 TAB TABLET PO PRN ×4 (01:02→21:06)
[2018-01-11 01:35] VITALS: BP 134/82
[2018-01-11 06:05] VITALS: BP 131/78
[2018-01-11 06:41] LABS: ALBUMIN 2.6 g/dL (3.4-5.0); ALBUMIN/GLOBULIN RATIO 0.8 (1.0-1.7); CALCIUM 8.7 mg/dL (8.5-10.1); CREATININE 0.7 mg/dL (0.6-1.0); GFR 80.9; TOTAL BILIRUBIN 0.2 mg/dL (0.2-1.0)
[2018-01-11 07:00] LABS: BASO % 1 % (0-3); EOS # 0.1 x10^3/uL (0.0-0.7); EOS % 2 % (0-3); HEMATOCRIT 30.3 % (36.0-47.0); HEMOGLOBIN 9.7 g/dL (12.0-15.5); LYMPH # 1.5 x10^3/uL (1.0-4.8); LYMPH % 33 % (24-48); MEAN CORPUSCULAR HEMOGLOBIN 25 pg (25-35); MEAN CORPUSCULAR HGB CONC 32 g/dL (31-37); MEAN CORPUSCULAR VOLUME 78 fL (79-100); MONO # 0.5 x10^3/uL (0.0-1.1); MONO % 10 % (0-9); NEUT # 2.6 x10^3uL (1.8-7.7); NEUT % 55 % (31-73); PLATELET COUNT 195 x10^3/uL (140-400); RED BLOOD COUNT 3.89 x10^6/uL (3.50-5.40); RED CELL DISTRIBUTION WIDTH 15.2 % (11.5-14.5); WHITE BLOOD COUNT 4.7 x10^3/uL (4.0-11.0)
[2018-01-11] MEDS: SUCRALFATE 1 GM TABLET. PO SCH ×4 (08:31→21:07)
[2018-01-11] MEDS: CITALOPRAM 20 MG TABLET. PO SCH (08:32)
[2018-01-11] MEDS: LISINOPRIL 20 MG TABLET PO SCH (08:32)
[2018-01-11] MEDS: GABAPENTIN 300 MG CAPSULE. PO SCH ×3 (08:32→21:07)
[2018-01-11] MEDS: POTASSIUM CHLORIDE 10 MEQ TABLET.ER. PO SCH ×2 (08:32→18:10)
[2018-01-11] MEDS: amLODIPine BESYLATE 5 MG TABLET PO SCH (09:20)
[2018-01-11 10:40] VITALS: BP 122/73
--- NOTE | 2018-01-11 13:02 | PN ---
DATE: 01/11/2018 SUBJECTIVE: The patient is resting comfortably in her recliner, in no apparent distress. She was sleepy, but arousable. Nursing staff, ____ managed to walk with physical therapist about 50 feet. The pain in her right leg is much better. She is more alert and lucid. OBJECTIVE: GENERAL: When I examined her, she was pale, no jaundice or cyanosis. No lymphadenopathy, no thyromegaly. No jugular venous distension. No limb edema. VITAL SIGNS: Her heart rate was 56, blood pressure 122/73, temperature was 97.6, respiratory rate was 18 and oxygen saturation was 94%. HEAD, EYES, EARS, NOSE AND THROAT: Normocephalic, atraumatic. NECK: Supple. HEART: Showed normal first and second heart sounds with no gallop, rub or murmur. CHEST: Clear to auscultation. No crepitation or rhonchi. ABDOMEN: Distended, soft, nontender. No guarding or rigidity. No organomegaly. Hernial orifice intact. Bowel sounds normal. NEUROLOGIC: She is awake, alert. She has aphasia and dysphagia and right-sided hemiplegia. Apparently, she is now on a regular diet. Her intake over the last 24 hours was 478, output was 150. LABORATORY DATA: This morning showed her white cell count was 4700, hemoglobin 9.7, hematocrit 30, MCV 78, and platelet count of 195,000. Her chemistry showed a serum sodium of 144, potassium 4, chloride 110, bicarbonate 27, anion gap of 7, BUN 12, creatinine 0.7, estimated GFR was 81 mL per minute. Her glucose was 84, calcium was 8.7. Total bilirubin, AST, ALT normal, alkaline phosphatase was slightly elevated. Total protein 6, albumin was 2.9. ASSESSMENT: 1. Altered mental status, improved. 2. Urinary tract infection and is currently on ceftriaxone. So far, her urine culture is still pending at the time of this dictation. 3. Other medical problems including left middle cerebral artery territory infarct with right-sided hemiplegia and aphasia. 4. Dysphagia, resolved. Her PEG tube was removed. 5. Hypertension. 6. Degenerative joint disease. 7. Depression. 8. Generalized osteoarthritis. 9. Chronic obstructive pulmonary disease. PLAN: To continue with the IV antibiotic. Continue with pain medication. Continue with physical and occupational therapy. Await the result of culture and sensitivity and hopefully discharge her tomorrow. OWEN MAGANA MD DR: CALLI/esequiel JOB#: [id number] / [id number]
[2018-01-11 15:00] VITALS: BP 131/72
[2018-01-11 19:15] VITALS: BP 99/62
[2018-01-11] MEDS: oxyCODONE/APAP 7.5/325 1 TAB TABLET PO PRN (21:07)
[2018-01-11] MEDS: LACTOBACILLUS RHAMNOSUS GG 1 CAPSULE. PO SCH (21:07)
[2018-01-11] MEDS: cefTRIAXone IV Push 1 GM VIAL. IVP SCH (21:08)
[2018-01-11 23:00] VITALS: BP 123/67
[2018-01-12] MEDS: oxyCODONE/APAP 10/325 1 TAB TABLET PO PRN ×2 (04:56→10:46)
[2018-01-12] MEDS: LISINOPRIL 20 MG TABLET PO SCH (08:57)
[2018-01-12] MEDS: GABAPENTIN 300 MG CAPSULE. PO SCH ×2 (08:58→13:25)
[2018-01-12] MEDS: POTASSIUM CHLORIDE 10 MEQ TABLET.ER. PO SCH (08:58)
[2018-01-12] MEDS: CITALOPRAM 20 MG TABLET. PO SCH (08:58)
[2018-01-12] MEDS: LACTOBACILLUS RHAMNOSUS GG 1 CAPSULE. PO SCH (08:58)
[2018-01-12] MEDS: SUCRALFATE 1 GM TABLET. PO SCH ×2 (08:59→13:24)
[2018-01-12] MEDS: amLODIPine BESYLATE 5 MG TABLET PO SCH (09:00)
[2018-01-12 11:06] VITALS: BP 113/75
[2018-01-12] MEDS ORDERED: NITR100C62 PO (14:35)
--- NOTE | 2018-01-12 16:57 | PDOC ---
SUBJECTIVE: Ms Lindsay was awake and alert sitting up in a recliner when I found her. She states that she has continued to improve overnight and is hoping to go home today. Both she and the nursing staff deny any confusion or altered cognition. She denies any urinary symptoms no abdominal discomfort nausea or vomiting, she does admit to her baseline chronic right leg discomfort which is controlled with oral medications. I find her to be very pleasant and she denies any complaints questions. OBJECTIVE: Problems: Problems Medical Problems: (1) Mental status change Status: Acute (2) UTI (urinary tract infection) Status: Acute Vital Signs: Vital Signs Date Time Temp Pulse Resp B/P (MAP) Pulse Ox O2 Delivery O2 Flow Rate FiO2 01/12/18 11:06 97.8 65 18 113/75 (88) 94 01/12/18 09:00 Room Air I & O Intake and Output 01/12/18 07:00 Intake Total 1320 ml Balance 1320 ml Intake Oral 1320 ml # Voids 4 # Bowel Movements 1 Labs: Laboratory Tests Test 01/11/18 05:38 White Blood Count 4.7 x10^3/uL (4.0-11.0) Red Blood Count 3.89 x10^6/uL (3.50-5.40) Hemoglobin 9.7 g/dL (12.0-15.5) Hematocrit 30.3 % (36.0-47.0) Mean Corpuscular Volume 78 fL (79-100) Mean Corpuscular Hemoglobin 25 pg (25-35) Mean Corpuscular Hemoglobin Concent 32 g/dL (31-37) Red Cell Distribution Width 15.2 % (11.5-14.5) Platelet Count 195 x10^3/uL (140-400) Neutrophils (%) (Auto) 55 % (31-73) Lymphocytes (%) (Auto) 33 % (24-48) Monocytes (%) (Auto) 10 % (0-9) Eosinophils (%) (Auto) 2 % (0-3) Basophils (%) (Auto) 1 % (0-3) Neutrophils # (Auto) 2.6 x10^3uL (1.8-7.7) Lymphocytes # (Auto) 1.5 x10^3/uL (1.0-4.8) Monocytes # (Auto) 0.5 x10^3/uL (0.0-1.1) Eosinophils # (Auto) 0.1 x10^3/uL (0.0-0.7) Basophils # (Auto) 0.0 x10^3/uL (0.0-0.2) Sodium Level 144 mmol/L (136-145) Potassium Level 4.0 mmol/L (3.5-5.1) Chloride Level 110 mmol/L (98-107) Carbon Dioxide Level 27 mmol/L (21-32) Anion Gap 7 (6-14) Blood Urea Nitrogen 12 mg/dL (7-20) Creatinine 0.7 mg/dL (0.6-1.0) Estimated GFR (Cockcroft-Gault) 80.9 BUN/Creatinine Ratio 17 (6-20) Glucose Level 84 mg/dL (70-99) Calcium Level 8.7 mg/dL (8.5-10.1) Total Bilirubin 0.2 mg/dL (0.2-1.0) Aspartate Amino Transf (AST/SGOT) 18 U/L (15-37) Alanine Aminotransferase (ALT/SGPT) 23 U/L (14-59) Alkaline Phosphatase 157 U/L (46-116) Total Protein 6.0 g/dL (6.4-8.2) Albumin 2.6 g/dL (3.4-5.0) Albumin/Globulin Ratio 0.8 (1.0-1.7) Physical Exam: GENERAL: Mild pallor, alert and oriented 3 in no distress HEENT: Normocephalic atraumatic, nose and throat are clear mucous membranes are moist NECK: Supple and nontender CARDIOVASCULAR: Normal S1 and S2 no murmur PULMONARY: Good air movement with no wheezes no respiratory distress ABDOMEN: Soft nontender no palpable masses ASSESSMENT: 1. Altered mental status: Resolved 2. Urinary tract infection: Continued improvement PLAN: Patient will be discharged home. Symptomatic improvement with Rocephin. Urine culture was apparently not sent so outpatient antibiotics will be empiric. Nursing staff states the patient's PCP has requested the patient be sent out with Macrobid 100 mg twice a day for 5 days. The patient will follow-up with her PCP next week and home health has been arranged by case management. JACQUI MCGUIRE DO Jan 12, 2018 4:57 pm
== END 2018-01-12 16:35 | disposition home health service (06) | DRG 871 ==
LOC: ER 20:30 → ICU 01-10 00:30 → ER 01-10 01:54 → 1 SOUTH 01-10 16:04
PROVIDERS: ADMIT Internal Medicine; ATTEND Internal Medicine
DX: A41.9 Sepsis, unspecified organism (principal); G93.41 Metabolic encephalopathy; E43 Unspecified severe protein-calorie malnutrition; N39.0 Urinary tract infection, site not specified; I69.351 Hemiplegia and hemiparesis following cerebral infarction affecting right dominant side; R47.01 Aphasia; R64 Cachexia; J44.9 Chronic obstructive pulmonary disease, unspecified; K21.9 Gastro-esophageal reflux disease without esophagitis; I10 Essential (primary) hypertension; R13.10 Dysphagia, unspecified; M15.9 Polyosteoarthritis, unspecified; F32.9 Major depressive disorder, single episode, unspecified; F03.90 Unspecified dementia, unspecified severity, without behavioral disturbance, psychotic disturbance, mood disturbance, and anxiety; E78.5 Hyperlipidemia, unspecified; G89.29 Other chronic pain; D64.9 Anemia, unspecified; Z96.651 Presence of right artificial knee joint; Z93.1 Gastrostomy status; Z90.710 Acquired absence of both cervix and uterus; Z90.49 Acquired absence of other specified parts of digestive tract; Z90.79 Acquired absence of other genital organ(s); Z90.722 Acquired absence of ovaries, bilateral; Z88.5 Allergy status to narcotic agent; Z88.8 Allergy status to other drugs, medicaments and biological substances; Z79.899 Other long term (current) drug therapy; Z68.28 Body mass index [BMI] 28.0-28.9, adult
CPT/HCPCS: 36415; 70450; 71045; 73552; 73590; 80048; 80053; 80307; 81001; 82553; 83605; 83735; 83880; 84484; 85025; 85610; 85730; 87040; 87641; 93005; 96374; J0696; J7120; 97110; 97116; 97530; 97535; 99285-25; G0479

== ENCOUNTER 2018-05-07 05:31 | Emergency (ER) | payer MEDICARE ==
[~2018-05-07] VITALS: Ht 157.5 cm; Wt 69.2 kg
[~2018-05-07 05:31] MED LIST changes: -AMLO5TAB2 PO; +AMLO5TAB7 PO; +NITR100C62 PO; +OXYC-411 PO
[2018-05-07 05:35] VITALS: BP 113/75
[2018-05-07] MEDS ORDERED: IV NORMAL SALINE 1,000ML 1,000 ML IV ONE (05:45)
--- NOTE | 2018-05-07 05:53 | PHYS DOC ---
Past History Past Medical History: Arthritis, COPD, GERD, Hypertension, Stroke, TIA, Other Past Surgical History: Appendectomy, Cholecystectomy, Hysterectomy, Knee Replacement, Oophorectomy, Tonsillectomy Smoking: Non-smoker Alcohol Use: None Drug Use: None Adult General Chief Complaint Chief Complaint: abdominal pain HPI HPI 77-year-old female resents via EMS with abdominal pain. She was at home and complaining of abdominal pain so her family called EMS. Patient is not really able to tell me we are in her abdomen she has the most pain. She says that it feels like it's all over. She cannot tell her last bowel movement was. She has a previous stroke with deficits on the right side. She also complains of some right sided lower back pain. There is a rash in this area. She denies fever or chills. Review of Systems Review of Systems Constitutional: Denies fever or chills [] Eyes: Denies change in visual acuity, redness, or eye pain [] HENT: Denies nasal congestion or sore throat [] Respiratory: Denies cough or shortness of breath [] Cardiovascular: No additional information not addressed in HPI [] GI: abdominal pain. Denies nausea, vomiting, bloody stools or diarrhea [] : Denies dysuria or hematuria [] Musculoskeletal: Denies back pain or joint pain [] Integument: Rash on lower right back[] Neurologic: Denies headache, focal weakness or sensory changes [] Endocrine: Denies polyuria or polydipsia [] All other systems were reviewed and found to be within normal limits, except as documented in this note. Current Medications Current Medications Current Medications Medications (Trade) Dose Ordered Sig/Haven Start Time Stop Time Status Last Admin Dose Admin Info (Do NOT chart on this entry -- for MONITORING) 1 each PRN DAILY PRN 05/07/18 06:00 05/09/18 05:59 Iohexol (Omnipaque 300 Mg/ml) 75 ml 1X ONCE 05/07/18 06:00 05/07/18 06:01 Sodium Chloride 1,000 ml @ 1,000 mls/hr 1X ONCE 05/07/18 05:45 05/07/18 06:44 Valacyclovir HCl (Valtrex) 1,000 mg 1X ONCE 05/07/18 06:00 05/07/18 06:01 Allergies Allergies Allergies Coded Allergies Type Severity Reaction Last Updated Verified codeine Allergy Intermediate 05/09/17 Yes gluten Allergy Intermediate 05/09/17 No Physical Exam Physical Exam Constitutional: Well developed, well nourished, no acute distress, non-toxic appearance. [] HENT: Normocephalic, atraumatic, bilateral external ears normal, oropharynx dry , no oral exudates, nose normal. [] Eyes: PERRLA, EOMI, conjunctiva normal, no discharge. [] Neck: Normal range of motion, no tenderness, supple, no stridor. [] Cardiovascular:Heart rate regular rhythm, no murmur [] Lungs & Thorax: Bilateral breath sounds clear to auscultation [] Abdomen: Bowel sounds normal, soft, no tenderness, no masses, no pulsatile masses. [] Skin: Scattered erythematous papules on the patient's right lower back consistent with early shingles[] Back: No tenderness, no CVA tenderness. [] Extremities: No tenderness, no cyanosis, no clubbing, ROM intact, no edema. [] Neurologic: Alert and oriented, weakness in the right arm and right lower extremity, normal sensory function. [] Psychologic: Affect normal, judgement normal, mood normal. [] EKG EKG [] Radiology/Procedures Radiology/Procedures [] Course & Med Decision Making Course & Med Decision Making Pertinent Labs and Imaging studies reviewed. (See chart for details) The patient's labs and imaging are pending. I have signed out the patient to Dr. Hull at 0600. [] Dragon Disclaimer Dragon Disclaimer This electronic medical record was generated, in whole or in part, using a voice recognition dictation system. Departure Departure: Referrals: ESTEFANI SUAREZ MD (PCP) BERTA PEACOCK DO May 07, 2018 05:53
[2018-05-07] MEDS ORDERED: valACYclovir 500 MG TABLET. PO ONE (06:00)
[2018-05-07] MEDS ORDERED: CONTRAST GIVEN MC PRN (06:00)
[2018-05-07] MEDS ORDERED: IOHEXOL 300 MG/ML 75 ML VIAL. IV ONE (06:00)
[2018-05-07 06:22] LABS: BASO # 0.1 x10^3/uL (0.0-0.2); BASO % 1 % (0-3); EOS # 0.2 x10^3/uL (0.0-0.7); EOS % 3 % (0-3); HEMATOCRIT 33.4 % (36.0-47.0); HEMOGLOBIN 10.5 g/dL (12.0-15.5); LYMPH # 1.2 x10^3/uL (1.0-4.8); LYMPH % 16 % (24-48); MEAN CORPUSCULAR HEMOGLOBIN 25 pg (25-35); MEAN CORPUSCULAR HGB CONC 31 g/dL (31-37); MEAN CORPUSCULAR VOLUME 80 fL (79-100); MONO # 0.7 x10^3/uL (0.0-1.1); MONO % 10 % (0-9); NEUT # 5.1 x10^3uL (1.8-7.7); NEUT % 70 % (31-73); PLATELET COUNT 264 x10^3/uL (140-400); RED BLOOD COUNT 4.16 x10^6/uL (3.50-5.40); RED CELL DISTRIBUTION WIDTH 16.1 % (11.5-14.5); WHITE BLOOD COUNT 7.2 x10^3/uL (4.0-11.0)
[2018-05-07 06:38] LABS: ALBUMIN 2.9 g/dL (3.4-5.0); ALBUMIN/GLOBULIN RATIO 0.8 (1.0-1.7); CALCIUM 8.8 mg/dL (8.5-10.1); CREATININE 0.9 mg/dL (0.6-1.0); GFR 60.6; POTASSIUM 5.4 mmol/L (3.5-5.1); TOTAL BILIRUBIN 0.1 mg/dL (0.2-1.0); TOTAL PROTEIN 6.4 g/dL (6.4-8.2)
[2018-05-07] MEDS ORDERED: ALBUTEROL SULFATE 2.5 MG/3 ML NEBU. CONT NEB ONE (07:00)
[2018-05-07] MEDS ORDERED: CHOL10003 PO (07:08)
[2018-05-07] MEDS ORDERED: ASPI81TA50 PO (07:08)
[2018-05-07 08:04] LABS: BACTERIA,URINE FEW /HPF (0-FEW); BILIRUBIN,URINE NEG (NEG); CLARITY,URINE HAZY; COLOR,URINE STRAW; GLUCOSE,URINE NEG (NEG); NITRITE,URINE POS (NEG); RBC,URINE 0 /HPF (0-2); SQUAMOUS EPITHELIAL CELL,UR FEW /LPF; UROBILINOGEN,URINE 0.2 mg/dL (0.2 mg/dL)
--- NOTE | 2018-05-07 08:30 | RAD ---
CT study of the abdomen and pelvis with IV contrast Clinical indications: Abdominal pain. 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 History of appendectomy and cholecystectomy and hysterectomy. TECHNIQUE: After IV infusion of 75 cc of Omnipaque 300, helical CT scanning of the abdomen and pelvis was performed. No GI contrast was administered. This may decrease the sensitivity to detect GI tract pathology. PQRS compliance Statement One or more of the following individualized dose reduction techniques were utilized for this study: 1. Automated exposure control 2. Adjustment of the mA and/or kV according to patient size 3. Use of iterative reconstruction technique COMPARISON: No recent study available. FINDINGS: No focal hepatic mass is seen. There is dilatation of the intrahepatic and extra hepatic biliary tree down into the head of the pancreas near the ampulla. The common bile duct measures up to 10 mm in caliber. There is fatty atrophy of the head and neck and part of the body of the pancreas. No focal pancreatic mass is seen otherwise. The gallbladder is surgically absent. The spleen is not enlarged. No adrenal mass is seen. No renal mass or hydronephrosis or hydroureter is seen. No urinary tract stone is seen. No renal mass is seen. Urinary bladder wall is smooth. No focal aneurysmal dilatation of the abdominal aorta is seen. IVC filter is present. No enlarged abdominal or pelvic lymphadenopathy is evident. There is mild fecal retention throughout the colon. Colon is not abnormally distended otherwise. No obstructive bowel pattern is evident. The terminal ileum is unremarkable. Midline abdominal wall protrusion is seen at the level of the umbilicus. No inflammatory change or bowel wall thickening is seen here. No free fluid or free air is evident. Poor distention of the stomach and duodenum is evident. No lung base consolidation is evident. There is a compression fracture of the superior endplate of L2. No osteolytic process is seen. IMPRESSION: Dilatation of the intrahepatic and extra hepatic biliary tree down to the level of the ampulla. This may be secondary to the reservoir effect after cholecystectomy but correlation with liver function tests is recommended to exclude a distal common bile duct obstruction. Compression fracture of the superior endplate of L2 of indeterminate age. Electronically signed by: Dereck Bhakta MD (05/07/2018 8:27 AM) [facility]
[2018-05-07] MEDS ORDERED: IV NORMAL SALINE 50ML 50 ML ONE (08:53)
[2018-05-07] MEDS ORDERED: cefTRIAXone SODIUM 1 GM VIAL IV ONE (08:53)
[2018-05-07] MEDS ORDERED: MAGN296S9 PO (08:58)
[2018-05-07] MEDS ORDERED: ACYC400T PO (08:58)
[2018-05-07] MEDS ORDERED: SULF1TAB24 PO (08:58)
--- NOTE | 2018-05-07 08:58 | PHYS DOC ---
Past History Past Medical History: Arthritis, COPD, CVA, GERD, Hypertension, Stroke, TIA, Other Past Surgical History: Appendectomy, Cholecystectomy, Hysterectomy, Knee Replacement, Oophorectomy, Tonsillectomy Smoking: Non-smoker Alcohol Use: None Drug Use: None Adult General Chief Complaint Chief Complaint: ABDOMINAL PAIN HPI HPI Patient care transferred to [place] at 0600. Patient is a 77 year old female who presents with complaining of abdominal pain for 4 days as a constant pain without radiation. Patient denies nausea and vomiting and diarrhea and states she didn't have any bowel movement for the last 4 days but her states she had a bowel movement 2 days ago. Patient denies skin rash and itching and pain in her back. She denies urinary symptoms, fever and chills, chest pain, shortness of breath, history of abdominal pain. Review of Systems Review of Systems Constitutional: Denies fever or chills [] Eyes: Denies change in visual acuity, redness, or eye pain [] HENT: Denies nasal congestion or sore throat [] Respiratory: Denies cough or shortness of breath [] Cardiovascular: No additional information not addressed in HPI [] GI: Reports abdominal pain, denies nausea, vomiting, bloody stools or diarrhea [ ] : Denies dysuria or hematuria [] Musculoskeletal: Denies back pain or joint pain [] Integument: Denies rash or skin lesions [] Neurologic: Denies headache, focal weakness or sensory changes [] Endocrine: Denies polyuria or polydipsia [] All other systems were reviewed and found to be within normal limits, except as documented in this note. Current Medications Current Medications Current Medications Medications (Trade) Dose Ordered Sig/Haven Start Time Stop Time Status Last Admin Dose Admin Albuterol Sulfate (Ventolin) 10 mg 1X ONCE 05/07/18 07:00 05/07/18 07:01 DC 05/07/18 07:36 10 MG Fentanyl Citrate (Fentanyl 2ml Vial) 50 mcg 1X ONCE 05/07/18 07:00 05/07/18 07:01 DC 05/07/18 06:25 50 MCG Info (Do NOT chart on this entry -- for MONITORING) 1 each PRN DAILY PRN 05/07/18 06:00 05/09/18 05:59 Iohexol (Omnipaque 300 Mg/ml) 75 ml 1X ONCE 05/07/18 06:00 10/15/18 06:01 DC Sodium Chloride 1,000 ml @ 1,000 mls/hr 1X ONCE 05/07/18 05:45 05/07/18 06:44 DC 05/07/18 06:25 1,000 MLS/HR Valacyclovir HCl (Valtrex) 1,000 mg 1X ONCE 05/07/18 06:00 05/07/18 06:01 DC 05/07/18 06:25 1,000 MG Allergies Allergies Allergies Coded Allergies Type Severity Reaction Last Updated Verified codeine Allergy Intermediate 05/07/18 Yes gluten Allergy Intermediate 05/07/18 No Physical Exam Physical Exam Constitutional: Well nourished, mild distress, non-toxic appearance. [] HENT: Normocephalic, atraumatic, oropharynx moist, no oral exudates, nose normal. [] Eyes: PERRLA, EOMI, conjunctiva normal, no discharge. [] Neck: Normal range of motion, no tenderness, supple, no stridor. [] Cardiovascular:Heart rate regular rhythm, no murmur [] Lungs & Thorax: Bilateral breath sounds clear to auscultation [] Abdomen: Bowel sounds normal, soft, no tenderness, no masses, no pulsatile masses, a few erythematous rash in right flank. [] Skin: Warm, dry, no erythema, erythematous papular and vesicular rash in right back without passing the midline matching with shingles Back: No tenderness, no CVA tenderness. [] Extremities: No tenderness, no cyanosis, no clubbing, ROM intact, no edema. [] Neurologic: Alert and oriented X 2, right upper and lower extremity weakness related to previous CVA. Psychologic: Affect anxious, judgement normal, mood normal. [] Current Patient Data Vital Signs Vital Signs Date Time Temp Pulse Resp B/P (MAP) Pulse Ox O2 Delivery O2 Flow Rate FiO2 05/07/18 07:40 98 Room Air 05/07/18 05:35 98.3 58 22 Lab Results Laboratory Tests Test 05/07/18 06:05 05/07/18 07:40 White Blood Count 7.2 x10^3/uL (4.0-11.0) Red Blood Count 4.16 x10^6/uL (3.50-5.40) Hemoglobin 10.5 g/dL (12.0-15.5) L Hematocrit 33.4 % (36.0-47.0) L Mean Corpuscular Volume 80 fL (79-100) Mean Corpuscular Hemoglobin 25 pg (25-35) Mean Corpuscular Hemoglobin Concent 31 g/dL (31-37) Red Cell Distribution Width 16.1 % (11.5-14.5) H Platelet Count 264 x10^3/uL (140-400) Neutrophils (%) (Auto) 70 % (31-73) Lymphocytes (%) (Auto) 16 % (24-48) L Monocytes (%) (Auto) 10 % (0-9) H Eosinophils (%) (Auto) 3 % (0-3) Basophils (%) (Auto) 1 % (0-3) Neutrophils # (Auto) 5.1 x10^3uL (1.8-7.7) Lymphocytes # (Auto) 1.2 x10^3/uL (1.0-4.8) Monocytes # (Auto) 0.7 x10^3/uL (0.0-1.1) Eosinophils # (Auto) 0.2 x10^3/uL (0.0-0.7) Basophils # (Auto) 0.1 x10^3/uL (0.0-0.2) Sodium Level 141 mmol/L (136-145) Potassium Level 5.4 mmol/L (3.5-5.1) H Chloride Level 106 mmol/L (98-107) Carbon Dioxide Level 27 mmol/L (21-32) Anion Gap 8 (6-14) Blood Urea Nitrogen 20 mg/dL (7-20) Creatinine 0.9 mg/dL (0.6-1.0) Estimated GFR (Cockcroft-Gault) 60.6 BUN/Creatinine Ratio 22 (6-20) H Glucose Level 95 mg/dL (70-99) Calcium Level 8.8 mg/dL (8.5-10.1) Total Bilirubin 0.1 mg/dL (0.2-1.0) L Aspartate Amino Transferase (AST) 22 U/L (15-37) Alanine Aminotransferase (ALT) 28 U/L (14-59) Alkaline Phosphatase 217 U/L (46-116) H Troponin I Quantitative < 0.017 ng/mL (0-0.055) Total Protein 6.4 g/dL (6.4-8.2) Albumin 2.9 g/dL (3.4-5.0) L Albumin/Globulin Ratio 0.8 (1.0-1.7) L Lipase 58 U/L (73-393) L Urine Collection Type U cath Urine Color Straw Urine Clarity Hazy Urine pH 7.0 Urine Specific [place] 1.010 Urine Protein Neg (NEG-TRACE) Urine Glucose (UA) Neg mg/dL (NEG) Urine Ketones (Stick) Neg mg/dL (NEG) Urine Blood Neg (NEG) Urine Nitrite Pos (NEG) Urine Bilirubin Neg (NEG) Urine Urobilinogen Dipstick 0.2 mg/dL (0.2 mg/dL) Urine Leukocyte Esterase Mod (NEG) Urine RBC 0 /HPF (0-2) Urine WBC 5-10 /HPF (0-4) Urine Squamous Epithelial Cells Few /LPF Urine Bacteria Few /HPF (0-FEW) EKG EKG Page interpreted by me. EKG at 0 721 showed normal sinus rhythm at rate of 73 with multiple artifact, prolonged PA interval at 220, abnormal left axis deviation, no acute ST and T-wave abnormalities. Radiology/Procedures Radiology/[place] [address] IMAGING REPORT Signed PATIENT: ABDULLAHI WELLER ACCOUNT: [id number] : 1940 LOCATION: ER AGE: 77 SEX: F EXAM STATUS: REG ER ORD. PHYSICIAN: BERTA PEACOCK DO REASON: abdominal pain PROCEDURE: CT ABD PELV W/ IV CONTRST ONLY CT study of the abdomen and pelvis with IV contrast Clinical indications: Abdominal pain. 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 History of appendectomy and cholecystectomy and hysterectomy. TECHNIQUE: After IV infusion of 75 cc of Omnipaque 300, helical CT scanning of the abdomen and pelvis was performed. No GI contrast was administered. This may decrease the sensitivity to detect GI tract pathology. PQRS compliance Statement One or more of the following individualized dose reduction techniques were utilized for this study: 1. Automated exposure control 2. Adjustment of the mA and/or kV according to patient size 3. Use of iterative reconstruction technique COMPARISON: No recent study available. FINDINGS: No focal hepatic mass is seen. There is dilatation of the intrahepatic and extra hepatic biliary tree down into the head of the pancreas near the ampulla. The common bile duct measures up to 10 mm in caliber. There is fatty atrophy of the head and neck and part of the body of the pancreas. No focal pancreatic mass is seen otherwise. The gallbladder is surgically absent. The spleen is not enlarged. No adrenal mass is seen. No renal mass or hydronephrosis or hydroureter is seen. No urinary tract stone is seen. No renal mass is seen. Urinary bladder wall is smooth. No focal aneurysmal dilatation of the abdominal aorta is seen. IVC filter is present. No enlarged abdominal or pelvic lymphadenopathy is evident. There is mild fecal retention throughout the colon. Colon is not abnormally distended otherwise. No obstructive bowel pattern is evident. The terminal ileum is unremarkable. Midline abdominal wall protrusion is seen at the level of the umbilicus. No inflammatory change or bowel wall thickening is seen here. No free fluid or free air is evident. Poor distention of the stomach and duodenum is evident. No lung base consolidation is evident. There is a compression fracture of the superior endplate of L2. No osteolytic process is seen. IMPRESSION: Dilatation of the intrahepatic and extra hepatic biliary tree down to the level of the ampulla. This may be secondary to the reservoir effect after cholecystectomy but correlation with liver function tests is recommended to exclude a distal common bile duct obstruction. Compression fracture of the superior endplate of L2 of indeterminate age. Electronically signed by: Adiel Bhakta MD (05/07/2018 8:27 AM) [facility] DICTATED AND SIGNED BY: ADIEL BHAKTA MD DATE: 05/07/18 0806 CC: BERTA PEACOCK DO; SHANAE ROSSI MD; ESTEFANI SUAREZ MD ~ Course & Med Decision Making Course & Med Decision Making Pertinent Labs and Imaging studies reviewed. (See chart for details) Evaluation of patient in ER showed 77-year-old poor historian female patient complaining of abdominal pain for 4 days. Patient had shingles in right back with extending to right flank with unremarkable labs. CT of abdomen and pelvis showed mildly dilated biliary system with normal liver function tests and without right upper quadrant tenderness or sign of jaundice. Patient treated with fentanyl and felt better. Patient already taking oxycodone at home. Patient had potassium of 5.4 and taking potassium daily. Patient treated with albuterol and instructed to hold on potassium today. Plan discharge patient home with diagnosis of shingles abdominal pain related to early shingles. Dragon Disclaimer Dragon Disclaimer This electronic medical record was generated, in whole or in part, using a voice recognition dictation system. Departure Departure: Impression: Primary Impression: Shingles Additional Impressions: Hyperkalemia Urinary tract infection Abdominal pain Constipation Disposition: HOME, SELF-CARE (at 0855) Condition: IMPROVED Referrals: ESTEFANI SUAREZ MD (PCP) Patient Instructions: Abdominal Pain, Hyperkalemia, Shingles, Urinary Tract Infection Additional Instructions: Drink plenty of liquids Follow-up with your primary care physician in 3-5 days Return to ER if not getting better Do not take your potassium medication today, take your potassium tomorrow Scripts Magnesium Citrate (MAGNESIUM CITRATE) 296 Ml Solution 296 ML PO ONCE, #296 ML Prov: SHANAE ROSSI MD 05/07/18 Sulfamethoxazole/Trimethoprim (BACTRIM DS TABLET) 1 Each Tablet 1 TAB PO BID, #14 TAB Prov: SHANAE ROSSI MD 05/07/18 Acyclovir (ACYCLOVIR) 400 Mg Tablet 1 TAB PO TID, #21 TAB Prov: SHANAE ROSSI MD 05/07/18 Problem Qualifiers SHANAE ROSSI MD May 07, 2018 08:58
--- NOTE | 2018-05-08 13:49 | EKG ---
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
== END 2018-05-07 10:10 | disposition home or self-care (01) ==
LOC: ER 05:31
DX: N39.0 Urinary tract infection, site not specified (principal); K59.00 Constipation, unspecified; E87.5 Hyperkalemia; B02.9 Zoster without complications; M19.90 Unspecified osteoarthritis, unspecified site; J44.9 Chronic obstructive pulmonary disease, unspecified; K21.9 Gastro-esophageal reflux disease without esophagitis; I10 Essential (primary) hypertension; Z86.73 Personal history of transient ischemic attack (TIA), and cerebral infarction without residual deficits; Z90.49 Acquired absence of other specified parts of digestive tract; Z90.89 Acquired absence of other organs; Z90.710 Acquired absence of both cervix and uterus; Z90.722 Acquired absence of ovaries, bilateral; Z88.5 Allergy status to narcotic agent; Z88.8 Allergy status to other drugs, medicaments and biological substances
CPT/HCPCS: 36415; 74177; 80053; 81001; 83690; 84484; 85025; 87086; 87186; 93005; 94644; 96365; 96375; 99285; J0696; J3010; J7613; P9612; Q9967; J7030

== ENCOUNTER 2018-06-16 17:33 | Inpatient (IN) | payer MEDICARE ==
[~2018-06-16] VITALS: Ht 162.6 cm; Wt 71.7 kg
[~2018-06-16 17:33] MED LIST changes: +ACYC400T PO; +ASPI81TA50 PO; +CHOL10003 PO; +HYDR-2145 PO; +HYDR-2155 PO; -HYDR-2758 PO; -HYDR25TA9 PO; +MAGN296S9 PO; +SULF1TAB24 PO
--- NOTE | 2018-06-16 17:39 | ED.ADGEN ---
Past History Past Medical History: Arthritis, COPD, CVA, GERD, Hypertension, Stroke, TIA, Other Past Surgical History: Appendectomy, Cholecystectomy, Hysterectomy, Knee Replacement, Oophorectomy, Tonsillectomy Smoking: Non-smoker Alcohol Use: None Drug Use: None Adult General Chief Complaint Chief Complaint ".. I ... don't feel well.... " HPI HPI Patient is a 77 year old female who presents with above hx and complaints of fever and chills. Pt. lives at home with family. Pt. reportedly has developed fevers at home the last couple days. No history of specific ill contacts. No history of travel. Patient is cared for by her family and she follows with Dr. Dempsey. Patient has had a history of TIAs, CVAs, with paraplegia and speech defect. Patient currently tachycardic and complaints of generalized malaise, arthralgia, myalgia. Review of Systems Review of Systems Constitutional: History of fever or chills [] Eyes: Denies change in visual acuity, redness, or eye pain [] HENT: Denies nasal congestion or sore throat [] Respiratory: Denies cough or shortness of breath [] Cardiovascular: No additional information not addressed in HPI [] GI: Denies abdominal pain, nausea, vomiting, bloody stools or diarrhea [] : Denies dysuria or hematuria [] Musculoskeletal: Denies back pain or joint pain [] Integument: Cellulitis legs and rash or skin lesions [] Neurologic: Denies headache, focal weakness or sensory changes [] Endocrine: Denies polyuria or polydipsia [] All other systems were reviewed and found to be within normal limits, except as documented in this note. Family History Family History Noncontributory Current Medications Current Medications Current Medications Medications (Trade) Dose Ordered Sig/Haven Start Time Stop Time Status Last Admin Dose Admin Acetaminophen (Tylenol) 1,000 mg 1X ONCE 06/16/18 18:15 06/16/18 18:16 DC 06/16/18 18:08 1,000 MG Albuterol/ Ipratropium (Duoneb) 3 ml RTQID 06/17/18 08:00 06/18/18 07:59 Ceftriaxone Sodium 1 gm/ Sodium Chloride 50 ml @ 100 mls/hr Q24H 06/17/18 18:00 Ceftriaxone Sodium (Rocephin) 1 gm STK-MED ONCE 06/16/18 18:03 06/16/18 18:04 DC Enoxaparin Sodium (Lovenox 80mg Syringe) 70 mg BID 06/17/18 09:00 Ibuprofen (Motrin) 400 mg 1X ONCE 06/16/18 23:00 06/16/18 23:01 DC 06/16/18 22:49 400 MG Info (Anti-Coagulation Monitoring By Pharmacy) 1 each PRN DAILY PRN 06/16/18 21:30 Info (Do NOT chart on this entry -- for MONITORING) 1 each PRN DAILY PRN 06/16/18 21:15 06/18/18 21:14 Iohexol (Omnipaque 300 Mg/ml) 75 ml 1X ONCE 06/16/18 21:30 06/16/18 21:31 DC 06/16/18 21:58 75 ML Lactated Ringer's 1,000 ml @ 160 mls/hr 1X ONCE 06/16/18 22:00 06/17/18 04:14 Magnesium Sulfate 50 ml @ 25 mls/hr 1X ONCE 06/16/18 21:30 06/16/18 23:29 06/16/18 21:19 25 MLS/HR Morphine Sulfate (Morphine 10mg Syringe) 10 mg 1X ONCE 06/16/18 20:30 06/16/18 20:31 DC 06/16/18 20:29 10 MG Ondansetron HCl (Zofran) 4 mg PRN Q4HRS PRN 06/16/18 21:15 06/17/18 21:14 Sodium Chloride 50 ml @ As Directed STK-MED ONCE 06/16/18 18:03 06/16/18 18:04 DC Allergies Allergies Allergies Coded Allergies Type Severity Reaction Last Updated Verified codeine Allergy Intermediate 05/07/18 Yes gluten Allergy Intermediate 05/07/18 No Physical Exam Physical Exam Constitutional: Moderately acute distress, ill in appearance. [] HENT: Normocephalic, atraumatic, bilateral external ears normal, oropharynx dry , no oral exudates, nose normal. [] Eyes: PERRLA, EOMI, conjunctiva normal, no discharge. [] Neck: decreased range of motion, no tenderness, , no stridor. [] Cardiovascular:Tachycardia Heart rate regular rhythm, no murmur [] Lungs & Thorax: Bilateral breath sounds equal apex with scattered wheezes on auscultation []some basilar crackles Abdomen: Bowel sounds normal, soft, mild tenderness, no masses, no pulsatile masses. [] [place]. Distended. Old surgery scars Skin: Warm, dry, has erythema, cellulitic rash and upper thighs > Rt. leg. Back: No tenderness, no CVA tenderness. [] Extremities: No tenderness, no cyanosis, no clubbing, ROM intact, no edema. [] Arthritic changes. Neurologic: Alert to questions, speech defect, decreased motor function,and sensory function, no new focal defects. Noted intentional tremor. Pt. family states this is pt. baseline. Psychologic: Affect anxious, , mood depressed Current Patient Data Vital Signs Vital Signs Date Time Temp Pulse Resp B/P (MAP) Pulse Ox O2 Delivery O2 Flow Rate FiO2 06/16/18 22:09 110 23 112/68 (83) 93 Room Air 06/16/18 17:33 100.0 Lab Results Laboratory Tests Test 06/16/18 17:00 06/16/18 17:45 06/16/18 18:20 06/16/18 18:31 Influenza Type A (Rapid) Negative (NEGATIVE) Influenza Type B (Rapid) Negative (NEGATIVE) White Blood Count 12.7 x10^3/uL (4.0-11.0) H Red Blood Count 4.55 x10^6/uL (3.50-5.40) Hemoglobin 11.4 g/dL (12.0-15.5) L Hematocrit 37.0 % (36.0-47.0) Mean Corpuscular Volume 81 fL (79-100) Mean Corpuscular Hemoglobin 25 pg (25-35) Mean Corpuscular Hemoglobin Concent 31 g/dL (31-37) Red Cell Distribution Width 16.5 % (11.5-14.5) H Platelet Count 244 x10^3/uL (140-400) Neutrophils (%) (Auto) 89 % (31-73) H Lymphocytes (%) (Auto) 5 % (24-48) L Monocytes (%) (Auto) 5 % (0-9) Eosinophils (%) (Auto) 1 % (0-3) Basophils (%) (Auto) 0 % (0-3) Neutrophils # (Auto) 11.2 x10^3uL (1.8-7.7) H Lymphocytes # (Auto) 0.6 x10^3/uL (1.0-4.8) L Monocytes # (Auto) 0.6 x10^3/uL (0.0-1.1) Eosinophils # (Auto) 0.2 x10^3/uL (0.0-0.7) Basophils # (Auto) 0.0 x10^3/uL (0.0-0.2) Prothrombin Time 10.5 SEC (9.4-11.4) Prothrombin Time INR 1.1 (0.9-1.1) PTT 24 SEC (23-33) D-Dimer (Jolly) 3.94 mg/L (0.00-0.50) H Sodium Level 142 mmol/L (136-145) Potassium Level 3.5 mmol/L (3.5-5.1) Chloride Level 106 mmol/L (98-107) Carbon Dioxide Level 26 mmol/L (21-32) Anion Gap 10 (6-14) Blood Urea Nitrogen 12 mg/dL (7-20) Creatinine 0.7 mg/dL (0.6-1.0) Estimated GFR (Cockcroft-Gault) 80.9 Glucose Level 103 mg/dL (70-99) H Lactic Acid Level 1.8 mmol/L (0.4-2.0) Calcium Level 8.3 mg/dL (8.5-10.1) L Magnesium Level 1.4 mg/dL (1.8-2.4) L Total Bilirubin 0.2 mg/dL (0.2-1.0) Direct Bilirubin 0.1 mg/dL (0.0-0.2) Aspartate Amino Transferase (AST) 25 U/L (15-37) Alanine Aminotransferase (ALT) 26 U/L (14-59) Alkaline Phosphatase 205 U/L (46-116) H Creatine Kinase 59 U/L (26-192) Troponin I Quantitative < 0.017 ng/mL (0-0.055) LH-Pic-V-Type Natriuretic Peptide 353 pg/mL (0-449) Total Protein 6.3 g/dL (6.4-8.2) L Albumin 2.5 g/dL (3.4-5.0) L Lipase 39 U/L (73-393) L Urine Collection Type Unknown Urine Color Yellow Urine Clarity Clear Urine pH 5.5 Urine Specific [place] 1.015 Urine Protein Neg (NEG-TRACE) Urine Glucose (UA) Neg mg/dL (NEG) Urine Ketones (Stick) Neg mg/dL (NEG) Urine Blood Trace (NEG) Urine Nitrite Neg (NEG) Urine Bilirubin Neg (NEG) Urine Urobilinogen Dipstick 0.2 mg/dL (0.2 mg/dL) Urine Leukocyte Esterase Neg (NEG) Urine RBC Occ /HPF (0-2) Urine WBC Occ /HPF (0-4) Urine Squamous Epithelial Cells Occ /LPF Urine Bacteria 0 /HPF (0-FEW) Urine Mucus Slight /LPF Test 06/16/18 19:10 06/16/18 21:35 Group A Streptococcus Rapid Negative (NEGATIVE) Lactic Acid Level 1.2 mmol/L (0.4-2.0) EKG EKG My interpretation EKG shows a sinus tachycardia 102 bpm. Does have a fax deviation and a bifascicular block. Strain pattern. Artifact from tremor.[] Radiology/Procedures Radiology/Procedures My interpretation chest x-ray shows some patchy atelectasis and borderline cardiomegaly. Has a tortuous aorta. Degenerative joint changes. Some blunting of left [place] . .phrenic angle[]. CT of head shows no acute bleed shift mass or fracture. There is cerebral volume loss and chronic small vessel disease. Has what appears to be an old left cerebellar infarct . Cervical has degenerative joint changes but no large fracture dislocation. Course & Med Decision Making Course & Med Decision Making Pertinent Labs and Imaging studies reviewed. (See chart for details) Pt. Admitted to Dr. Girard- for further evaluation and tx. Pt.is DNR. No Intubation, No Shocks, No CPR- will accept medications. Ultrasound of legs pending at time of admission. [] Final Impression Final Impression 1. Fever[] & Chills 2. Leukocytosis 12.7 3. Anemia 11.4 4. Hypomagnesium 1.4 5. Elevated D-dimer 3.94 6. Malnutrition 2.5 Alb 7. COPD Exacerbation 8. Cellulitis 9. DNR- No CPR, No Intubation, No Shocks- Will take meds. 10. Constipation Dragon Disclaimer Dragon Disclaimer This electronic medical record was generated, in whole or in part, using a voice recognition dictation system. GENET PATEL MD Jun 16, 2018 17:39
[2018-06-16] MEDS ORDERED: IV RINGERS SOLUTION,LACTATED 1,000 ML IV SCH (18:00)
[2018-06-16 18:01] LABS: BASO % 0 % (0-3); EOS # 0.2 x10^3/uL (0.0-0.7); EOS % 1 % (0-3); HEMOGLOBIN 11.4 g/dL (12.0-15.5); LYMPH # 0.6 x10^3/uL (1.0-4.8); LYMPH % 5 % (24-48); MEAN CORPUSCULAR HEMOGLOBIN 25 pg (25-35); MEAN CORPUSCULAR HGB CONC 31 g/dL (31-37); MEAN CORPUSCULAR VOLUME 81 fL (79-100); MONO # 0.6 x10^3/uL (0.0-1.1); MONO % 5 % (0-9); NEUT # 11.2 x10^3uL (1.8-7.7); NEUT % 89 % (31-73); PLATELET COUNT 244 x10^3/uL (140-400); RED BLOOD COUNT 4.55 x10^6/uL (3.50-5.40); RED CELL DISTRIBUTION WIDTH 16.5 % (11.5-14.5); WHITE BLOOD COUNT 12.7 x10^3/uL (4.0-11.0)
[2018-06-16] MEDS ORDERED: IV NORMAL SALINE 50ML 50 ML ONE (18:03)
[2018-06-16] MEDS ORDERED: cefTRIAXone SODIUM 1 GM VIAL IV ONE (18:03)
[2018-06-16 18:07] LABS: INFLUENZA A PATIENT NEGATIVE (NEGATIVE); INFLUENZA B PATIENT NEGATIVE (NEGATIVE)
--- NOTE | 2018-06-16 18:14 | EKG ---
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
[2018-06-16] MEDS ORDERED: ACETAMINOPHEN 500 MG TABLET PO ONE (18:15)
[2018-06-16 18:51] LABS: BILIRUBIN,URINE NEG (NEG); CLARITY,URINE CLEAR; COLOR,URINE YELLOW; GLUCOSE,URINE NEG (NEG); NITRITE,URINE NEG (NEG)
[2018-06-16 18:52] LABS: BACTERIA,URINE 0 /HPF (0-FEW); RBC,URINE OCC /HPF (0-2); SQUAMOUS EPITHELIAL CELL,UR OCC /LPF; UROBILINOGEN,URINE 0.2 mg/dL (0.2 mg/dL); WBC,URINE OCC /HPF (0-4)
[2018-06-16 19:08] LABS: ALBUMIN 2.5 g/dL (3.4-5.0); CALCIUM 8.3 mg/dL (8.5-10.1); CREATININE 0.7 mg/dL (0.6-1.0); DIRECT BILIRUBIN 0.1 mg/dL (0.0-0.2); GFR 80.9; MAGNESIUM 1.4 mg/dL (1.8-2.4); POTASSIUM 3.5 mmol/L (3.5-5.1); TOTAL BILIRUBIN 0.2 mg/dL (0.2-1.0); TOTAL PROTEIN 6.3 g/dL (6.4-8.2)
[2018-06-16] MEDS ORDERED: MORPHINE SULFATE 10 MG/ML SYRINGE. SQ ONE (20:30)
[2018-06-16] MEDS ORDERED: ONDANSETRON PF 4 MG/2 ML VIAL. IV PRN (21:15)
[2018-06-16] MEDS ORDERED: CONTRAST GIVEN MC PRN (21:15)
[2018-06-16] MEDS ORDERED: ANTI-COAG MONITOR BY PHARMACY. MC PRN (21:30)
[2018-06-16] MEDS ORDERED: MAGNESIUM SULFATE 2GM 50 ML IV ONE (21:30)
[2018-06-16] MEDS ORDERED: ENOXAPARIN ** NOTE DOSE ** SYRINGE SQ ONE (21:30)
[2018-06-16] MEDS ORDERED: IOHEXOL 300 MG/ML 75 ML VIAL. IV ONE (21:30)
[2018-06-16] MEDS ORDERED: IV RINGERS SOLUTION,LACTATED 1,000 ML IV ONE ×2 (22:00)
--- NOTE | 2018-06-16 22:56 | RAD ---
CT HEAD AND CERVICAL SPINE WO Date: 06/16/2018 9:26 PM Clinical Indication: Altered mental status, head and neck pain Comparison: CT head dated 01/09/2018. Technique: 5 mm axial tomographic images were obtained of the head without contrast. These were viewed on brain and bone windows. Noncontrast CT of the cervical spine was performed. Sagittal and coronal reformats were performed and evaluated. HEAD FINDINGS: Patient motion. Mild generalized cerebral and cerebellar volume loss. Mild nonspecific periventricular hypoattenuation, most commonly seen with chronic small vessel ischemic disease. Remote left cerebellar infarct. No intra- or extra-axial mass or fluid collection. No acute hemorrhage. The ventricles are normal in size, shape, and morphology. The henry-white matter junction is normal. The basilar cisterns are patent. The visualized paranasal sinuses are normal. The visualized portions of the orbits and globes are normal. The mastoid air cells are clear. No aggressive osseous lesion or fracture. CERVICAL SPINE FINDINGS: Patient motion. Exaggeration of the normal cervical lordosis. No displaced fracture. No aggressive lytic or blastic osseous lesions. Moderate multilevel degenerative disc space height loss. Multilevel at least mild spinal canal stenosis secondary to disc protrusions and marginal osteophytes. Multilevel at least moderate neuroforaminal narrowing secondary to uncovertebral arthrosis. Multilevel moderate facet arthrosis. Multilevel trace listhesis. No cervical lymphadenopathy. The visualized aerodigestive tract is normal. The visualized portions of the lungs are clear. IMPRESSION: Patient motion. 1. No acute intracranial process. Of note, MRI is more sensitive for acute infarction less than 24 hours in age. 2. Mild cerebral volume loss. Mild chronic small vessel ischemic disease. Remote left cerebellar infarct. 3. No acute fracture or dislocation. Patient motion limits evaluation for a nondisplaced fracture. 4. Mild degenerative cervical spondylosis. PQRS Compliance Statement: One or more of the following individualized dose reduction techniques were utilized for this examination: 1. Automated exposure control 2. Adjustment of the mA and/or kV according to patient size 3. Use of iterative reconstruction technique Electronically signed by: Александр Bethea MD (06/16/2018 10:53 PM) [facility]
[2018-06-16] MEDS ORDERED: IBUPROFEN 400 MG TABLET. PO ONE (23:00)
--- NOTE | 2018-06-16 23:25 | RAD ---
CT CHEST ABDOMEN AND PELVIS WITH IV CONTRAST History: ELEVATED D-DIMER, SHORT OF AIR, ABDOMINAL PAIN. Comparison: CT abdomen and pelvis dated 05/07/2018, CT PE study dated 05/09/2017. Technique: Helical CT of the chest abdomen and pelvis was performed after the administration of intravenous contrast. Chest images were obtained following PE protocol. Sagittal and coronal chest MIP reconstructions were obtained. Sagittal and coronal abdomen and pelvis reconstructions were obtained. 75 mL of Isovue-370. Chest Findings: Limited evaluation of the distal pulmonary arterial system due to suboptimal distal contrast opacification. No evidence of central, lobar, or segmental pulmonary embolism. The thyroid is symmetric. There is no significant axillary, mediastinal, or hilar adenopathy. Unchanged prominent lymph node adjacent to the left common carotid artery. The tortuous thoracic aorta diameter is normal. Unchanged mild cardiomegaly. There is no pericardial effusion. No focal consolidation. No suspicious pulmonary nodule or mass. No pleural effusion or pneumothorax. The central airways are patent. Abdomen Findings: Patient motion. Cholecystectomy. Redemonstration of dilation of the common bile duct measuring up to 1.7 cm. Fatty atrophy of the pancreas. The liver, spleen, and bilateral adrenal glands are normal. Bilateral kidneys enhance symmetrically. There is no focal renal mass. There is no hydronephrosis. The visualized loops of small bowel are normal. Moderate colonic stool. The visualized loops of large bowel are otherwise normal. There is no evidence of bowel obstruction. There is no free fluid. There is no mesenteric or retroperitoneal adenopathy. Moderate atherosclerosis of the abdominal aorta and its branches. IVC filter. Pelvis findings: Urinary bladder is normal. No pelvic free fluid. There is no significant pelvic or inguinal adenopathy. There is no acute bony abnormality. Unchanged L2 vertebral body height loss. Suggestion of diffuse osteopenia. Mild multilevel degenerative changes of the visualized spine. Mild anasarca. IMPRESSION: Patient motion. 1. Limited evaluation of the distal pulmonary arterial system due to suboptimal distal contrast opacification. No evidence of central, lobar, or segmental pulmonary embolism. 2. Moderate colonic stool. 3. Redemonstration of dilation of the common bile duct measuring up to 1.7 cm. PQRS Compliance Statement: One or more of the following individualized dose reduction techniques were utilized for this examination: 1. Automated exposure control 2. Adjustment of the mA and/or kV according to patient size 3. Use of iterative reconstruction technique Electronically signed by: Александр Bethea MD (06/16/2018 11:22 PM) [facility] [place]
[2018-06-16 23:57] VITALS: BP 100/62
[2018-06-17] MEDS ORDERED: IV NORMAL SALINE 1,000ML 1,000 ML IV SCH (01:00)
[2018-06-17 01:51] VITALS: BP 98/59
[2018-06-17] MEDS: IV RINGERS SOLUTION,LACTATED 1,000 ML IV SCH ×4 (02:33→22:15)
--- NOTE | 2018-06-17 05:10 | RAD ---
AP portable chest radiograph 06/16/2018 Clinical History: Fever and weakness. An AP erect portable digital radiograph of the chest was obtained. Comparison study is dated 01/09/2018. The cardiac silhouette is mildly enlarged. The thoracic aorta is tortuous. Atherosclerotic calcification of the thoracic aorta is seen. No acute pulmonary infiltrate is noted. No pneumothorax or pleural effusion is seen. The osseous structures are unchanged. Impression: No acute abnormality is seen. Electronically signed by: Waldemar Lane MD (06/17/2018 5:06 AM) [facility]
[2018-06-17] MEDS: IPRATRPIUM/ALBUTEROL 0.5/2.5MG 3 ML NEBU. NEB SCH ×4 (05:16→20:16)
[2018-06-17] MEDS: oxyCODONE/APAP 10/325 1 TAB TABLET PO PRN ×2 (06:31→09:00)
[2018-06-17 06:44] VITALS: BP 110/68
[2018-06-17] MEDS ORDERED: GABA300C8 PO (07:43)
[2018-06-17] MEDS ORDERED: SUCR1ORA11 PO (07:43)
[2018-06-17] MEDS ORDERED: CITA10TA8 PO (07:43)
[2018-06-17] MEDS: ENOXAPARIN ** NOTE DOSE ** SYRINGE SQ SCH ×2 (09:03→21:40)
[2018-06-17 11:22] VITALS: BP 113/67
[2018-06-17] MEDS ORDERED: MAGNESIUM CITRATE PO SCH (11:45)
[2018-06-17] MEDS ORDERED: VANCOMYCIN 1.75 GM in IV NORMAL SALINE 500ML 500 ML IV ONE (12:30)
--- NOTE | 2018-06-17 12:31 | HP ---
ADMIT DATE: 06/16/2018 HISTORY OF PRESENT ILLNESS: The patient is a 77-year-old female patient, who was brought to the Emergency Room with a complaint of fever or chills. She lives at home with her . She apparently developed fever for the last few days. There is no history of any specific ill contact. No history of travel. The patient is cared for by her and she follows with Dr. Dempsey. 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 By that time she arrived to the Emergency Room. Apparently, she was afebrile, by the time she arrived to the Emergency Room her temperature was 100. Her heart rate was slightly high at 101. She was extensively investigated in the Emergency Room. She was found to have mild leukocytosis with a white cell count 12,700; however, most of the other lab works are within acceptable range. Her influenza A and B were negative. Group A Streptococcus rapid test was negative. She was found to have D-dimer and she had a CT angio as well as CT scan of the abdomen and pelvis, together with the chest x-ray, which was also unremarkable and was admitted for further evaluation. The patient, herself is very confused today and does not really give any useful information; however, when I saw her today she has definitely markedly swollen, erythematous right lower extremity. PAST MEDICAL HISTORY: Significant for left middle cerebral artery territory infarct with right-sided hemiplegia, occasional aphasia, hypertension, degenerative joint disease, depression, generalized osteoarthritis. She does have a history of dysphagia, status post PEG tube placement, hyperlipidemia, and chronic obstructive pulmonary disease. PAST SURGICAL HISTORY: Significant for appendectomy, cholecystectomy, tonsillectomy, total abdominal hysterectomy, bilateral salpingo-oophorectomy, history of percutaneous endoscopic gastrostomy tube placement, and right total knee arthroplasty. ALLERGIES: She is allergic to CODEINE and GLUTEN. She is also known to have celiac disease. MEDICATIONS: She is currently on following medications: She is on sulfamethoxazole/trimethoprim 1 tablet twice a day, acyclovir 400 mg 3 times a day, amlodipine besylate 5 mg once a day, lisinopril 40 mg once a day, aspirin 81 mg once a day, oxycodone/APAP 7.5/325 one tablet 4 times a day as needed, gabapentin 300 mg 4 times a day, citalopram hydrobromide 10 mg once a day, potassium chloride 10 mEq every other day, magnesium citrate 1 bottle once a day as needed for constipation, sucralfate 1 gram in 10 mL oral suspension twice a day and cholecalciferol vitamin D3 1000 International Units once a day. FAMILY HISTORY: Noncontributory. SOCIAL HISTORY: She is and lives with her . She never smoked, does not drink alcohol. 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 REVIEW OF SYSTEMS: Unobtainable. The patient is very confused today. PHYSICAL EXAMINATION: GENERAL: On examining her, she was resting slightly propped up in bed, in no apparent respiratory distress. She was pale, but no jaundice, cyanosis, or thyromegaly. No jugular venous distension. She does have marked swollen right lower extremity that is erythematous and tender to touch. VITAL SIGNS: Her heart rate was 101, blood pressure was 153/83, temperature was 100, respiratory rate 22, and oxygen saturation was 96% on room air. HEAD, EYES, EARS, NOSE AND THROAT: Showed normocephalic, atraumatic. NECK: Supple. No lymphadenopathy, no thyromegaly. HEART: Showed normal first and second heart sounds with no gallop, rub or murmur. CHEST: Clear to auscultation. No crepitation or rhonchi. ABDOMEN: Distended, soft, nontender. No guarding or rigidity. No organomegaly. All hernial orifices intact. Bowel sounds normal. NEUROLOGIC: She is awake, alert, but very confused and disoriented; however, all cranial nerves are intact. She has right-sided hemiplegia with fixed flexion contraction in particular right upper extremity. Right lower extremity is markedly swollen, erythematous and tender to touch. LABORATORY DATA: Her lab work on arrival to the Emergency Room showed a white cell count 12,700, hemoglobin 11.4, hematocrit 37, MCV 81 and platelet count of 244,000. Her chemistry showed serum sodium of 142, potassium 3.5, chloride 106, bicarbonate 26, anion gap of 10, BUN 12, creatinine 0.7, estimated GFR was 81 mL per minute. Her glucose was 103. Lactic acid was 1.8, calcium was 8.3, magnesium was 1.4. Total bilirubin, AST, ALT were normal. Alkaline phosphatase slightly elevated. Her CK was 59. Beta natriuretic peptide 353. Total protein was 6.3, albumin was 2.5. Lipase was normal and TSH was 1.106. Her prothrombin time was 10.5, INR 1.1, aPTT was 24 and D-dimer was high at 3.94 mg/dL. Urinalysis was essentially unremarkable. Her influenza A and B were negative and group A streptococcus rapid strep test was negative. She has multiple imaging studies including a chest x-ray, which showed no acute abnormalities seen. She had chest CT angiogram, which basically showed that there is limited evaluation of the distal pulmonary arterial system due to suboptimal distal contrast opacification, no evidence of central lobar or segmental pulmonary emboli. The patient has moderate colonic stool and redemonstration of dilation of the common bile duct measuring up to 1.[address] scan of the head and cervical spine showed no acute intracranial pathology, mild cerebral volume loss, mild chronic small vessel ischemic disease, remote left cerebellar infarct, no acute fracture or dislocation. The patient motion limits evaluation for a nondisplaced fracture. Basically, the patient was admitted without right lower extremity cellulitis. We will start her on IV vancomycin and Zosyn. I also did venous Doppler ultrasound, although she already has an inferior vena cava filter in place. We will continue for the time being with Lovenox and once we have the result of the ultrasound, we can discontinue Lovenox if there is no evidence of deep vein thrombosis. OWEN MAGANA MD DR: CALLI/esequiel JOB#: [id number] / [id number]
[2018-06-17] MEDS: PIPERACILLIN/TAZOBACTAM 3.375 GM in IV NORMAL SALINE 50ML 50 ML IV SCH ×2 (13:09→17:28)
[2018-06-17] MEDS: ACYCLOVIR 200 MG CAPSULE PO SCH ×2 (13:12→21:39)
[2018-06-17] MEDS: oxyCODONE/APAP 7.5/325 1 TAB TABLET PO PRN ×2 (13:12→18:07)
[2018-06-17] MEDS: GABAPENTIN 300 MG CAPSULE. PO SCH ×3 (13:12→21:39)
[2018-06-17] MEDS: VANCOMYCIN PER PHARMACY MC PRN (14:24)
[2018-06-17 15:28] VITALS: BP 102/62
[2018-06-17 19:20] VITALS: BP 98/61
[2018-06-17] MEDS ORDERED: SMZ/TMP 800/160MG TABLET. PO SCH (21:00)
[2018-06-17] MEDS: SUCRALFATE 1 GM/10 ML ORAL.SUSP. PO SCH (21:39)
[2018-06-17] MEDS: ONDANSETRON PF 4 MG/2 ML VIAL. IV PRN (22:14)
[2018-06-17 23:08] VITALS: BP 103/58
[2018-06-18] MEDS: PIPERACILLIN/TAZOBACTAM 3.375 GM in IV NORMAL SALINE 50ML 50 ML IV SCH ×4 (00:23→18:09)
[2018-06-18] MEDS: oxyCODONE/APAP 7.5/325 1 TAB TABLET PO PRN ×3 (05:04→18:06)
[2018-06-18 05:55] VITALS: BP 119/63
[2018-06-18] MEDS: IV RINGERS SOLUTION,LACTATED 1,000 ML IV SCH ×4 (06:00→23:03)
[2018-06-18 06:34] LABS: HEMATOCRIT 28.5 % (36.0-47.0); RED BLOOD COUNT 3.52 x10^6/uL (3.50-5.40); RED CELL DISTRIBUTION WIDTH 16.3 % (11.5-14.5)
[2018-06-18 06:46] LABS: ALBUMIN 1.7 g/dL (3.4-5.0); ALBUMIN/GLOBULIN RATIO 0.6 (1.0-1.7); CALCIUM 7.7 mg/dL (8.5-10.1); CREATININE 0.7 mg/dL (0.6-1.0); GFR 80.9; POTASSIUM 3.7 mmol/L (3.5-5.1); TOTAL BILIRUBIN 0.2 mg/dL (0.2-1.0); TOTAL PROTEIN 4.4 g/dL (6.4-8.2)
[2018-06-18] MEDS ORDERED: DOCUSATE SODIUM 100 MG CAPSULE PO SCH (09:00)
[2018-06-18] MEDS: CITALOPRAM 10 MG TABLET. PO SCH (09:15)
[2018-06-18] MEDS: amLODIPine BESYLATE 5 MG TABLET PO SCH (09:15)
[2018-06-18] MEDS: ASPIRIN ENTERIC COATED 81 MG TABLET.DR. PO SCH (09:16)
[2018-06-18] MEDS: GABAPENTIN 300 MG CAPSULE. PO SCH ×4 (09:16→20:58)
[2018-06-18] MEDS: CHOLECALCIFEROL (VITAMIN D3) 1,000 UNIT TABLET PO SCH (09:16)
[2018-06-18] MEDS: POTASSIUM CHLORIDE 10 MEQ TABLET.ER. PO SCH (09:16)
[2018-06-18] MEDS: LISINOPRIL 20 MG TABLET PO SCH (09:16)
[2018-06-18] MEDS: ENOXAPARIN ** NOTE DOSE ** SYRINGE SQ SCH ×2 (09:17→20:59)
[2018-06-18] MEDS: ACYCLOVIR 200 MG CAPSULE PO SCH ×3 (09:17→20:58)
[2018-06-18] MEDS: IPRATRPIUM/ALBUTEROL 0.5/2.5MG 3 ML NEBU. NEB SCH ×4 (09:30→20:45)
[2018-06-18 11:22] VITALS: BP 143/75
[2018-06-18] MEDS: SUCRALFATE 1 GM/10 ML ORAL.SUSP. PO SCH ×2 (12:01→20:57)
[2018-06-18] MEDS: VANCOMYCIN 1 GM in IV NORMAL SALINE 250ML 250 ML IV SCH (13:51)
[2018-06-18 14:37] VITALS: BP 113/73
[2018-06-18] MEDS: ONDANSETRON PF 4 MG/2 ML VIAL. IV PRN (15:47)
--- NOTE | 2018-06-18 16:40 | RAD ---
EXAM: Right lower extremity venous Doppler sonogram. HISTORY: Pain and swelling. TECHNIQUE: Lott scale and color Doppler sonographic evaluation of the right lower extremity veins with spectral waveform analysis was performed. FINDINGS: There is normal color flow, normal compressibility and there are normal spectral waveforms in the common femoral, superficial femoral, popliteal, posterior tibial and greater saphenous veins. IMPRESSION: No Doppler evidence of lower extremity deep venous thrombosis. Electronically signed by: Luz Tarango MD (06/18/2018 4:36 PM) [facility]
[2018-06-18] MEDS ORDERED: DOCUSATE SODIUM 100 MG CAPSULE PO PRN (18:45)
[2018-06-18 19:45] VITALS: BP 117/75
[2018-06-18] MEDS: LACTOBACILLUS RHAMNOSUS GG 1 CAPSULE. PO SCH (20:58)
[2018-06-18 22:53] VITALS: BP 125/85
[2018-06-19] MEDS: oxyCODONE/APAP 7.5/325 1 TAB TABLET PO PRN ×2 (00:36→07:57)
[2018-06-19] MEDS: PIPERACILLIN/TAZOBACTAM 3.375 GM in IV NORMAL SALINE 50ML 50 ML IV SCH ×5 (00:37→23:57)
--- NOTE | 2018-06-19 03:54 | PN ---
DATE: 06/18/2018 SUBJECTIVE: The patient is sitting up in bed, complaining of severe pain in her right lower extremity. She continued to be somewhat confused; however, she is afebrile and erythema of her right lower extremity is much less, although the swelling continues. PHYSICAL EXAMINATION: GENERAL: When I examined her, she was clearly in pain, pale, but no jaundice, cyanosis, or thyromegaly. No jugular venous distension. No limb edema. VITAL SIGNS: Her heart rate was 87, blood pressure was 119/63, temperature was 98.5, respiratory rate was 22, and oxygen saturation was 95% on room air. HEAD, EYES, EARS, NOSE, AND THROAT: Showed normocephalic and atraumatic. NECK: Supple. HEART: Showed normal first and second heart sounds with no gallop, rub, or murmur. CHEST: Clear to auscultation. No crepitation or rhonchi. ABDOMEN: Distended, soft, nontender. NEUROLOGIC: She is awake, alert, and confused. All her cranial nerves intact. She has right-sided hemiplegia with fixed flexion contraction of her right upper extremity. Examination of both lower extremities showed that right lower extremity is more swollen and erythematous, although erythema is much less than yesterday. Her intake over the last 24 hours was 3892, no output was recorded. LABORATORY DATA: Her lab work this morning showed a white cell count is 12,000, hemoglobin was 9, hematocrit was 28, MCV 81, and platelet count 207,000. Her chemistry showed a serum sodium 139, potassium 3.7, chloride 103, bicarbonate 29, anion gap of 7, BUN 14, creatinine 0.7, estimated GFR was 81 mL per minute. Her glucose was 82, calcium was 7.7. Total bilirubin, AST, ALT were normal. Alkaline phosphatase was slightly elevated. Her total protein was 4.4, albumin was 1.7. Her prothrombin time was 10.5, INR 1.1, aPTT was 24, and D-dimer was 3.94. Urinalysis was unremarkable and influenza A and B were negative. ASSESSMENT AND PLAN: Right lower extremity cellulitis with marked erythema and leukocytosis, for which we started her on IV Zosyn and vancomycin. Other medical problems include left middle cerebral artery territory infarct with right-sided hemiplegia, aphasia, hypertension, depression, generalized osteoarthritis. She did have a history of dysphagia for which she has a percutaneous endoscopic gastrostomy tube; however, her dysphagia, resolved. She is also known to have chronic obstructive pulmonary disease. Plan is to continue with IV antibiotics for now, continue with pain management. Await the result of blood culture and sensitivity. OWEN MAGANA MD DR: CALLI/esequiel JOB#: [id number] / [id number]
[2018-06-19 05:00] VITALS: BP 139/81
[2018-06-19] MEDS: IPRATRPIUM/ALBUTEROL 0.5/2.5MG 3 ML NEBU. NEB SCH ×4 (05:39→21:02)
[2018-06-19] MEDS: IV RINGERS SOLUTION,LACTATED 1,000 ML IV SCH ×4 (05:54→23:56)
[2018-06-19] MEDS: CITALOPRAM 10 MG TABLET. PO SCH (07:56)
[2018-06-19] MEDS: LACTOBACILLUS RHAMNOSUS GG 1 CAPSULE. PO SCH ×2 (07:57→21:16)
[2018-06-19] MEDS: ASPIRIN ENTERIC COATED 81 MG TABLET.DR. PO SCH (07:57)
[2018-06-19] MEDS: CHOLECALCIFEROL (VITAMIN D3) 1,000 UNIT TABLET PO SCH (07:57)
[2018-06-19] MEDS: ACYCLOVIR 200 MG CAPSULE PO SCH ×3 (07:58→21:17)
[2018-06-19] MEDS: LISINOPRIL 20 MG TABLET PO SCH (07:59)
[2018-06-19] MEDS: ENOXAPARIN ** NOTE DOSE ** SYRINGE SQ SCH ×2 (08:00→21:17)
[2018-06-19] MEDS: GABAPENTIN 300 MG CAPSULE. PO SCH ×4 (08:00→21:17)
[2018-06-19] MEDS: amLODIPine BESYLATE 5 MG TABLET PO SCH (08:01)
[2018-06-19] MEDS: SUCRALFATE 1 GM/10 ML ORAL.SUSP. PO SCH ×2 (08:01→21:16)
[2018-06-19 10:47] VITALS: BP 109/70
[2018-06-19] MEDS: oxyCODONE/APAP 10/325 1 TAB TABLET PO PRN ×3 (12:23→22:06)
[2018-06-19 12:45] LABS: VANC TR 7.2 mcg/mL (10.0-20.0)
[2018-06-19] MEDS: VANCOMYCIN PER PHARMACY MC PRN (13:45)
[2018-06-19] MEDS: VANCOMYCIN 1 GM in IV NORMAL SALINE 250ML 250 ML IV SCH (13:51)
[2018-06-19 14:48] VITALS: BP 100/62
[2018-06-19 20:43] VITALS: BP 108/70
[2018-06-19 22:52] VITALS: BP 114/73
--- NOTE | 2018-06-19 23:24 | PN ---
DATE: 06/19/2018 SUBJECTIVE: The patient is resting slightly propped up in bed, sleeping comfortably, in no apparent distress. She continued to be extremely confused, but clinically she seemed to have the pain in right lower extremity, much improved. Her erythema has largely subsided. Her venous Doppler ultrasound was negative for DVT, seemed to have almost right foot drop and the patient is unable to bend her artificial right knee. PHYSICAL EXAMINATION: GENERAL: When I examined her, she was pale, no jaundice, cyanosis or thyromegaly. No jugular venous distention. No limb edema. VITAL SIGNS: Her heart rate was 69, blood pressure was 109/70, temperature was 97.6, respiratory rate was 16 and oxygen saturation was 99% on 2 liters of oxygen. HEAD, EYES, EARS, NOSE AND THROAT: Normocephalic, atraumatic. NECK: Supple. HEART: Showed normal first and second sounds. No gallop, rub or murmur. CHEST: Clear to auscultation. No crepitation or rhonchi. ABDOMEN: Distended, soft, nontender. NEUROLOGIC: She is definitely more confused than usual; however, all the cranial nerves intact. She has right-sided hemiplegia with fixed flexion contraction of the right upper extremity. Her intake over the last 24 hours was 3600, no output recorded. LABORATORY DATA: Her most recent lab work available showed her serum sodium 139, potassium 3.7, chloride 103, bicarbonate 29, anion gap of 7, BUN 14, creatinine 0.7, estimated GFR was 81 mL per minute. Her glucose was 82, calcium was 7.7. Her white cell count was 12,000, hemoglobin 9, hematocrit 28, MCV 81 and platelet count of 207,000. ASSESSMENT: 1. Altered mental status, multifactorial. The patient continues to be definitely confused. 2. Right lower extremity cellulitis with marked erythema and leukocytosis, improving. Her erythema has largely subsided, although the right lower extremity still swollen. 3. Left middle cerebral artery territory infarct with right-sided hemiplegia, aphasia. 4. Hypertension. 5. Depression. 6. Generalized osteoarthritis and patient did have a history of dysphagia, and she used to have gastrostomy tube that has been removed. She has also history of chronic obstructive pulmonary disease. PLAN: My plan is to continue with IV antibiotic. Continue with pain management. We increased her Percocet to 10/325 one tablet every 4 hours as needed. Her blood cultures are still negative. I will consult physical and occupational therapy to work with the patient as her stated that she is able to walk with a walker at home. OWEN MAGANA MD DR: CALLI/esequiel JOB#: [id number] / [id number]
[2018-06-19] MEDS: ONDANSETRON PF 4 MG/2 ML VIAL. IV PRN (23:54)
[2018-06-20] MEDS: VANCOMYCIN 1 GM in IV NORMAL SALINE 250ML 250 ML IV SCH ×2 (01:06→12:28)
[2018-06-20] MEDS: oxyCODONE ER 10 MG TAB.ER.12H PO SCH ×2 (01:09→08:36)
[2018-06-20] MEDS: IV RINGERS SOLUTION,LACTATED 1,000 ML IV SCH ×2 (04:19→12:32)
[2018-06-20] MEDS: IPRATRPIUM/ALBUTEROL 0.5/2.5MG 3 ML NEBU. NEB SCH ×3 (05:39→15:55)
[2018-06-20] MEDS: PIPERACILLIN/TAZOBACTAM 3.375 GM in IV NORMAL SALINE 50ML 50 ML IV SCH ×2 (05:52→12:27)
[2018-06-20] MEDS: oxyCODONE/APAP 10/325 1 TAB TABLET PO PRN ×2 (05:52→12:26)
[2018-06-20 06:04] VITALS: BP 145/82
[2018-06-20 07:03] LABS: HEMATOCRIT 28.6 % (36.0-47.0); HEMOGLOBIN 8.9 g/dL (12.0-15.5); RED BLOOD COUNT 3.51 x10^6/uL (3.50-5.40); RED CELL DISTRIBUTION WIDTH 16.5 % (11.5-14.5); WHITE BLOOD COUNT 4.2 x10^3/uL (4.0-11.0)
[2018-06-20 07:06] LABS: ALBUMIN 1.5 g/dL (3.4-5.0); ALBUMIN/GLOBULIN RATIO 0.5 (1.0-1.7); CALCIUM 7.7 mg/dL (8.5-10.1); CREATININE 0.6 mg/dL (0.6-1.0); GFR 96.7; POTASSIUM 3.2 mmol/L (3.5-5.1); TOTAL BILIRUBIN 0.3 mg/dL (0.2-1.0); TOTAL PROTEIN 4.6 g/dL (6.4-8.2)
[2018-06-20] MEDS: ACYCLOVIR 200 MG CAPSULE PO SCH ×2 (08:33→14:00)
[2018-06-20] MEDS: LISINOPRIL 20 MG TABLET PO SCH (08:35)
[2018-06-20] MEDS: GABAPENTIN 300 MG CAPSULE. PO SCH ×2 (08:36→12:26)
[2018-06-20] MEDS: amLODIPine BESYLATE 5 MG TABLET PO SCH (08:36)
[2018-06-20] MEDS: ASPIRIN ENTERIC COATED 81 MG TABLET.DR. PO SCH (08:36)
[2018-06-20] MEDS: LACTOBACILLUS RHAMNOSUS GG 1 CAPSULE. PO SCH (08:36)
[2018-06-20] MEDS: CITALOPRAM 10 MG TABLET. PO SCH (08:37)
[2018-06-20] MEDS: POTASSIUM CHLORIDE 10 MEQ TABLET.ER. PO SCH (08:37)
[2018-06-20] MEDS: SUCRALFATE 1 GM/10 ML ORAL.SUSP. PO SCH (08:45)
[2018-06-20] MEDS: ENOXAPARIN ** NOTE DOSE ** SYRINGE SQ SCH (08:46)
[2018-06-20] MEDS: CHOLECALCIFEROL (VITAMIN D3) 1,000 UNIT TABLET PO SCH (08:47)
[2018-06-20 10:48] VITALS: BP 121/77
--- NOTE | 2018-06-20 18:43 | DS ---
DATE OF DISCHARGE: 06/20/2018 HOSPITAL COURSE: The patient is a 77-year-old female patient, who came with altered mental status, was found to have right lower extremity cellulitis. She was also in severe pain. We did start her on IV Zosyn and vancomycin. Her blood cultures continued to be negative after 3 days and most of her erythema and swelling has largely subsided. We did actually venous Doppler ultrasound of her right lower extremity, which was negative and showed no Doppler evidence of lower extremity deep vein thrombosis. Her pain in the right lower extremity was severe, so we increased her oxycodone to 10 mg every 4 hours and OxyContin 10 mg twice a day and she did very well, actually she managed to get out of the bed to the chair today and it was felt that the patient would benefit from further rehabilitation and therefore, she was discharged to [facility] to continue on oral Keflex 500 mg 4 times a day for 7 more days. Continue with all her other medications, start the process of physical and occupational therapy. PHYSICAL EXAMINATION: GENERAL: When I examined her today, she was sitting comfortably in her chair, eating her lunch, in no apparent distress. She was somewhat pale, but no jaundice, cyanosis, or thyromegaly. No jugular venous distension. No lower limb edema. VITAL SIGNS: Her heart rate was 75, blood pressure was 121/77, temperature was 98.3, respiratory rate was 18 and oxygen saturation was 97% on 2 liters of oxygen. HEAD, EYES, EARS, NOSE AND THROAT: Normocephalic, atraumatic. NECK: Supple. HEART: Showed normal first and second heart sounds with no gallop, rub or murmur. CHEST: Clear to auscultation. No crepitation or rhonchi. ABDOMEN: Distended, soft, nontender. NEUROLOGIC: She is definitely more awake, alert, oriented compared to last few days. All her cranial nerves are intact. She has right-sided hemiplegia and aphasia, although she is able to complete sentences at times clearly. She used to have dysphagia and a percutaneous endoscopic gastrostomy tube that was removed after her dysphagia resolved. LABORATORY DATA: Her lab work today showed a white cell count of 4200, hemoglobin 8.9, hematocrit 28.6, MCV 81 and platelet count 220,000. Her chemistry showed a serum sodium 144, potassium 3.2, chloride 108, bicarbonate 32, anion gap of 4, BUN 7, creatinine 0.6, estimated GFR was 96 mL per minute. Her glucose was 78, calcium was 7.7. Total bilirubin, AST, ALT were normal. Alkaline phosphatase slightly elevated. Total protein was 4.6, albumin was 1.5. Her influenza A and B were negative and group A streptococcus rapid test was negative. Urinalysis was unremarkable. DISCHARGE MEDICATIONS: She was discharged to [facility] to continue on Keflex 500 mg 4 times a day and continue with all other medication including her oxycodone extended release 10 mg twice a day and Percocet 10/325 one tablet every 4 hours, lactobacillus rhamnosus 1 capsule p.o. b.i.d, Docusate sodium 100 mg b.i.d., potassium chloride 10 mEq every other day, lisinopril 40 mg once a day, amlodipine 5 mg once a day, citalopram hydrobromide 10 mg daily, vitamin D 1000 international unit once a day, albuterol and Atrovent 4 times a day, aspirin 81 mg once a day, sucralfate 1 gram p.o. b.i.d., acyclovir 400 mg 3 times a day and gabapentin 300 mg 4 times a day. FINAL DISCHARGE DIAGNOSES: Right lower extremity cellulitis, resolved and altered mental status, resolved. She has left middle cerebral artery territory infarct with right-sided hemiplegia, hypertension, degenerative joint disease, depression, generalized osteoarthritis, hyperlipidemia, and chronic obstructive pulmonary disease. OWEN MAGANA MD DR: CALLI/esequiel JOB#: [id number] / [id number]
== END 2018-06-20 15:50 | DRG 871 ==
LOC: ER 17:33 → 1 SOUTH 23:45
PROVIDERS: ADMIT Internal Medicine; ATTEND Internal Medicine
DX: A41.9 Sepsis, unspecified organism (principal); E43 Unspecified severe protein-calorie malnutrition; L03.115 Cellulitis of right lower limb; I69.354 Hemiplegia and hemiparesis following cerebral infarction affecting left non-dominant side; E78.5 Hyperlipidemia, unspecified; F32.9 Major depressive disorder, single episode, unspecified; J44.9 Chronic obstructive pulmonary disease, unspecified; I10 Essential (primary) hypertension; Z96.651 Presence of right artificial knee joint; M15.9 Polyosteoarthritis, unspecified; K21.9 Gastro-esophageal reflux disease without esophagitis; Z90.710 Acquired absence of both cervix and uterus; I69.320 Aphasia following cerebral infarction; Z93.1 Gastrostomy status; Z68.27 Body mass index [BMI] 27.0-27.9, adult; Z79.899 Other long term (current) drug therapy; Z90.49 Acquired absence of other specified parts of digestive tract; Z88.5 Allergy status to narcotic agent; Z88.8 Allergy status to other drugs, medicaments and biological substances
CPT/HCPCS: 36415; 70450; 71045; 71275; 72125; 74177; 80048; 80053; 80076; 80202; 81001; 82550; 83605; 83690; 83735; 83880; 84443; 84484; 85025; 85027; 85379; 85610; 85730; 87040; 87070; 87804; 87880; 93005; 93971; 94640; 96365; 96366; 96367; 96372; J0696; J1650; J2270; J2405; J2543; J3370; J3475; J7040; J7050; J7120; J7620; Q9967; 99285-25

== ENCOUNTER 2018-06-22 16:16 | Inpatient (IN) | payer MEDICARE ==
[~2018-06-22] VITALS: Ht 170.2 cm; Wt 62.3 kg
[~2018-06-22 16:16] MED LIST changes: +CITA10TA8 PO; +GABA300C8 PO; +SUCR1ORA11 PO
[2018-06-22] MEDS ORDERED: FUROSEMIDE 40 MG/4 ML VIAL IVP ONE (18:30)
[2018-06-22] MEDS ORDERED: oxyCODONE/APAP 7.5/325 1 TAB TABLET PO PRN (18:30)
[2018-06-22 18:35] VITALS: BP 133/75
[2018-06-22] MEDS ORDERED: MAGNESIUM CITRATE 296 ML SOLUTION. PO ONE (19:00)
[2018-06-22] MEDS ORDERED: DOCU-109 PO (19:27)
[2018-06-22] MEDS ORDERED: IPRA3AMP29 NEB (19:27)
[2018-06-22] MEDS ORDERED: OXYC10TA46 PO (19:27)
[2018-06-22] MEDS ORDERED: LACT100C2 PO (19:27)
[2018-06-22] MEDS ORDERED: CEPH-264 PO (19:29)
[2018-06-22 19:34] LABS: ALBUMIN 2.1 g/dL (3.4-5.0); ALBUMIN/GLOBULIN RATIO 0.5 (1.0-1.7); CALCIUM 8.2 mg/dL (8.5-10.1); CREATININE 0.7 mg/dL (0.6-1.0); GFR 80.9; POTASSIUM 3.2 mmol/L (3.5-5.1); TOTAL BILIRUBIN 0.2 mg/dL (0.2-1.0); TOTAL PROTEIN 6.2 g/dL (6.4-8.2)
[2018-06-22] MEDS: IPRATRPIUM/ALBUTEROL 0.5/2.5MG 3 ML NEBU. NEB SCH (20:05)
[2018-06-22] MEDS ORDERED: POTASSIUM CHLORIDE 20 MEQ TABLET.ER. PO ONE (20:45)
[2018-06-22] MEDS ORDERED: LACTOBACILLUS ACIDOPHILUS 100 MG PO SCH (21:00)
[2018-06-22] MEDS ORDERED: SMZ/TMP 800/160MG TABLET. PO SCH (21:00)
[2018-06-22] MEDS: SUCRALFATE 1 GM/10 ML ORAL.SUSP. PO SCH (21:29)
[2018-06-22] MEDS: LACTOBACILLUS RHAMNOSUS GG 1 CAPSULE. PO SCH (21:30)
[2018-06-22] MEDS: ACYCLOVIR 200 MG CAPSULE PO SCH (21:30)
[2018-06-22] MEDS: oxyCODONE ER 10 MG TAB.ER.12H PO SCH (21:30)
[2018-06-22] MEDS: DOCUSATE SODIUM 100 MG CAPSULE PO SCH (21:30)
[2018-06-22] MEDS: CEPHALEXIN 250 MG CAPSULE PO SCH (21:30)
[2018-06-22] MEDS: GABAPENTIN 300 MG CAPSULE. PO SCH (21:30)
[2018-06-22 23:00] VITALS: BP 126/73
[2018-06-23] MEDS: oxyCODONE/APAP 10/325 1 TAB TABLET PO PRN ×4 (01:20→22:48)
[2018-06-23] MEDS: IPRATRPIUM/ALBUTEROL 0.5/2.5MG 3 ML NEBU. NEB SCH ×4 (05:25→20:36)
[2018-06-23 05:50] VITALS: BP 143/72
[2018-06-23 06:33] LABS: HEMOGLOBIN 9.4 g/dL (12.0-15.5); RED BLOOD COUNT 3.73 x10^6/uL (3.50-5.40); RED CELL DISTRIBUTION WIDTH 15.8 % (11.5-14.5); WHITE BLOOD COUNT 3.8 x10^3/uL (4.0-11.0)
[2018-06-23 06:45] LABS: CALCIUM 8.1 mg/dL (8.5-10.1); CREATININE 0.7 mg/dL (0.6-1.0); GFR 80.9; POTASSIUM 3.6 mmol/L (3.5-5.1)
[2018-06-23] MEDS: LACTOBACILLUS RHAMNOSUS GG 1 CAPSULE. PO SCH ×2 (08:51→19:59)
[2018-06-23] MEDS: ASPIRIN ENTERIC COATED 81 MG TABLET.DR. PO SCH (08:51)
[2018-06-23] MEDS: GABAPENTIN 300 MG CAPSULE. PO SCH ×4 (08:51→19:58)
[2018-06-23] MEDS: LISINOPRIL 20 MG TABLET PO SCH (08:51)
[2018-06-23] MEDS: DOCUSATE SODIUM 100 MG CAPSULE PO SCH ×2 (08:51→19:59)
[2018-06-23] MEDS: amLODIPine BESYLATE 5 MG TABLET PO SCH (08:51)
[2018-06-23] MEDS: CEPHALEXIN 250 MG CAPSULE PO SCH ×5 (08:51→21:00)
[2018-06-23] MEDS: CITALOPRAM 10 MG TABLET. PO SCH (08:51)
[2018-06-23] MEDS: oxyCODONE ER 10 MG TAB.ER.12H PO SCH ×2 (08:51→19:58)
[2018-06-23] MEDS: ACYCLOVIR 200 MG CAPSULE PO SCH (08:51)
[2018-06-23] MEDS: CHOLECALCIFEROL (VITAMIN D3) 1,000 UNIT TABLET PO SCH (08:51)
[2018-06-23] MEDS: SUCRALFATE 1 GM/10 ML ORAL.SUSP. PO SCH ×2 (08:52→19:58)
--- NOTE | 2018-06-23 09:55 | EKG ---
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
[2018-06-23 11:45] VITALS: BP 116/68
[2018-06-23] MEDS ORDERED: IOHEXOL 300 MG/ML 75 ML VIAL. IV ONE (13:45)
--- NOTE | 2018-06-23 13:56 | HP ---
ADMIT DATE: 06/23/2018 HISTORY OF PRESENT ILLNESS: The patient was admitted directly from [facility] as she was noted there by the nursing staff to be short of breath. She apparently was hypoxic and her chest x-ray showed that she has left-sided pleural effusion, left lung infiltrate, mild pulmonary edema and cardiomegaly and because of hypoxia and newer finding in her chest x-ray she was admitted back directly to the [address] [place] [address]. Her lab work showed that her white cell count was 4300, hemoglobin 9.9, hematocrit 33, MCV 83, and platelet count 318,000; however, she was clinically afebrile. Her white cell count was normal and I really was not complaint that she has pneumonia. I did treat her with IV Lasix and did 2 sets of cardiac enzymes and EKG and also consulted the Cardiology team for evaluation and treatment. Her EKG showed that she was in sinus rhythm with a heart rate of 81 beats per minute. Her MS interval of 192 milliseconds, QRS duration 122. 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 PAST MEDICAL HISTORY: Significant for left middle cerebral artery territory infarct with right-sided hemiplegia, occasional aphasia, hypertension, degenerative joint disease, depression, generalized osteoarthritis. She does have a history of dysphagia, status post PEG tube placement, hyperlipidemia, and chronic obstructive pulmonary disease. She also was diagnosed with shingles in 05/07/2018, treated with acyclovir as well as recent admission with right lower extremity cellulitis, treated initially with IV antibiotic and was discharged to [place] to continue on oral Keflex. PAST SURGICAL HISTORY: Significant for appendectomy, cholecystectomy, tonsillectomy, total abdominal hysterectomy, bilateral salpingo-oophorectomy, history of percutaneous endoscopic gastrostomy tube placement, right total knee arthroplasty. ALLERGIES: She is allergic to CODEINE and GLUTEN. She is also known to have celiac disease. MEDICATIONS: She is currently on following medications: She is on Percocet 10/325 one tablet every 4 hours as needed. She is on ipratropium bromide, albuterol sulfate by nebulizer 4 times a day. I discontinued her acyclovir as she has received it for almost 6 weeks now, aspirin 81 mg once a day, vitamin D 1000 international unit once a day, gabapentin 300 mg 4 times a day, acidophilus capsule 1 capsule twice a day, potassium chloride extended release 10 mEq twice a day. She is on sucralfate 10 mL twice a day. She was on Keflex 500 mg 4 times a day, Colace 100 mg twice a day, OxyContin 10 mg twice a day. FAMILY HISTORY: Noncontributory. SOCIAL HISTORY: She is and lives with her . She never smoked, does not drink alcohol. 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 She has 2 sons and 2 daughters. REVIEW OF SYSTEMS: As per history of present illness. The patient is very confused and really was not able to give us any clear-cut history whether she had any chest pain, shortness of breath. PHYSICAL EXAMINATION: GENERAL: On arrival to the hospital, the patient looked well and was clearly in no apparent respiratory distress, somewhat pale, but not jaundiced or cyanosis. No lymphadenopathy, no thyromegaly. No jugular venous distension. No lower limb edema. VITAL SIGNS: Her heart rate was 74, blood pressure was 133/75, temperature was 97.7, respiratory rate 20, and oxygen saturation was 99%. HEAD, EYES, EARS, NOSE AND THROAT: Showed normocephalic, atraumatic. NECK: Supple. HEART: Showed normal first and second heart sounds. No gallop, rub or murmur. CHEST: Shows central trachea, equal bilateral expansion, air entry with dull percussion noted and absent breath sounds in the left side. The echo did not receive any crepitation or rhonchi. ABDOMEN: Distended, soft, nontender. NEUROLOGIC: She was somewhat confused, but all her cranial nerves intact. She has right-sided hemiplegia. ASSESSMENT AND PLAN: The patient was admitted. We will do 2 sets of cardiac enzyme. We did an EKG and I treated her with IV Lasix 40 mg. I would also consult the cardiology team. Meanwhile, we will continue with all her other medications. I am holding off the antibiotic. She is afebrile, hemodynamically stable, normal white cell count. OWEN MAGANA MD DR: CALLI/esequiel JOB#: [id number] / [id number]
[2018-06-23 16:07] VITALS: BP 111/67
--- NOTE | 2018-06-23 16:52 | RAD ---
EXAM: CT angiography of the chest with intravenous contrast. HISTORY: Shortness of breath. TECHNIQUE: Computed tomographic images of the chest were obtained following the administration of 75 cc Omnipaque 300 intravenous contrast according to angiography protocol. Multiplanar reformatting was performed and 3-dimensional maximum intensity projection images were obtained. *One or more of the following individualized dose reduction techniques were utilized for this examination: 1. Automated exposure control. 2. Adjustment of the mA and/or kV according to patient size. 3. Use of iterative reconstruction technique. COMPARISON: 06/16/2018. FINDINGS: There is no evidence of pulmonary embolism. There is limited evaluation of the lower lobe segmental and subsegmental branches due to small pleural effusions and bilateral lower lobe partial collapse/compressive atelectasis. No central embolism is seen. There is cardiomegaly. There is ossification of the aortic valve. There is a tortuous thoracic aorta. There is no pneumothorax. There is mild right greater than left apical pleural-parenchymal scarring. There are few calcified granulomas, primarily within the subcarinal distribution. The upper abdomen is unremarkable. There is increased thoracic kyphosis. There is no suspicious osseous lesion. IMPRESSION: 1. No convincing pulmonary embolism. Evaluation of the lower lobe segmental and subsegmental branches is limited due to small pleural effusions and bilateral lower lobe partial collapse/compressive atelectasis. This is new compared to the prior study. The possibility of superimposed lower lobe infiltrate is not completely excluded. 2. Cardiomegaly and slight calcification of the aortic valve. 3. Biapical pleural parenchymal scarring. Electronically signed by: Luz Tarango MD (06/23/2018 4:48 PM) [facility]
[2018-06-23 19:00] VITALS: BP 127/70
--- NOTE | 2018-06-23 19:31 | PN ---
DATE: 06/23/2018 SUBJECTIVE: The patient is sitting slightly propped up in bed, no apparent distress, eating her breakfast. On questioning her, again, she denied any complaints, in particular, she denied any chest pain, shortness of breath, cough, phlegm or hemoptysis. OBJECTIVE: GENERAL: When I examined her, she looked pale, but no jaundice, cyanosis, lymphadenopathy or thyromegaly. No jugular venous distension. No lower limb edema. VITAL SIGNS: Her heart rate was 70, blood pressure 116/68, temperature was 98.4, respiratory rate was 20, and oxygen saturation was 94% on 2 liters of oxygen. HEAD, EYES, EARS, NOSE AND THROAT: Showed normocephalic, atraumatic. NECK: Supple. HEART: Showed normal first and second heart sounds with no gallop, rub or murmur. CHEST: Shows central trachea, equal bilateral expansion, air entry, vesicular breath sounds, there is dull percussion note, absent breath sounds on the left side posteriorly. I could not appreciate any rhonchi. ABDOMEN: Distended, soft, nontender. NEUROLOGIC: She is somewhat confused, but generally responding appropriately. All cranial nerves intact. She has right-sided hemiparesis. EXTREMITIES: The right lower extremity swelling is definitely much improved as well as erythema that only now seen on the lower half of the anterior aspect of the leg. Her intake and output are incompletely recorded. LABORATORY DATA: Her lab work this morning showed a white cell count of 3800, hemoglobin 9.4, hematocrit 30, MCV 81 and platelet count of 304,000. Her chemistry showed that she has a serum sodium 142, potassium 3.6, chloride 104, bicarbonate 35, anion gap of 3, BUN 5, creatinine 0.7, estimated GFR was 81 mL per minute. Her glucose was 81, calcium was 8.1. Her CK was only 45 and troponin was less than 0.017. ASSESSMENT AND PLAN: I will continue with all her medication for now. I did discontinue her acyclovir. We will continue with her Keflex 500 mg 4 times a day for her right lower extremity cellulitis as the erythema and swelling has largely subsided. She did consult the adult education professional to evaluate the patient and I also ordered a CT scan of the chest with PE protocol. She is mostly bedbound, chair bound. We did the ultrasound of her right lower extremity which was negative for DVT and because of the newer finding on her CT scan on the chest x-ray, the CT scan will elucidate that aspect further. OWEN MAGANA MD DR: CALLI/esequiel JOB#: [id number] / [id number]
[2018-06-23 23:50] VITALS: BP 113/69
[2018-06-24] MEDS: IPRATRPIUM/ALBUTEROL 0.5/2.5MG 3 ML NEBU. NEB SCH ×4 (05:35→20:41)
[2018-06-24] MEDS: oxyCODONE/APAP 10/325 1 TAB TABLET PO PRN ×3 (05:53→19:38)
[2018-06-24 06:01] VITALS: BP 127/73
[2018-06-24 06:40] LABS: CALCIUM 8.1 mg/dL (8.5-10.1); CREATININE 0.6 mg/dL (0.6-1.0); GFR 96.7; POTASSIUM 3.9 mmol/L (3.5-5.1)
[2018-06-24] MEDS: GABAPENTIN 300 MG CAPSULE. PO SCH ×4 (08:12→19:57)
[2018-06-24] MEDS: oxyCODONE ER 10 MG TAB.ER.12H PO SCH ×2 (08:13→19:57)
[2018-06-24] MEDS: LISINOPRIL 20 MG TABLET PO SCH (08:13)
[2018-06-24] MEDS: CITALOPRAM 10 MG TABLET. PO SCH (08:13)
[2018-06-24] MEDS: amLODIPine BESYLATE 5 MG TABLET PO SCH (08:13)
[2018-06-24] MEDS: LACTOBACILLUS RHAMNOSUS GG 1 CAPSULE. PO SCH ×2 (08:14→19:57)
[2018-06-24] MEDS: CHOLECALCIFEROL (VITAMIN D3) 1,000 UNIT TABLET PO SCH (08:14)
[2018-06-24] MEDS: ASPIRIN ENTERIC COATED 81 MG TABLET.DR. PO SCH (08:14)
[2018-06-24] MEDS: DOCUSATE SODIUM 100 MG CAPSULE PO SCH ×2 (08:14→19:58)
[2018-06-24] MEDS: POTASSIUM CHLORIDE 10 MEQ TABLET.ER. PO SCH (08:14)
[2018-06-24] MEDS: SUCRALFATE 1 GM/10 ML ORAL.SUSP. PO SCH ×2 (08:15→19:56)
[2018-06-24] MEDS: CEPHALEXIN 250 MG CAPSULE PO SCH ×4 (08:29→19:57)
[2018-06-24 11:18] VITALS: BP 116/72
[2018-06-24 15:39] VITALS: BP 145/78
[2018-06-24 15:40] VITALS: BP 126/83
--- NOTE | 2018-06-24 16:07 | PN ---
DATE: 06/24/2018 SUBJECTIVE: The patient is sitting slightly propped up in bed, in no apparent distress. She is awake and alert. On questioning her, she denied any complaints. In particular, denied any chest pain or shortness of breath. Her oxygen saturation was 96% on room air. I did a CT scan of the chest with PE protocol, which showed no evidence of pulmonary emboli. She has left-sided pleural effusion as well as compressive atelectasis. She has cardiomegaly with slight calcification of the aortic valve and biapical pleural parenchymal scarring. PHYSICAL EXAMINATION: GENERAL: When I examined her this morning, she looked well, slightly pale, but no jaundice, cyanosis, or thyromegaly. VITAL SIGNS: Her heart rate was 76, blood pressure was 116/72, temperature was 97.9, respiratory rate was 18, and oxygen saturation was 96% on room air. HEAD, EYES, EARS, NOSE AND THROAT: Showed normocephalic, atraumatic. NECK: Supple. HEART: Showed normal first and second sounds. No gallop, rub, or murmur. CHEST: Clear to auscultation. No crepitation or rhonchi anteriorly. ABDOMEN: Slightly distended, soft, nontender. NEUROLOGIC: She was awake, alert, responding appropriately. She has right-sided hemiplegia. The swelling and erythema of her right lower extremity has largely subsided, though still has mild erythema on the medial aspect at lower end of the right leg. Her intake and output are incompletely recorded. LABORATORY DATA: Her lab work this morning showed a serum sodium 143, potassium 3.9, chloride 105, bicarbonate 32, anion gap of 6, BUN 5, creatinine 0.6, estimated GFR was 97 mL per minute. Her glucose was 83, calcium was 8.1. She has 2 sets of cardiac enzymes, both were less than 0.017. Her white cell count was 3800, hemoglobin 9.4, hematocrit 30, MCV 81, and platelet count 304,000. ASSESSMENT: This is a 77-year-old female patient who was admitted directly from [facility] with increasing shortness of breath and hypoxia. Chest x-ray thus showed she has mild pulmonary edema and left-sided pleural effusion. I am not really convinced that she has pneumonia. She was treated with IV Lasix and did very well. Two sets of cardiac enzymes ruled out myocardial infarction. Her CT scan showed no evidence of pulmonary embolism, but did show that she has left-sided pleural effusion and compressive atelectasis. I continued her Keflex to finish the course of treatment for right lower extremity cellulitis. I did discontinue her acyclovir as she has been on it for shingles for more than 6 weeks. I did consult the borematic operator, who will see her tomorrow and if she remains stable, we can discharge her back to [place]. I did discontinue her oxygen as she is satting at 96% on room air. OWEN MAGANA MD DR: CALLI/esequiel JOB#: [id number] / [id number]
[2018-06-24 18:38] VITALS: BP 128/78
[2018-06-25 00:48] VITALS: BP 140/71
[2018-06-25] MEDS: oxyCODONE/APAP 10/325 1 TAB TABLET PO PRN ×3 (03:43→16:51)
[2018-06-25] MEDS: IPRATRPIUM/ALBUTEROL 0.5/2.5MG 3 ML NEBU. NEB SCH ×4 (05:43→20:37)
[2018-06-25 06:36] VITALS: BP 121/74
[2018-06-25] MEDS: SUCRALFATE 1 GM/10 ML ORAL.SUSP. PO SCH ×2 (08:11→21:02)
[2018-06-25] MEDS: CHOLECALCIFEROL (VITAMIN D3) 1,000 UNIT TABLET PO SCH (08:12)
[2018-06-25] MEDS: amLODIPine BESYLATE 5 MG TABLET PO SCH (08:12)
[2018-06-25] MEDS: oxyCODONE ER 10 MG TAB.ER.12H PO SCH ×2 (08:15→21:03)
[2018-06-25] MEDS: LISINOPRIL 20 MG TABLET PO SCH (08:15)
[2018-06-25] MEDS: LACTOBACILLUS RHAMNOSUS GG 1 CAPSULE. PO SCH ×2 (08:16→21:02)
[2018-06-25] MEDS: CITALOPRAM 10 MG TABLET. PO SCH (08:16)
[2018-06-25] MEDS: CEPHALEXIN 250 MG CAPSULE PO SCH ×4 (08:16→21:03)
[2018-06-25] MEDS: GABAPENTIN 300 MG CAPSULE. PO SCH ×4 (08:18→21:02)
[2018-06-25] MEDS: DOCUSATE SODIUM 100 MG CAPSULE PO SCH ×2 (08:19→21:03)
[2018-06-25] MEDS: ASPIRIN ENTERIC COATED 81 MG TABLET.DR. PO SCH (08:19)
--- NOTE | 2018-06-25 09:17 | PDOC2 ---
ERMELINDA ALLAN APRN 06/25/18 0917: CONSULT Date of Admission DATE: 06/25/18 TIME: 09:16 Reason for Consult: CHF History of Present Illness Ms Lindsay is a 77 year old female with history of hypertension, CVA, hyperlipidemia and recent admission for cellulitis who was [facility] due to dyspnea and hypoxia. She is a poor historian and most of history obtained from the chart. She was apparently observed by nursing staff to be short of breath and chest xray was done revealing a left pleural effusion, left infiltrate and mild pulmonary edema. She was sent to hospital for admission and treatment and consult was called for heart failure. She currently denies dyspnea, chest pain, palpitations or lightheadedness. She denies congestive symptoms. She complains of right sided arm and leg pain which she states is chronic. Past Medical History left MCA infarct with right-sided hemiplegia and aphasia, dysphagia s/p PEG, hypertension, degenerative joint disease, depression, generalized osteoarthritis , hyperlipidemia, COPD, shingles, recent right lower extremity cellulitis . Past Surgical History appendectomy, cholecystectomy, tonsillectomy, total abdominal hysterectomy, bilateral salpingo-oophorectomy, percutaneous endoscopic gastrostomy tube placement, right total knee arthroplasty Social History non smoker, no significant ETOH, no illicit drugs, lives with but currently resides [facility] Current Medications Current Medications Furosemide (Lasix) 40 mg 1X ONCE IVP Last administered on 06/22/18at 21:29; Start 06/22/18 at 18:30; Stop 06/22/18 at 18:31; Status DC Vitamin D (Vitamin D3) 1,000 unit DAILY PO Last administered on 06/25/18at 08:12 ; Start 06/23/18 at 09:00 Citalopram Hydrobromide (CeleXA) 10 mg DAILY PO Last administered on 06/25/18 08:16; Start 06/23/18 at 09:00 Oxycodone/ Acetaminophen (Percocet 7.5/ 325) 1 tab PRN QID PRN PO PAIN Last administered on 06/22/18at 18:53; Start 06/22/18 at 18:30; Stop 06/22/18 at 19 :31; Status DC Amlodipine Besylate (Norvasc) 5 mg DAILY PO Last administered on 06/25/18at 08: 12; Start 06/23/18 at 09:00 Aspirin (Aspirin Enteric Coated) 81 mg DAILYWBKFT PO Last administered on at 08:19; Start 06/23/18 at 08:00 Gabapentin (Neurontin) 300 mg QID PO Last administered on 06/25/18at 08:18; Start 06/22/18 at 21:00 Lisinopril (Prinivil) 40 mg DAILY PO Last administered on 06/25/18at 08:15; Start 06/23/18 at 09:00 Magnesium Citrate (Citroma) 296 ml 1X ONCE PO ; Start 06/22/18 at 19:00; Stop 06/22/18 at 19:21; Status DC Potassium Chloride (Klor-Con) 10 meq QODAY PO Last administered on 06/24/18at 08 :14; Start 06/24/18 at 09:00 Sucralfate (Carafate) 1 gm BID PO Last administered on 06/25/18at 08:11; Start 06/22/18 at 21:00 Trimethoprim/ Sulfamethoxazole (Bactrim Ds) 1 tab BID PO ; Start 06/22/18 at 21 :00; Stop 06/22/18 at 21:00; Status DC Acyclovir (Zovirax) 400 mg [id number] PO Last administered on 06/23/18at 08:51; Start 06/22/18 at 21:00; Stop 06/23/18 at 13:04; Status DC Lactobacillus Rhamnosus (Culturelle) 1 cap BID PO Last administered on at 08:16; Start 06/22/18 at 21:00 Albuterol/ Ipratropium (Duoneb) 3 ml RTQID NEB Last administered on 06/25/18at 05:43; Start 06/22/18 at 20:00 Oxycodone HCl (OxyCONTIN) 10 mg BID PO Last administered on 06/25/18at 08:15; Start 06/22/18 at 21:00 Docusate Sodium (Colace) 100 mg BID PO Last administered on 06/24/18at 08:14; Start 06/22/18 at 21:00 Non-Formulary Medication (Lactobacillus Acidophilus (Acidophilus)) 100 mg BID PO ; Start 06/22/18 at 21:00; Status UNV Cephalexin HCl (Keflex) 500 mg QID PO Last administered on 06/25/18at 08:16; Start 06/22/18 at 21:00 Oxycodone/ Acetaminophen (Percocet 10/325) 1 tab PRN Q4HRS PRN PO pain Last administered on 06/25/18at 03:43; Start 06/22/18 at 19:30 Potassium Chloride (Klor-Con) 40 meq 1X ONCE PO Last administered on at 21:30; Start 06/22/18 at 20:45; Stop 06/22/18 at 20:46; Status DC Iohexol (Omnipaque 300 Mg/ml) 75 ml 1X ONCE IV Last administered on 06/23/18at 15:16; Start 06/23/18 at 13:45; Stop 06/23/18 at 13:46; Status DC Active Scripts Active Magnesium Citrate 296 Ml Solution 296 Ml PO ONCE Bactrim Ds Tablet (Sulfamethoxazole/Trimethoprim) 1 Each Tablet 1 Tab PO BID Acyclovir 400 Mg Tablet 1 Tab PO TID Reported Keflex (Cephalexin) 500 Mg Capsule 1 Cap PO QID Oxycontin (Oxycodone HCl) 10 Mg Tab.er.12h 10 Mg PO BID Colace (Docusate Sodium) 100 Mg Capsule 1 Cap PO BID Acidophilus (Lactobacillus Acidophilus) 100 Mg Capsule 100 Mg PO BID Duoneb 0.5-3(2.5) Mg/3 Ml (Albuterol/Ipratropium) 3 Ml Ampul.neb 3 Ml NEB QID Sucralfate 1 Gm/10 Ml Oral.susp 10 Mg PO BID Celexa (Citalopram Hydrobromide) 10 Mg Tablet 10 Mg PO DAILY Gabapentin 300 Mg Capsule 300 Mg PO QID Vitamin D3 (Cholecalciferol (Vitamin D3)) 1,000 Unit Tablet 1,000 Unit PO DAILY Aspir-Low (Aspirin) 81 Mg Tablet.dr 81 Mg PO DAILY Lisinopril 40 Mg Tablet 40 Mg PO DAILY LAST DOSE GIVEN: DATE: 01/12 TIME: 0900 NEXT DOSE DUE: DATE:01/13 TIME: 0900 Potassium Chloride 10 Meq Tablet.er 10 Meq PO QODAY Oxycodon-Acetaminophen 7.5-325 (Oxycodone Hcl/Acetaminophen) 1 Each Tablet 1 Tab PO PRN QID PRN LAST DOSE GIVEN: DATE: TIME: NEXT DOSE DUE: DATE: TIME: Amlodipine Besylate 5 Mg Tablet 5 Mg PO DAILY LAST DOSE GIVEN: HELD this AM NEXT DOSE DUE: DATE: 01/13 TIME: 0900 Check Blood Pressure before administration Allergies: Coded Allergies: codeine (Verified Allergy, Intermediate, 05/07/18) gluten (Unverified Allergy, Intermediate, 05/07/18) Review of System as per hpi otherwise poor historian General: Alert, Cooperative, No acute distress HEENT: Atraumatic, EOMI, Mucous membr. moist/pink Lungs: Other (mildly decreased in bases otherwise clear) Heart: Normal S1, Normal S2 Abdomen: Normal bowel sounds, Soft Extremities: No cyanosis, Other (mild lower extremity edema) Neuro: Other (voice hoarse) Psych/Mental Status: Mood NL VITALS Vital Signs Date Time Temp Pulse Resp B/P (MAP) Pulse Ox O2 Delivery O2 Flow Rate FiO2 06/25/18 08:15 82 121/74 06/25/18 06:36 97.8 16 94 Room Air 06/24/18 12:21 2.0 Labs Laboratory Tests Test 06/23/18 13:04 06/24/18 06:13 Troponin I Quantitative < 0.017 ng/mL (0-0.055) Sodium Level 143 mmol/L (136-145) Potassium Level 3.9 mmol/L (3.5-5.1) Chloride Level 105 mmol/L (98-107) Carbon Dioxide Level 32 mmol/L (21-32) Anion Gap 6 (6-14) Blood Urea Nitrogen 5 mg/dL (7-20) Creatinine 0.6 mg/dL (0.6-1.0) Estimated GFR (Cockcroft-Gault) 96.7 Glucose Level 83 mg/dL (70-99) Calcium Level 8.1 mg/dL (8.5-10.1) Images CT - IMPRESSION: 1. No convincing pulmonary embolism. Evaluation of the lower lobe segmental and subsegmental branches is limited due to small pleural effusions and bilateral lower lobe partial collapse/compressive atelectasis. This is new compared to the prior study. The possibility of superimposed lower lobe infiltrate is not completely excluded. 2. Cardiomegaly and slight calcification of the aortic valve. 3. Biapical pleural parenchymal scarring. EKG- sinus rhythm, IBBB, nonspecific changes Assessment/Plan 1. mild acute prob diastolic heart failure - improved clinically after IV lasix. Check echo, lisinopril. Check echo. 2. COPD - Sao2 93% on room air, mgmt per PCP 3. hypertension - well controlled on current medical therapy. 4. Prior CVA - per PCP 5. protein malnutrition - per PCP 6. unk lipid status - check lipids ALEXANDRA ROE MD 06/25/18 2232: CONSULT Assessment/Plan Patient seen and examined. Agree with ESTHETICIAN's assessment and plan. Acute on chronic diastolic HF improved with diuresis with Lasix BP better controlled since admission 2D echo showed normal LV function with probably moderate We will consider ischemic evaluation as outpatient Thank you for your consultation ERMELINDA ALLAN APRN Jun 25, 2018 09:17 ALEXANDRA ROE MD Jun 25, 2018 22:32
[2018-06-25 10:29] VITALS: BP 112/70
[2018-06-25 14:59] VITALS: BP 117/77
--- NOTE | 2018-06-25 15:56 | CARD ---
MR#: [id number] Date of Study: 06/25/2018 Ordering Physician: ERMELINDA ALLAN, Referring Physician: OWEN MAGANA Tech: Letty Camacho [facility] APPROVED REPORT EXAM: Two-dimensional and M-mode echocardiogram with Doppler and color Doppler. Other Information Quality : Technically LimitedHR: 67bpm Rhythm : NSRTechnically limited study due to COPD INDICATION Congestive Heart Failure 2D DIMENSIONS Left Atrium(2D)3.6 (1.6-4.0cm)IVSd1.4 (0.7-1.1cm) Aortic Root(2D)2.3 (2.0-3.7cm)LVDd3.6 (3.9-5.9cm) LVOT Diameter1.9 (1.8-2.4cm)PWd1.0 (0.7-1.1cm) LVDs2.1 (2.5-4.0cm)FS (%) 39.9 % SV38.2 mlLVEF(%)70.0 (>50%) M-Mode DIMENSIONS Left Atrium(MM)3.71 (2.5-4.0cm)Aortic Root2.92 (2.2-3.7cm) Aortic Valve AoV Peak Terry.186.2cm/sAoV VTI43.5cm AO Peak GR.13.9mmHgLVOT Peak Terry.109.6cm/s LVOT VTI 24.07cmAO Mean GR.8mmHg DENIS (VMAX)1.35rn9VFF (VTI)1.54cm2 Mitral Valve MV E Kvvthwvu24.3cm/sMV DECEL [id number] MV A Hekhrdmz18.0cm/sE/A Ratio0.8 MV A [id number] Pulmonary Valve PV Peak Ejbcsbmk464.8cm/sPV Peak Grad.5mmHg LEFT VENTRICLE The left ventricle cavity is small. Proximal septal thickening is noted. The left ventricular systoli c function is normal and the ejection fraction is within normal range. The Ejection Fraction is 65-70 %. There is normal LV segmental wall motion. Transmitral Doppler flow pattern is Grade I-abnormal rel axation pattern. RIGHT VENTRICLE The right ventricle is normal size. There is normal right ventricular wall thickness. The right ventr icular systolic function is normal. ATRIA The left atrium size is normal. The right atrium size is normal. The interatrial septum is intact wit h no evidence for an atrial septal defect or patent foramen ovale as noted on 2-D or Doppler imaging. AORTIC VALVE The aortic valve is moderately calcified. Visually there appears to be moderate aortic stenosis. Dopp ler and Color Flow revealed no significant aortic regurgitation. There is mild valvular aortic stenos is. Calculated aortic valve area is 1.5 cm2 with maximum pressure gradient of 14 mmHg and mean pressu re gradient of 8 mmHg. MITRAL VALVE The mitral valve is normal in structure and function. There is no evidence of mitral valve prolapse. There is no mitral valve stenosis. Doppler and Color-flow revealed trace mitral regurgitation. TRICUSPID VALVE The tricuspid valve is normal in structure and function. Doppler and Color Flow revealed no tricuspid valve regurgitation noted. There is no tricuspid valve prolapse or vegetation. There is no tricuspid valve stenosis. PULMONIC VALVE Pulmonic valve not well visualized. GREAT VESSELS The aortic root is normal in size. The ascending aorta is normal in size. The IVC is normal in size a nd collapses >50% with inspiration. PERICARDIAL EFFUSION There is no evidence of significant pericardial effusion. Critical Notification Critical Value: No <Conclusion> The left ventricular systolic function is normal and the ejection fraction is within normal range. Th e Ejection Fraction is 65-70%. There is normal LV segmental wall motion. The aortic valve is moderately calcified. Visually there appears to be moderate aortic stenosis. Dopp ler evaluation only reveals mild stenosis with MG of 15 mm Hg. Signed by : Kevin Naranjo, Electronically Approved : 06/25/2018 15:55:12
[2018-06-25 18:29] VITALS: BP 100/64
[2018-06-25 23:25] VITALS: BP 132/84
--- NOTE | 2018-06-26 03:28 | PN ---
DATE: 06/25/2018 SUBJECTIVE: The patient is resting slightly propped up in bed, in no apparent respiratory distress. She is awake, alert. On questioning her, she denied any chest pain, shortness of breath, cough, phlegm or hemoptysis. She is off the oxygen and maintaining her oxygen saturation of 93% on room air. The only complaint offered was pain in her right lower extremity; however, the swelling and erythema has almost completely resolved. She was seen by the Cardiology team and they are planning to do an echocardiogram. PHYSICAL EXAMINATION: GENERAL: When I examined her this afternoon, she looked well and was clearly in no apparent respiratory distress, pale, no jaundice, cyanosis, or thyromegaly. No jugular venous distension. No limb edema. VITAL SIGNS: Her heart rate was 79, blood pressure was 112/70, temperature was 97.9, respiratory rate 20, and oxygen saturation was 93% on room air. HEAD, EYES, EARS, NOSE AND THROAT: Showed normocephalic, atraumatic. NECK: Supple. HEART: Showed normal first and second heart sounds with no gallop, rub or murmur. CHEST: Clear to auscultation. No crepitation or rhonchi. ABDOMEN: Distended, soft, and nontender. NEUROLOGIC: She is awake, alert, and responding appropriately. She has right-sided hemiparesis. Her intake over the last 24 hours was 200, no output was recorded. LABORATORY DATA: Her most recent lab work showed a serum sodium 143, potassium 3.9, chloride 105, bicarbonate 32, anion gap of 6, BUN 5, creatinine 0.6, estimated GFR was 96 mL per minute. Her glucose was 83, calcium was 8.1. She had 2 sets of cardiac enzymes, which ruled out myocardial infarction. Her white cell count was 3800, hemoglobin 9.4, hematocrit 30, and platelets 304. Her nasal screen for MRSA by PCR was negative. ASSESSMENT: Questionable acute congestive heart failure with mild pulmonary edema and left-sided pleural effusion. Other medical problems include left middle cerebral artery territory infarct with right-sided hemiplegia, hypertension, degenerative joint disease, depression, generalized osteoarthritis. She does have history of dysphagia, status post PEG tube placement, hyperlipidemia, and chronic obstructive pulmonary disease. She was also diagnosed with shingles on 05/07/2018 and received acyclovir for that and was recently treated for right lower extremity cellulitis and she continues on oral Keflex. My plan is to await the result of echocardiogram this afternoon and will be able hopefully to discharge her back to [facility] to continue the process of rehabilitation. OWEN MAGANA MD DR: CALLI/esequiel JOB#: [id number] / [id number]
[2018-06-26] MEDS: IPRATRPIUM/ALBUTEROL 0.5/2.5MG 3 ML NEBU. NEB SCH ×2 (05:31→09:25)
[2018-06-26] MEDS: oxyCODONE/APAP 10/325 1 TAB TABLET PO PRN ×2 (05:38→12:48)
[2018-06-26 05:55] VITALS: BP 121/70
[2018-06-26] MEDS: SUCRALFATE 1 GM/10 ML ORAL.SUSP. PO SCH (08:25)
[2018-06-26] MEDS: CHOLECALCIFEROL (VITAMIN D3) 1,000 UNIT TABLET PO SCH (08:25)
[2018-06-26] MEDS: LISINOPRIL 20 MG TABLET PO SCH (08:25)
[2018-06-26] MEDS: DOCUSATE SODIUM 100 MG CAPSULE PO SCH (08:25)
[2018-06-26] MEDS: LACTOBACILLUS RHAMNOSUS GG 1 CAPSULE. PO SCH (08:25)
[2018-06-26] MEDS: CEPHALEXIN 250 MG CAPSULE PO SCH ×2 (08:26→12:46)
[2018-06-26] MEDS: GABAPENTIN 300 MG CAPSULE. PO SCH ×2 (08:26→12:46)
[2018-06-26] MEDS: ASPIRIN ENTERIC COATED 81 MG TABLET.DR. PO SCH (08:27)
[2018-06-26] MEDS: CITALOPRAM 10 MG TABLET. PO SCH (08:28)
[2018-06-26] MEDS: amLODIPine BESYLATE 5 MG TABLET PO SCH (08:28)
[2018-06-26] MEDS: POTASSIUM CHLORIDE 10 MEQ TABLET.ER. PO SCH (08:28)
[2018-06-26] MEDS: oxyCODONE ER 10 MG TAB.ER.12H PO SCH (08:28)
--- NOTE | 2018-06-26 09:44 | PDOC ---
PROGRESS NOTES Assessment 1. mild acute diastolic heart failure - compensated clinically. Continue lisinopril, amlodipine. prob mod by echo. avoid hypotension, goal [id number] 130. 2. COPD - Sao2 95% on room air, mgmt per PCP 3. hypertension - well controlled on current medical therapy. 4. Prior CVA - per PCP 5. protein malnutrition - per PCP 6. unk lipid status - lipids pending. Statin as indicated. No further recs at this time. Outpatient follow up and consider ischemic eval at that time. Please call with any questions or concerns. Subjective sleepy, no chest pain, dyspnea, palpitations Objective Vital Signs Date Time Temp Pulse Resp B/P (MAP) Pulse Ox O2 Delivery O2 Flow Rate FiO2 06/26/18 09:26 95 Room Air 06/26/18 08:28 63 121/70 06/26/18 05:55 98.1 18 06/24/18 12:21 2.0 Intake and Output 06/26/18 07:00 Intake Total 580 ml Balance 580 ml Intake Oral 580 ml # Voids 5 # Bowel Movements 3 Abdomen: Normal bowel sounds, Soft Heart: Normal S1, Normal S2, Other (+ESM 2/6) Extremities: No cyanosis, Other (+1 edema, stasis dermatitis RLE) General: No acute distress HEENT: Atraumatic Lungs: Clear to auscultation Review of Relevant I have reviewed the following items nicho (where applicable) has been applied. Medications Current Medications Furosemide (Lasix) 40 mg 1X ONCE IVP Last administered on 06/22/18at 21:29; Start 06/22/18 at 18:30; Stop 06/22/18 at 18:31; Status DC Vitamin D (Vitamin D3) 1,000 unit DAILY PO Last administered on 06/26/18at 08:25 ; Start 06/23/18 at 09:00 Citalopram Hydrobromide (CeleXA) 10 mg DAILY PO Last administered on 06/26/18at 08:28; Start 06/23/18 at 09:00 Oxycodone/ Acetaminophen (Percocet 7.5/ 325) 1 tab PRN QID PRN PO PAIN Last administered on 06/22/18at 18:53; Start 06/22/18 at 18:30; Stop 06/22/18 at 19 :31; Status DC Amlodipine Besylate (Norvasc) 5 mg DAILY PO Last administered on 06/26/18 08: 28; Start 06/23/18 at 09:00 Aspirin (Aspirin Enteric Coated) 81 mg [id number] PO Last administered on 08:27; Start 06/23/18 at 08:00 Gabapentin (Neurontin) 300 mg QID PO Last administered on 06/26/18 08:26; Start 06/22/18 at 21:00 Lisinopril (Prinivil) 40 mg DAILY PO Last administered on 06/26/18 08:25; Start 06/23/18 at 09:00 Magnesium Citrate (Citroma) 296 ml 1X ONCE PO ; Start 06/22/18 at 19:00; Stop 06/22/18 at 19:21; Status DC Potassium Chloride (Klor-Con) 10 meq QODAY PO Last administered on 06/26/18 08 :28; Start 06/24/18 at 09:00 Sucralfate (Carafate) 1 gm BID PO Last administered on 06/26/18 08:25; Start 06/22/18 at 21:00 Trimethoprim/ Sulfamethoxazole (Bactrim Ds) 1 tab BID PO ; Start 06/22/18 at 21 :00; Stop 06/22/18 at 21:00; Status DC Acyclovir (Zovirax) 400 mg [id number] PO Last administered on 06/23/18 08:51; Start 06/22/18 at 21:00; Stop 06/23/18 at 13:04; Status DC Lactobacillus Rhamnosus (Culturelle) 1 cap BID PO Last administered on 08:25; Start 06/22/18 at 21:00 Albuterol/ Ipratropium (Duoneb) 3 ml RTQID NEB Last administered on 06/26/18 09:25; Start 06/22/18 at 20:00 Oxycodone HCl (OxyCONTIN) 10 mg BID PO Last administered on 06/26/18 08:28; Start 06/22/18 at 21:00 Docusate Sodium (Colace) 100 mg BID PO Last administered on 06/26/18 08:25; Start 06/22/18 at 21:00 Non-Formulary Medication (Lactobacillus Acidophilus (Acidophilus)) 100 mg BID PO ; Start 06/22/18 at 21:00; Status UNV Cephalexin HCl (Keflex) 500 mg QID PO Last administered on 06/26/18at 08:26; Start 06/22/18 at 21:00 Oxycodone/ Acetaminophen (Percocet 10/325) 1 tab PRN Q4HRS PRN PO pain Last administered on 06/26/18at 05:38; Start 06/22/18 at 19:30 Potassium Chloride (Klor-Con) 40 meq 1X ONCE PO Last administered on at 21:30; Start 06/22/18 at 20:45; Stop 06/22/18 at 20:46; Status DC Iohexol (Omnipaque 300 Mg/ml) 75 ml 1X ONCE IV Last administered on 06/23/18at 15:16; Start 06/23/18 at 13:45; Stop 06/23/18 at 13:46; Status DC Active Scripts Active Magnesium Citrate 296 Ml Solution 296 Ml PO ONCE Bactrim Ds Tablet (Sulfamethoxazole/Trimethoprim) 1 Each Tablet 1 Tab PO BID Acyclovir 400 Mg Tablet 1 Tab PO TID Reported Keflex (Cephalexin) 500 Mg Capsule 1 Cap PO QID Oxycontin (Oxycodone HCl) 10 Mg Tab.er.12h 10 Mg PO BID Colace (Docusate Sodium) 100 Mg Capsule 1 Cap PO BID Acidophilus (Lactobacillus Acidophilus) 100 Mg Capsule 100 Mg PO BID Duoneb 0.5-3(2.5) Mg/3 Ml (Albuterol/Ipratropium) 3 Ml Ampul.neb 3 Ml NEB QID Sucralfate 1 Gm/10 Ml Oral.susp 10 Mg PO BID Celexa (Citalopram Hydrobromide) 10 Mg Tablet 10 Mg PO DAILY Gabapentin 300 Mg Capsule 300 Mg PO QID Vitamin D3 (Cholecalciferol (Vitamin D3)) 1,000 Unit Tablet 1,000 Unit PO DAILY Aspir-Low (Aspirin) 81 Mg Tablet.dr 81 Mg PO DAILY Lisinopril 40 Mg Tablet 40 Mg PO DAILY LAST DOSE GIVEN: DATE: 01/12 TIME: 0900 NEXT DOSE DUE: DATE:01/13 TIME: 0900 Potassium Chloride 10 Meq Tablet.er 10 Meq PO QODAY Oxycodon-Acetaminophen 7.5-325 (Oxycodone Hcl/Acetaminophen) 1 Each Tablet 1 Tab PO PRN QID PRN LAST DOSE GIVEN: DATE: TIME: NEXT DOSE DUE: DATE: TIME: Amlodipine Besylate 5 Mg Tablet 5 Mg PO DAILY LAST DOSE GIVEN: HELD this AM NEXT DOSE DUE: DATE: 01/13 TIME: 0900 Check Blood Pressure before administration Vitals/I & O Vital Sign - Last 24 Hours 06/25/18 06/25/18 06/25/18 06/25/18 10:29 10:46 14:59 16:46 Temp 97.9 98.2 Pulse 79 68 Resp 20 20 B/P (MAP) 112/70 (84) 117/77 (90) Pulse Ox 93 92 96 94 O2 Delivery Room Air Room Air Room Air Room Air 06/25/18 06/25/18 06/25/18 06/25/18 18:29 20:37 20:42 21:03 Temp 98.0 Pulse 81 Resp 20 22 B/P (MAP) 100/64 (76) Pulse Ox 91 95 O2 Delivery Room Air Room Air Room Air Room Air 06/25/18 06/26/18 06/26/18 06/26/18 23:25 01:06 05:32 05:55 Temp 98.1 98.1 Pulse 83 63 Resp 18 18 18 B/P (MAP) 132/84 (100) 121/70 (87) Pulse Ox 94 95 94 O2 Delivery Room Air Room Air Room Air Room Air 06/26/18 06/26/18 06/26/18 06/26/18 08:00 08:25 08:28 09:26 Pulse 63 63 B/P (MAP) 121/70 121/70 Pulse Ox 95 O2 Delivery Room Air Room Air Intake and Output 06/25/18 06/25/18 06/26/18 15:00 23:00 07:00 Intake Total 240 ml 240 ml 100 ml Balance 240 ml 240 ml 100 ml ERMELINDA ALLAN APRN Jun 26, 2018 09:44
[2018-06-26 10:55] VITALS: BP 119/68
--- NOTE | 2018-06-26 22:51 | DS ---
DATE OF DISCHARGE: 06/26/2018 HOSPITAL COURSE: The patient is a 77-year-old female patient, who was admitted directly from [facility] as she was noted to be hypoxic. A chest x-ray showed that she had left-sided pleural effusion and mild pulmonary edema as well as questionable infiltrate; however, the patient was afebrile with normal white cell count. She has no cough or phlegm and I did treat her with IV Lasix and has responded very well. She was also on large amount of narcotics. She was getting Percocet 10/325 one tablet every 4 hours as well as OxyContin 10 mg twice a day and that might have contributed to her hypoxia. In any case, the patient remained hemodynamically stable, afebrile. Her white cell count is normal. Her oxygen saturation now is 93-94% on room air. A decision was made to discharge her back to [facility] to continue the process of rehabilitation. OBJECTIVE: GENERAL: When I saw her today, she looked well and was clearly in no apparent respiratory distress. She was comfortably eating her lunch. She was pale, but no jaundice, cyanosis or thyromegaly. No jugular venous distension. No limb edema. VITAL SIGNS: Her heart rate was 67, blood pressure was 119/68. Her temperature was 97.9, respiratory rate 20 and oxygen saturation was 94% on room air. HEAD, EYES, EARS, NOSE AND THROAT: Showed normocephalic, atraumatic. NECK: Supple. CARDIAC: Normal first and second heart sounds with no gallop, rub or murmur. CHEST: Clear to auscultation. No crepitation or rhonchi. ABDOMEN: Distended, soft, nontender. No guarding or rigidity. No organomegaly. Hernial orifice intact. Bowel sounds normal. NEUROLOGIC: She was awake, alert, responding appropriately. All cranial nerves are intact. She has right-sided hemiparesis. Her intake was 580. LABORATORY DATA: Her serum sodium was 143, potassium 3.9, chloride 105, bicarbonate 32, anion gap of 6, BUN 5, creatinine 0.6. Estimated GFR was 97 mL per minute. Her glucose was 83. Calcium was 8.1. She has 2 sets of cardiac enzymes to rule out myocardial infarction. Her white cell count was 3800, hemoglobin 9.4, hematocrit 30, MCV 81, and platelet count 304,000. Her nasal screen for MRSA by PCR was negative. ASSESSMENT: She was discharged back to [place] to continue on amlodipine 5 mg once a day, aspirin 81 mg once a day, cephalexin 500 mg twice a day for 2 more days, cholecalciferol 1000 international units once a day, citalopram hydrobromide or Celexa 10 mg once a day, Colace 100 mg twice a day, gabapentin 300 mg 4 times a day, ipratropium bromide, albuterol inhaler sulfate by nebulizer 4 times a day, lactobacillus acidophilus 1 capsule twice a day, lisinopril 40 mg once a day, magnesium citrate 1 bottle daily p.r.n. for constipation and oxycodone for OxyContin 10 mg twice a day and oxycodone/APAP 7.5/325 one tablet every 4 hours, potassium chloride 10 mEq every other day, sucralfate 1 gram p.o. b.i.d. FINAL DISCHARGE DIAGNOSES: 1. Acute hypoxic respiratory failure. 2. Acute diastolic congestive heart failure. 3. Left-sided pleural effusion. 4. Left middle cerebral artery territory infarct with right-sided hemiplegia, hypertension, generalized degenerative joint disease. Dysphagia has resolved, chronic obstructive pulmonary disease. OWEN MAGANA MD DR: CALLI/esequiel JOB#: [id number] / [id number]
== END 2018-06-26 16:00 | DRG 291 ==
LOC: 1 SOUTH 18:14
PROVIDERS: ADMIT Internal Medicine; ATTEND Internal Medicine
DX: I11.0 Hypertensive heart disease with heart failure (principal); J96.01 Acute respiratory failure with hypoxia; L03.115 Cellulitis of right lower limb; I45.2 Bifascicular block; I69.351 Hemiplegia and hemiparesis following cerebral infarction affecting right dominant side; I50.33 Acute on chronic diastolic (congestive) heart failure; E78.5 Hyperlipidemia, unspecified; F32.9 Major depressive disorder, single episode, unspecified; Z96.651 Presence of right artificial knee joint; R13.10 Dysphagia, unspecified; J44.9 Chronic obstructive pulmonary disease, unspecified; M15.9 Polyosteoarthritis, unspecified; Z79.82 Long term (current) use of aspirin; Z79.899 Other long term (current) drug therapy; Z93.1 Gastrostomy status; Z90.710 Acquired absence of both cervix and uterus; Z90.722 Acquired absence of ovaries, bilateral; Z90.49 Acquired absence of other specified parts of digestive tract; Z88.5 Allergy status to narcotic agent; Z88.8 Allergy status to other drugs, medicaments and biological substances
CPT/HCPCS: 36415; 71275; 80048; 80053; 82550; 83880; 84484; 85027; 87641; 93005; 93306; 94640; J1940; J7620; Q9967; 97110; 97530

== ENCOUNTER 2018-07-04 15:44 | Inpatient (IN) | payer MEDICARE ==
[~2018-07-04] VITALS: Ht 170.2 cm; Wt 65.3 kg
[~2018-07-04 15:44] MED LIST changes: +CEPH-264 PO; +IPRA3AMP29 NEB; +LACT100C2 PO; +OXYC10TA46 PO
[2018-07-04] MEDS ORDERED: IV NORMAL SALINE 1,000ML 1,000 ML IV SCH (16:00)
[2018-07-04 16:19] LABS: BASO % 1 % (0-3); EOS # 0.1 x10^3/uL (0.0-0.7); EOS % 3 % (0-3); HEMATOCRIT 31.9 % (36.0-47.0); LYMPH % 18 % (24-48); MEAN CORPUSCULAR HEMOGLOBIN 26 pg (25-35); MEAN CORPUSCULAR HGB CONC 31 g/dL (31-37); MEAN CORPUSCULAR VOLUME 82 fL (79-100); MONO # 0.7 x10^3/uL (0.0-1.1); MONO % 13 % (0-9); NEUT # 3.7 x10^3uL (1.8-7.7); NEUT % 66 % (31-73); PLATELET COUNT 436 x10^3/uL (140-400); RED CELL DISTRIBUTION WIDTH 15.9 % (11.5-14.5); WHITE BLOOD COUNT 5.6 x10^3/uL (4.0-11.0)
--- NOTE | 2018-07-04 16:28 | RAD ---
PORTABLE CHEST 1V Clinical Indication: HYPOTENSION Comparison: AP chest, June 16, 2018. Findings: Tortuous thoracic aorta. The cardiomediastinal silhouette is normal. Lungs are clear. There is no pneumothorax. No pleural effusion is appreciated. Demineralization. IMPRESSION: No acute cardiopulmonary process. Electronically signed by: Angel Rodríguez MD (07/04/2018 4:24 PM) [id number]
[2018-07-04 16:35] LABS: INFLUENZA A PATIENT NEGATIVE (NEGATIVE); INFLUENZA B PATIENT NEGATIVE (NEGATIVE)
[2018-07-04 16:36] LABS: ALBUMIN 2.6 g/dL (3.4-5.0); ALBUMIN/GLOBULIN RATIO 0.6 (1.0-1.7); CALCIUM 9.3 mg/dL (8.5-10.1); CREATININE 0.8 mg/dL (0.6-1.0); GFR 69.4; POTASSIUM 5.4 mmol/L (3.5-5.1); TOTAL BILIRUBIN 0.3 mg/dL (0.2-1.0); TOTAL PROTEIN 6.8 g/dL (6.4-8.2)
[2018-07-04 16:58] LABS: BILIRUBIN,URINE NEG (NEG); CLARITY,URINE HAZY; COLOR,URINE YELLOW; GLUCOSE,URINE NEG (NEG)
[2018-07-04 16:59] LABS: BACTERIA,URINE FEW /HPF (0-FEW); HYALINE CASTS, URINE MANY /HPF; NITRITE,URINE NEG (NEG); SQUAMOUS EPITHELIAL CELL,UR FEW /LPF; UROBILINOGEN,URINE 0.2 mg/dL (0.2 mg/dL)
[2018-07-04] MEDS ORDERED: VANCOMYCIN 1 GM in IV NORMAL SALINE 250ML 250 ML IV ONE (17:00)
--- NOTE | 2018-07-04 17:18 | PHYS DOC ---
Past History Past Medical History: Arthritis, COPD, CVA, GERD, Hypertension, Stroke, TIA, Other Past Surgical History: Appendectomy, Cholecystectomy, Hysterectomy, Knee Replacement, Oophorectomy, Tonsillectomy Smoking: Non-smoker Alcohol Use: None Drug Use: None Adult General Chief Complaint Chief Complaint: HYPOTENSION HPI HPI Patient is a 77 year old patient of custodial with history of recent hospitalization with right lower extremity cellulitis and then pneumonia brought in by EMS because of low blood pressure and altered level of consciousness and hypoxia reported by custodial. [facility] reported that patient finished a course of oral antibiotic after her discharge from hospital with diagnosis of pneumonia and today had more confusion and blood pressure was 80s over 40s and O2 sat was low. Patient complaining of generalized pain that according to her son is usual for her. Review of Systems Review of Systems Constitutional: Denies fever or chills [] Eyes: Denies change in visual acuity, redness, or eye pain [] HENT: Denies nasal congestion or sore throat [] Respiratory: Denies cough or shortness of breath [] Cardiovascular: No additional information not addressed in HPI [] GI: Denies abdominal pain, nausea, vomiting, bloody stools or diarrhea [] : Denies dysuria or hematuria [] Musculoskeletal: Denies back pain or joint pain, reports myalgia Integument: Denies rash or skin lesions [] Neurologic: Denies headache, focal weakness or sensory changes [] Endocrine: Denies polyuria or polydipsia [] All other systems were reviewed and found to be within normal limits, except as documented in this note. Current Medications Current Medications Current Medications Medications (Trade) Dose Ordered Sig/Haven Start Time Stop Time Status Last Admin Dose Admin Piperacillin Sod/ Tazobactam Sod 3.375 gm/Sodium Chloride 50 ml @ 100 mls/hr 1X ONCE 07/04/18 17:20 07/04/18 17:49 Sodium Chloride 1,000 ml @ 1,000 mls/hr Q1H 07/04/18 16:00 07/04/18 16:59 DC 07/04/18 15:55 1,000 MLS/HR Vancomycin HCl 1.5 gm/Sodium Chloride 500 ml @ 250 mls/hr 1X ONCE 07/04/18 17:30 07/04/18 19:29 Vancomycin HCl 1 gm/Sodium Chloride 250 ml @ 250 mls/hr 1X ONCE 07/04/18 17:00 07/04/18 17:59 UNV Allergies Allergies Allergies Coded Allergies Type Severity Reaction Last Updated Verified codeine Allergy Intermediate 05/07/18 Yes gluten Allergy Intermediate 05/07/18 No Physical Exam Physical Exam Constitutional: Moderate distress, non-toxic appearance, afebrile. [] HENT: Normocephalic, atraumatic, oropharynx dry Eyes: PERRLA, EOMI, conjunctiva normal, no discharge. [] Neck: Normal range of motion, no tenderness, supple, no stridor. [] Cardiovascular:Heart rate regular rhythm, no murmur [] Lungs & Thorax: Decrease of air movement, no respiratory distress Abdomen: Bowel sounds normal, soft, no tenderness, no masses, no pulsatile masses. [] Skin: Warm, dry, no erythema, no rash. [] Back: No tenderness, no CVA tenderness. [] Extremities: Right lower extremity with erythema from ankle to knee and 3+ edema and mild tenderness Neurologic: Alert and oriented X 2, normal motor function, normal sensory function, no focal deficits noted. [] Current Patient Data Lab Results Laboratory Tests Test 07/04/18 15:55 07/04/18 16:00 07/04/18 16:20 White Blood Count 5.6 x10^3/uL (4.0-11.0) Red Blood Count 3.90 x10^6/uL (3.50-5.40) Hemoglobin 10.0 g/dL (12.0-15.5) L Hematocrit 31.9 % (36.0-47.0) L Mean Corpuscular Volume 82 fL (79-100) Mean Corpuscular Hemoglobin 26 pg (25-35) Mean Corpuscular Hemoglobin Concent 31 g/dL (31-37) Red Cell Distribution Width 15.9 % (11.5-14.5) H Platelet Count 436 x10^3/uL (140-400) H Neutrophils (%) (Auto) 66 % (31-73) Lymphocytes (%) (Auto) 18 % (24-48) L Monocytes (%) (Auto) 13 % (0-9) H Eosinophils (%) (Auto) 3 % (0-3) Basophils (%) (Auto) 1 % (0-3) Neutrophils # (Auto) 3.7 x10^3uL (1.8-7.7) Lymphocytes # (Auto) 1.0 x10^3/uL (1.0-4.8) Monocytes # (Auto) 0.7 x10^3/uL (0.0-1.1) Eosinophils # (Auto) 0.1 x10^3/uL (0.0-0.7) Basophils # (Auto) 0.0 x10^3/uL (0.0-0.2) Sodium Level 138 mmol/L (136-145) Potassium Level 5.4 mmol/L (3.5-5.1) H Chloride Level 102 mmol/L (98-107) Carbon Dioxide Level 27 mmol/L (21-32) Anion Gap 9 (6-14) Blood Urea Nitrogen 15 mg/dL (7-20) Creatinine 0.8 mg/dL (0.6-1.0) Estimated GFR (Cockcroft-Gault) 69.4 BUN/Creatinine Ratio 19 (6-20) Glucose Level 92 mg/dL (70-99) Lactic Acid Level 0.8 mmol/L (0.4-2.0) Calcium Level 9.3 mg/dL (8.5-10.1) Total Bilirubin 0.3 mg/dL (0.2-1.0) Aspartate Amino Transferase (AST) 20 U/L (15-37) Alanine Aminotransferase (ALT) 17 U/L (14-59) Alkaline Phosphatase 163 U/L (46-116) H Troponin I Quantitative < 0.017 ng/mL (0-0.055) Total Protein 6.8 g/dL (6.4-8.2) Albumin 2.6 g/dL (3.4-5.0) L Albumin/Globulin Ratio 0.6 (1.0-1.7) L Influenza Type A (Rapid) Negative (NEGATIVE) Influenza Type B (Rapid) Negative (NEGATIVE) Urine Collection Type Unknown Urine Color Yellow Urine Clarity Hazy Urine pH 6.0 Urine Specific [place] 1.015 Urine Protein Neg (NEG-TRACE) Urine Glucose (UA) Neg mg/dL (NEG) Urine Ketones (Stick) Trace mg/dL (NEG) Urine Blood Neg (NEG) Urine Nitrite Neg (NEG) Urine Bilirubin Neg (NEG) Urine Urobilinogen Dipstick 0.2 mg/dL (0.2 mg/dL) Urine Leukocyte Esterase Trace (NEG) Urine RBC 3-5 /HPF (0-2) Urine WBC 5-10 /HPF (0-4) Urine Squamous Epithelial Cells Few /LPF Urine Bacteria Few /HPF (0-FEW) Urine Hyaline Casts Many /HPF Urine Mucus Marked /LPF Radiology/Procedures Radiology/Procedures [address] [address] IMAGING REPORT Signed PATIENT: ABDULLAHI WELLER ACCOUNT: [id number] : 1940 LOCATION: ER AGE: 77 SEX: F EXAM STATUS: REG ER ORD. PHYSICIAN: SHANAE ROSSI MD REASON: hypotension PROCEDURE: PORTABLE CHEST 1V PORTABLE CHEST 1V Clinical Indication: HYPOTENSION Comparison: AP chest, June 16, 2018. Findings: Tortuous thoracic aorta. The cardiomediastinal silhouette is normal. Lungs are clear. There is no pneumothorax. No pleural effusion is appreciated. Demineralization. IMPRESSION: No acute cardiopulmonary process. Electronically signed by: Angel Rodríguez MD (07/04/2018 4:24 PM) [id number] DICTATED AND SIGNED BY: ANGEL RODRÍGUEZ MD DATE: 07/04/18 2933 CC: SHANAE ROSSI MD; ESTEFANI SUAREZ MD ~ Course & Med Decision Making Course & Med Decision Making Pertinent Labs and Imaging studies reviewed. (See chart for details) Evaluation of patient in ER showed 77-year-old male patient brought in from custodial because of hypotension. Patient had blood pressure of 80s at arrival to ER and treated with 1 L of normal saline with increase of blood pressure to 118/61 and heart rate of 69. Patient was afebrile in ER and was alert and oriented 2 that according to her son was her baseline. Patient had right lower extremity erythema and edema with previous history of cellulitis. After obtaining blood cultures and treating patient with IV fluid for sepsis Zosyn and vancomycin was started patient had potassium of 5.4 and albuterol nebulizer treatment was requested. Right lower extremity ultrasound did not show sign of DVT. Dr Girard accepted admission at 1650. Dragon Disclaimer Dragon Disclaimer This electronic medical record was generated, in whole or in part, using a voice recognition dictation system. Departure Departure: Impression: Primary Impression: Sepsis Additional Impressions: Cellulitis of right lower extremity Hypotension Altered level of consciousness Hyperkalemia Anemia UTI (urinary tract infection) Disposition: ADMITTED INPATIENT (at 1656) Admitting Physician: Indu Girard (accepted admission at 1650) Condition: GUARDED Referrals: ESTEFANI SUAREZ MD (PCP) Critical Care Time Critical care time was 80 minutes exclusive of procedures. Problem Qualifiers SHANAE ROSSI MD Jul 04, 2018 17:18
[2018-07-04] MEDS ORDERED: PIPERACILLIN/TAZOBACTAM 3.375 GM in IV NORMAL SALINE 50ML 50 ML IV ONE (17:20)
--- NOTE | 2018-07-04 17:26 | RAD ---
Ultrasound venous Doppler INDICATION:Edema and emphysema of the right lower extremity. TECHNIQUE: Grayscale, color Doppler and spectral waveform ultrasound images of the right lower extremity deep veins obtained. COMPARISON: None FINDINGS: The interrogated deep veins are compressible and demonstrate evidence of blood flow with normal respiratory variation and response to augmentation. Enlarged right groin lymph nodes are seen, the largest measuring 3.5 x 1.1 cm. IMPRESSION: 1. No sonographic evidence of acute DVT of the right lower extremity deep veins. 2. Enlarged right groin lymph node, nonspecific may be reactive. Electronically signed by: Antonio Ferguson DO (07/04/2018 5:21 PM) [facility]
[2018-07-04] MEDS ORDERED: IV NORMAL SALINE 1,000ML 1,000 ML IV ONE ×2 (17:30→19:30)
[2018-07-04] MEDS ORDERED: ALBUTEROL SULFATE 2.5 MG/3 ML NEBU. CONT NEB ONE (17:30)
[2018-07-04] MEDS ORDERED: VANCOMYCIN 1.5 GM in IV NORMAL SALINE 500ML 500 ML IV ONE ×2 (17:30→19:00)
[2018-07-04 19:00] VITALS: BP 114/73
[2018-07-04] MEDS ORDERED: VANCOMYCIN PER PHARMACY MC PRN (19:30)
[2018-07-04] MEDS ORDERED: PIP/TAZO PER PHARMACY MC PRN (19:30)
[2018-07-04] MEDS: VANCOMYCIN PER PHARMACY MC PRN (19:36)
[2018-07-04] MEDS ORDERED: OXYC1TAB22 PO (19:37)
[2018-07-04] MEDS: PIPERACILLIN/TAZOBACTAM 3.375 GM in IV NORMAL SALINE 50ML 50 ML IV SCH (20:12)
[2018-07-04] MEDS: SUCRALFATE 1 GM/10 ML ORAL.SUSP. PO SCH (20:13)
[2018-07-04] MEDS: GABAPENTIN 300 MG CAPSULE. PO SCH (20:16)
[2018-07-04] MEDS: ENOXAPARIN 40 MG/0.4 ML SYRINGE. SQ SCH (20:16)
[2018-07-04] MEDS: DOCUSATE SODIUM 100 MG CAPSULE PO SCH (20:16)
[2018-07-04] MEDS: LACTOBACILLUS RHAMNOSUS GG 1 CAPSULE. PO SCH (20:17)
[2018-07-04] MEDS: oxyCODONE ER 10 MG TAB.ER.12H PO SCH (20:17)
[2018-07-04 20:25] VITALS: BP 121/67
[2018-07-04] MEDS ORDERED: LACTOBACILLUS RHAMNOSUS GG 1 CAPSULE. PO SCH (21:00)
[2018-07-04] MEDS: IPRATRPIUM/ALBUTEROL 0.5/2.5MG 3 ML NEBU. NEB SCH (21:03)
[2018-07-04 23:15] VITALS: BP 117/58
[2018-07-05] MEDS: PIPERACILLIN/TAZOBACTAM 3.375 GM in IV NORMAL SALINE 50ML 50 ML IV SCH ×5 (00:30→23:30)
--- NOTE | 2018-07-05 00:39 | EKG ---
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
[2018-07-05] MEDS: IPRATRPIUM/ALBUTEROL 0.5/2.5MG 3 ML NEBU. NEB SCH ×4 (05:41→20:47)
[2018-07-05 06:20] VITALS: BP 130/78
[2018-07-05 06:29] LABS: BASO # 0.1 x10^3/uL (0.0-0.2); BASO % 1 % (0-3); EOS # 0.1 x10^3/uL (0.0-0.7); EOS % 3 % (0-3); HEMATOCRIT 29.2 % (36.0-47.0); HEMOGLOBIN 9.1 g/dL (12.0-15.5); LYMPH # 1.3 x10^3/uL (1.0-4.8); LYMPH % 26 % (24-48); MEAN CORPUSCULAR HEMOGLOBIN 26 pg (25-35); MEAN CORPUSCULAR HGB CONC 31 g/dL (31-37); MEAN CORPUSCULAR VOLUME 83 fL (79-100); MONO # 0.7 x10^3/uL (0.0-1.1); MONO % 14 % (0-9); NEUT # 2.7 x10^3uL (1.8-7.7); NEUT % 56 % (31-73); PLATELET COUNT 337 x10^3/uL (140-400); RED BLOOD COUNT 3.54 x10^6/uL (3.50-5.40); RED CELL DISTRIBUTION WIDTH 15.8 % (11.5-14.5); WHITE BLOOD COUNT 4.9 x10^3/uL (4.0-11.0)
[2018-07-05 06:39] LABS: ALBUMIN 2.1 g/dL (3.4-5.0); ALBUMIN/GLOBULIN RATIO 0.5 (1.0-1.7); CALCIUM 8.6 mg/dL (8.5-10.1); CREATININE 0.7 mg/dL (0.6-1.0); GFR 80.9; POTASSIUM 4.7 mmol/L (3.5-5.1); TOTAL BILIRUBIN 0.4 mg/dL (0.2-1.0); TOTAL PROTEIN 6.1 g/dL (6.4-8.2)
[2018-07-05] MEDS: oxyCODONE ER 10 MG TAB.ER.12H PO SCH ×2 (08:03→18:49)
[2018-07-05] MEDS: CITALOPRAM 10 MG TABLET. PO SCH (08:04)
[2018-07-05] MEDS: ASPIRIN 81 MG TAB.CHEW PO SCH (08:04)
[2018-07-05] MEDS: oxyCODONE/APAP 10/325 1 TAB TABLET PO PRN ×4 (08:04→22:13)
[2018-07-05] MEDS: POTASSIUM CHLORIDE 10 MEQ TABLET.ER. PO SCH (08:05)
[2018-07-05] MEDS: CHOLECALCIFEROL (VITAMIN D3) 1,000 UNIT TABLET PO SCH (08:05)
[2018-07-05] MEDS: GABAPENTIN 300 MG CAPSULE. PO SCH ×4 (08:05→19:40)
[2018-07-05] MEDS: SUCRALFATE 1 GM/10 ML ORAL.SUSP. PO SCH ×2 (08:05→19:40)
[2018-07-05] MEDS: DOCUSATE SODIUM 100 MG CAPSULE PO SCH ×2 (08:05→19:40)
[2018-07-05] MEDS: LACTOBACILLUS RHAMNOSUS GG 1 CAPSULE. PO SCH ×2 (08:08→19:40)
[2018-07-05 10:53] VITALS: BP 109/64
[2018-07-05 15:11] VITALS: BP 104/64
--- NOTE | 2018-07-05 16:48 | HP ---
ADMIT DATE: 07/04/2018 HISTORY OF PRESENT ILLNESS: The patient is a 77-year-old female patient, a resident at [facility], who was brought to the Emergency Room because was noted to be hypotensive. Her blood pressure was only 80 systolic. She was also noted to be hypoxic and further investigation showed that she has hyperkalemia and right lower extremity cellulitis and was admitted after rehydrating her with IV fluid and was continued on IV vancomycin as well as piperacillin, tazobactam. The patient was confused, hypotensive. She has just finished a course of antibiotic after discharge, treating her pneumonia and right lower extremity cellulitis. In fact, she also continued to have severe generalized pain, more so on the right side. PAST MEDICAL HISTORY: Significant for left middle cerebral artery territory infarct with right-sided hemiplegia, occasional aphasia, hypertension, degenerative joint disease, depression, generalized osteoarthritis. She does have a history of dysphagia, status post PEG tube placement, hyperlipidemia, chronic obstructive pulmonary disease and recently treated for shingles. PAST SURGICAL HISTORY: Significant for appendectomy, cholecystectomy, tonsillectomy, total abdominal hysterectomy, bilateral salpingo-oophorectomy, history of percutaneous endoscopic gastrostomy tube placement and right total knee arthroplasty. ALLERGIES: She is allergic to CODEINE AND GLUTEN. She is also known to have celiac disease. FAMILY HISTORY: Noncontributory. SOCIAL HISTORY: She is and lives with her . She never smoked. She does not drink alcohol. She is retired after working at [employer] as well as [employer]. She has 2 sons and 2 daughters. MEDICATIONS: She is currently on following medications: She is on ipratropium bromide, albuterol sulfate for DuoNeb in 3 mL 4 times a day, amlodipine besylate 5 mg once a day, lisinopril 40 mg once a day, aspirin 81 mg once a day, oxycodone for OxyContin 10 mg twice a day, oxycodone/APAP 10/325 one tablet every 4 hours, gabapentin 300 mg 4 times a day, citalopram hydrobromide 10 mg daily, potassium chloride 10 mEq every other day, lactobacillus acidophilus 100 mg twice a day, Colace 100 mg twice a day, magnesium citrate 1 bottle once every 3 days, sucralfate 1 gram in 10 mL twice a day, cholecalciferol for vitamin D3 1000 International unit once a day. PHYSICAL EXAMINATION: GENERAL: On arrival to the Emergency Room, she apparently was somewhat confused with pale, but no jaundice, cyanosis, or thyromegaly. No jugular venous distension. Mild right lower extremity swelling compared to the left side with erythema. VITAL SIGNS: Her heart rate was 71, blood pressure was 86/51, temperature was 97.7, respiratory rate was 16, and oxygen saturation was 93%. HEAD, EYES, EAR, NOSE, AND THROAT: Showed normocephalic and atraumatic. NECK: Supple. HEART: Showed normal first and second heart sounds with no gallop, rub or murmur. CHEST: Clear to auscultation. No crepitation or rhonchi. ABDOMEN: Distended, soft, nontender. No guarding or rigidity. No organomegaly. All hernial orifice intact. Bowel sounds normal. NEUROLOGIC: She is somewhat confused, but all her cranial nerves intact. She has right-sided hemiplegia. Her right lower extremity is more swollen and erythematous. However, the erythema is much less than the last admission involving only the foot and the distal half of the right leg compared to almost total involvement of the right lower extremity on her last admission. LABORATORY DATA: On admission showed a white cell count 5600, hemoglobin 10, hematocrit 32, MCV 82, and platelet count of 436,000. Her chemistry showed a serum sodium 138, potassium 5.4, chloride 102, bicarbonate 27, anion gap of 9, BUN 15, creatinine 0.8, estimated GFR was 69 mL per minute. Her glucose was 92, calcium was 9.3. Total bilirubin, AST, ALT were normal. Alkaline phosphatase slightly elevated. Her total protein was 6.8, albumin was 2.6. Her prothrombin time was 9.8, INR of 1. Urinalysis showed the urine was yellow, hazy with a pH of 6, specific gravity of 1.015. The urine was negative for protein, glucose. There was a trace of ketones, negative for blood, nitrite. There was trace of leukocyte esterase, 3-5 rbc's, 5-10 wbc's and very few bacteria. She did have a chest x-ray, which showed the tortuous thoracic aorta. The cardiomediastinal silhouette is normal. Lungs are clear. There is no pneumothorax, no pleural effusion is appreciated. The bony thorax showed demineralization. She has a venous Doppler ultrasound of the right lower extremity showed no sonographic evidence of acute DVT on the right lower extremity, deep veins and enlarged right groin lymph nodes, nonspecific, may be reactive. ASSESSMENT AND PLAN: The patient was admitted, was continued on all her other medications and was started on IV vancomycin as well as Zosyn. We will follow her closely. She has received a liter of normal saline. By the time, she arrived to the floor, her blood pressure has much improved. OWEN MAGANA MD DR: CALLI/esequiel JOB#: [id number] / [id number]
[2018-07-05 17:39] VITALS: BP 135/75
[2018-07-05] MEDS: VANCOMYCIN 1 GM in IV NORMAL SALINE 250ML 250 ML IV SCH (17:59)
[2018-07-05 19:14] VITALS: BP 113/70
[2018-07-05] MEDS: ENOXAPARIN 40 MG/0.4 ML SYRINGE. SQ SCH (19:40)
--- NOTE | 2018-07-05 20:16 | PN ---
DATE: 07/05/2018 SUBJECTIVE: The patient is resting, slightly propped up, sleeping comfortably, no apparent distress. On questioning her, she denied any complaints; however, the nursing staff stated that she is actually more awake this afternoon than in the morning. She refused her breakfast and lunch and stated that she has anorexia and has no appetite. She continued to complain of pain in the right side of her body, mostly in the right lower extremity and there is still erythema and swelling, although much less than the previous admission. She has no deep vein thrombosis in the right lower extremity. OBJECTIVE: GENERAL: When I examined her this afternoon, she looked well and was clearly in no apparent respiratory distress, pale, but no jaundice, cyanosis, lymphadenopathy or thyromegaly. No jugular venous distention. No limb edema. VITAL SIGNS: Her heart rate was 61, blood pressure 104/64, temperature was 97.9, respiratory rate was 18 and oxygen saturation was 94%. HEAD, EYES, EARS, NOSE AND THROAT: Showed normocephalic, atraumatic. NECK: Supple. HEART: Showed normal first and second heart sounds with no gallop, rub or murmur. CHEST: Clear to auscultation. No crepitation or rhonchi. ABDOMEN: Distended, soft, nontender. NEUROLOGIC: She was sleepy, but arousable. All cranial nerves intact. She has right-sided hemiplegia. EXTREMITIES: Her right lower extremity is swollen and erythematous with erythema involving the foot and distal half of the right leg. LABORATORY DATA: Her lab work today showed her white cell count was 4900, hemoglobin 9, hematocrit 29, MCV 83, and platelet count of 337,000 with normal manual differential. Her showed a serum sodium of 142, potassium 4.7, chloride 108, bicarbonate 25, anion gap of 9, BUN 10, creatinine 0.7, estimated GFR was 80 mL per minute. Her glucose was 80, calcium was 8.6. Her lactic acid was only 0.8. Her total bilirubin, AST, ALT were normal. Alkaline phosphatase slightly elevated. Total protein 6.1, albumin was 2.1. Her urine culture is still pending at the time of this dictation. ASSESSMENT: This is a 77-year-old female patient who was transferred from [facility] where she was noted to be hypotensive, hypoxic with altered mental status, she was found to have right lower extremity cellulitis and ____ she has urinary tract infection. PLAN: We will continue with IV antibiotic. Continue with all other medication. Follow her closely and once she stabilized, we will probably switch her to oral antibiotic and discharge her back to [facility]. OWEN MAGANA MD DR: CALLI/esequiel JOB#: [id number] / [id number]
[2018-07-06] MEDS: oxyCODONE/APAP 10/325 1 TAB TABLET PO PRN ×3 (03:58→18:17)
[2018-07-06] MEDS ORDERED: ASPI325T8 PO (04:16)
[2018-07-06] MEDS: IPRATRPIUM/ALBUTEROL 0.5/2.5MG 3 ML NEBU. NEB SCH ×4 (05:32→20:40)
[2018-07-06] MEDS: PIPERACILLIN/TAZOBACTAM 3.375 GM in IV NORMAL SALINE 50ML 50 ML IV SCH ×3 (05:34→18:18)
[2018-07-06 06:05] VITALS: BP_SYST 106; BP_SYST 128; BP_DIAS 63; BP_DIAS 74
[2018-07-06 06:36] LABS: CALCIUM 8.7 mg/dL (8.5-10.1); CREATININE 0.7 mg/dL (0.6-1.0); GFR 80.9; POTASSIUM 4.2 mmol/L (3.5-5.1)
[2018-07-06] MEDS: SUCRALFATE 1 GM/10 ML ORAL.SUSP. PO SCH ×3 (08:26→21:19)
[2018-07-06] MEDS: ASPIRIN 81 MG TAB.CHEW PO SCH (08:26)
[2018-07-06] MEDS: LACTOBACILLUS RHAMNOSUS GG 1 CAPSULE. PO SCH ×2 (08:27→21:18)
[2018-07-06] MEDS: oxyCODONE ER 10 MG TAB.ER.12H PO SCH ×2 (08:27→21:22)
[2018-07-06] MEDS: GABAPENTIN 300 MG CAPSULE. PO SCH ×4 (08:28→21:18)
[2018-07-06] MEDS: DOCUSATE SODIUM 100 MG CAPSULE PO SCH ×2 (08:28→21:18)
[2018-07-06] MEDS: CITALOPRAM 10 MG TABLET. PO SCH (08:28)
[2018-07-06] MEDS: CHOLECALCIFEROL (VITAMIN D3) 1,000 UNIT TABLET PO SCH (08:28)
[2018-07-06 10:51] VITALS: BP 111/67
[2018-07-06 15:01] VITALS: BP 107/68
[2018-07-06 17:43] LABS: VANC TR 10.6 mcg/mL (10.0-20.0)
[2018-07-06] MEDS: VANCOMYCIN 1 GM in IV NORMAL SALINE 250ML 250 ML IV SCH (18:19)
[2018-07-06 20:26] VITALS: BP 115/67
--- NOTE | 2018-07-06 20:28 | PN ---
DATE: 07/06/2018 SUBJECTIVE: The patient is sitting comfortably in her chair, in no apparent distress. She is definitely more awake, alert. She has eaten her lunch to lesser extent her breakfast according to nursing staff. Her erythema seems to be less as well as the swelling of her right lower extremity. PHYSICAL EXAMINATION: When I examined her this afternoon, she looked well and was clearly in no apparent respiratory distress, slightly pale, but no jaundice, cyanosis, or thyromegaly. No jugular venous distension. Her right lower extremity seems to be more swollen than the left with erythema involving the distal half of the right leg and dorsum of the foot. VITAL SIGNS: Her heart rate was 67, blood pressure was 111/67, temperature was 98.2, respiratory rate was 14 and oxygen saturation was 91% on room air. HEAD, EYES, EARS, NOSE AND THROAT: Showed normocephalic, atraumatic. NECK: Supple. HEART: Showed normal first and second sounds. No gallop, rub or murmur. CHEST: Clear to auscultation. No crepitation or rhonchi. ABDOMEN: Distended, soft, nontender. NEUROLOGIC: She is definitely more awake, alert, responding appropriately. All cranial nerves intact. She has right-sided hemiplegia. Her intake over the last 24 hours was 1150 and no output was recorded. LABORATORY DATA: As of this morning, her serum sodium was 139, potassium 4.2, chloride 106, bicarbonate 23, anion gap of 10, BUN 10, creatinine 0.7, estimated GFR was 81 mL per minute. Her glucose was 75 and calcium was 8.7. ASSESSMENT: 1. Altered mental status, resolved. The patient is definitely more awake, alert. 2. Hypertension, improved. 3. Acute hypoxic respiratory failure, resolved. 4. Right lower extremity cellulitis for which she is now on vancomycin and Zosyn. 5. So far, her blood cultures are negative. Urine showed growth of more than 100,000 colony forming units per mL of Escherichia coli. The result of the sensitivity still pending at the time of this dictation. PLAN: I will probably continue with both antibiotics for now, awaiting the result of the culture and sensitivity. OWEN MAGANA MD DR: CALLI/esequiel JOB#: [id number] / [id number]
[2018-07-06] MEDS: ENOXAPARIN 40 MG/0.4 ML SYRINGE. SQ SCH (21:19)
[2018-07-06 23:31] VITALS: BP 132/72
[2018-07-07] MEDS: PIPERACILLIN/TAZOBACTAM 3.375 GM in IV NORMAL SALINE 50ML 50 ML IV SCH ×4 (00:27→17:14)
[2018-07-07] MEDS: oxyCODONE/APAP 10/325 1 TAB TABLET PO PRN ×5 (01:35→18:44)
[2018-07-07 05:42] VITALS: BP 143/77
[2018-07-07] MEDS: IPRATRPIUM/ALBUTEROL 0.5/2.5MG 3 ML NEBU. NEB SCH ×4 (06:16→20:36)
[2018-07-07 07:28] LABS: BASO # 0.1 x10^3/uL (0.0-0.2); BASO % 2 % (0-3); EOS # 0.2 x10^3/uL (0.0-0.7); EOS % 6 % (0-3); HEMATOCRIT 29.3 % (36.0-47.0); HEMOGLOBIN 9.3 g/dL (12.0-15.5); LYMPH # 0.8 x10^3/uL (1.0-4.8); LYMPH % 20 % (24-48); MEAN CORPUSCULAR HEMOGLOBIN 26 pg (25-35); MEAN CORPUSCULAR HGB CONC 32 g/dL (31-37); MEAN CORPUSCULAR VOLUME 81 fL (79-100); MONO # 0.4 x10^3/uL (0.0-1.1); MONO % 10 % (0-9); NEUT # 2.6 x10^3uL (1.8-7.7); NEUT % 62 % (31-73); PLATELET COUNT 369 x10^3/uL (140-400); RED BLOOD COUNT 3.64 x10^6/uL (3.50-5.40); RED CELL DISTRIBUTION WIDTH 15.9 % (11.5-14.5); WHITE BLOOD COUNT 4.1 x10^3/uL (4.0-11.0)
[2018-07-07 07:34] LABS: CALCIUM 8.5 mg/dL (8.5-10.1); CREATININE 0.7 mg/dL (0.6-1.0); GFR 80.9; POTASSIUM 3.8 mmol/L (3.5-5.1)
[2018-07-07] MEDS: CHOLECALCIFEROL (VITAMIN D3) 1,000 UNIT TABLET PO SCH (08:37)
[2018-07-07] MEDS: GABAPENTIN 300 MG CAPSULE. PO SCH ×4 (08:37→21:34)
[2018-07-07] MEDS: DOCUSATE SODIUM 100 MG CAPSULE PO SCH ×2 (08:38→21:34)
[2018-07-07] MEDS: oxyCODONE ER 10 MG TAB.ER.12H PO SCH ×2 (08:38→21:35)
[2018-07-07] MEDS: CITALOPRAM 10 MG TABLET. PO SCH (08:38)
[2018-07-07] MEDS: LACTOBACILLUS RHAMNOSUS GG 1 CAPSULE. PO SCH ×2 (08:38→21:34)
[2018-07-07] MEDS: POTASSIUM CHLORIDE 10 MEQ TABLET.ER. PO SCH (08:38)
[2018-07-07] MEDS: SUCRALFATE 1 GM/10 ML ORAL.SUSP. PO SCH ×3 (08:39→21:00)
[2018-07-07] MEDS: ASPIRIN 81 MG TAB.CHEW PO SCH (08:39)
[2018-07-07] MEDS: VANCOMYCIN PER PHARMACY MC PRN (11:17)
[2018-07-07 11:57] VITALS: BP 123/78
--- NOTE | 2018-07-07 12:56 | PN ---
DATE: 07/07/2018 SUBJECTIVE: The patient is resting, slightly propped up in bed, no apparent distress. Awake, alert, continued to complain of pain in the right side, but otherwise she generally doing well. Her erythema and swelling of the right lower extremity is subsiding and the nursing staff did not voice any concern. PHYSICAL EXAMINATION: GENERAL: When I examined her, she was pale, no jaundice, cyanosis, or thyromegaly. No jugular venous distension. No limb edema. VITAL SIGNS: Her heart rate was 65, blood pressure was 143/77, temperature was 97.4, respiratory rate was 18 and oxygen saturation was 96% on room air. HEAD, EYES, EARS, NOSE AND THROAT: Showed she is normocephalic, atraumatic. The rest of clinical exam is stable. The right lower extremity swelling and erythema is subsiding. Her intake was 1150, no output was recorded. LABORATORY DATA: Her white cell count this morning was 4100, hemoglobin 9.3, hematocrit 29, MCV 81, and platelet count of 369,000. Her chemistry showed a serum sodium 142, potassium 3.8, chloride 107, bicarbonate 23, anion gap of 12, BUN 8, creatinine 0.7, estimated GFR was 80 mL per minute. Her glucose was 77, calcium was 8.5. Her nasal screen for MRSA by PCR was negative. Her blood cultures are so far negative; however, her urine culture has grown more than 100,000 colony forming units of Escherichia coli. The sensitivity is still pending at the time of this dictation. ASSESSMENT: 1. Right lower extremity cellulitis, improving. 2. Hypertension has resolved. 3. Acute hypoxic respiratory failure, resolved. 4. Altered mental status, resolved. The patient is definitely more awake, alert. Her urine culture has grown more than 100,000 colony forming units of Escherichia coli; however, the sensitivity is still pending at the time of this dictation. PLAN: My plan is to continue with both IV antibiotics for now, continue with pain management, nutrition support and once we have the sensitivity the patient can be discharged back to [facility] to continue oral medication. OWEN MAGANA MD DR: CALLI/esequiel JOB#: [id number] / [id number]
[2018-07-07 16:51] VITALS: BP 109/61
[2018-07-07] MEDS: VANCOMYCIN 1 GM in IV NORMAL SALINE 250ML 250 ML IV SCH (17:14)
[2018-07-07] MEDS: ENOXAPARIN 40 MG/0.4 ML SYRINGE. SQ SCH (21:34)
[2018-07-07 22:27] VITALS: BP 118/66
[2018-07-08] MEDS: PIPERACILLIN/TAZOBACTAM 3.375 GM in IV NORMAL SALINE 50ML 50 ML IV SCH ×2 (00:27→05:42)
[2018-07-08] MEDS: oxyCODONE/APAP 10/325 1 TAB TABLET PO PRN ×5 (01:09→23:07)
[2018-07-08] MEDS: IPRATRPIUM/ALBUTEROL 0.5/2.5MG 3 ML NEBU. NEB SCH ×4 (05:23→20:53)
[2018-07-08 06:41] VITALS: BP 147/80
[2018-07-08] MEDS: SUCRALFATE 1 GM/10 ML ORAL.SUSP. PO SCH ×2 (09:00→20:51)
[2018-07-08] MEDS: CHOLECALCIFEROL (VITAMIN D3) 1,000 UNIT TABLET PO SCH (09:10)
[2018-07-08] MEDS: LACTOBACILLUS RHAMNOSUS GG 1 CAPSULE. PO SCH ×2 (09:10→20:51)
[2018-07-08] MEDS: GABAPENTIN 300 MG CAPSULE. PO SCH ×4 (09:10→20:52)
[2018-07-08] MEDS: DOCUSATE SODIUM 100 MG CAPSULE PO SCH ×2 (09:10→20:53)
[2018-07-08] MEDS: ASPIRIN 81 MG TAB.CHEW PO SCH (09:10)
[2018-07-08] MEDS: CITALOPRAM 10 MG TABLET. PO SCH (09:10)
[2018-07-08] MEDS: oxyCODONE ER 10 MG TAB.ER.12H PO SCH ×2 (09:10→20:53)
[2018-07-08 10:47] VITALS: BP 133/75
[2018-07-08 11:44] LABS: CALCIUM 8.9 mg/dL (8.5-10.1); CREATININE 0.8 mg/dL (0.6-1.0); GFR 69.4; POTASSIUM 3.9 mmol/L (3.5-5.1)
--- NOTE | 2018-07-08 12:43 | PN ---
DATE: 07/08/2018 SUBJECTIVE: The patient is resting slightly propped up in bed, in no apparent respiratory distress. She is awake, alert. On questioning her, she denied any complaint. The nursing staff did not voice any concerns, states she has an uneventful night. PHYSICAL EXAMINATION: GENERAL: When I examined her, she was pale, no jaundice, no cyanosis, no thyromegaly. No jugular venous distension. No limb edema. VITAL SIGNS: Her heart rate was 72, blood pressure was 133/75, temperature was 97.3, respiratory rate was 20, and oxygen saturation was 95% on room air. HEAD, EYES, EARS, NOSE AND THROAT: Showed normocephalic, atraumatic. NECK: Supple. HEART: Showed normal first and second heart sounds. No gallop, rub or murmur. CHEST: Clear to auscultation. No crepitation or rhonchi. ABDOMEN: Distended, soft, nontender. NEUROLOGIC: She is awake, alert, responding appropriately. Her cranial nerves are intact. She moves extremities without difficulty. The erythema and swelling of her right leg is subsiding, although not completely yet. Her intake over the last 24 hours was 1650, no output was recorded. LABORATORY DATA: As of yesterday, her BUN was 8, creatinine 0.7, her hemoglobin was 9.3, hematocrit 29 with normal white cell count and platelets. ASSESSMENT: 1. Right lower extremity cellulitis, improving. 2. Hypotension, has resolved. 3. Acute hypoxic respiratory failure, resolved. 4. Altered mental status, resolved. 5. 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 Her urine culture has grown more than 100,000 colony forming units per mL of Escherichia coli sensitive to all antibiotics. PLAN: My plan is to discontinue her vancomycin and Zosyn. I will switch her to Bactrim and we will discharge her home tomorrow. OWEN MAGANA MD DR: CALLI/esequiel JOB#: [id number] / [id number]
[2018-07-08 15:43] VITALS: BP 126/78
[2018-07-08 19:37] VITALS: BP 138/67
[2018-07-08] MEDS: ENOXAPARIN 40 MG/0.4 ML SYRINGE. SQ SCH (19:37)
[2018-07-08] MEDS: SMZ/TMP 800/160MG TABLET. PO SCH (20:52)
[2018-07-08 23:14] VITALS: BP 120/68
[2018-07-09] MEDS: oxyCODONE/APAP 10/325 1 TAB TABLET PO PRN ×2 (04:10→11:25)
[2018-07-09 05:37] VITALS: BP 130/79
[2018-07-09] MEDS: IPRATRPIUM/ALBUTEROL 0.5/2.5MG 3 ML NEBU. NEB SCH ×2 (05:42→10:19)
[2018-07-09] MEDS: DOCUSATE SODIUM 100 MG CAPSULE PO SCH (08:32)
[2018-07-09] MEDS: SMZ/TMP 800/160MG TABLET. PO SCH (08:33)
[2018-07-09] MEDS: LACTOBACILLUS RHAMNOSUS GG 1 CAPSULE. PO SCH (08:33)
[2018-07-09] MEDS: GABAPENTIN 300 MG CAPSULE. PO SCH (08:33)
[2018-07-09] MEDS: SUCRALFATE 1 GM/10 ML ORAL.SUSP. PO SCH (08:33)
[2018-07-09] MEDS: CITALOPRAM 10 MG TABLET. PO SCH (08:33)
[2018-07-09] MEDS: CHOLECALCIFEROL (VITAMIN D3) 1,000 UNIT TABLET PO SCH (08:33)
[2018-07-09] MEDS: ASPIRIN 81 MG TAB.CHEW PO SCH (08:33)
[2018-07-09] MEDS: POTASSIUM CHLORIDE 10 MEQ TABLET.ER. PO SCH (08:33)
[2018-07-09] MEDS: oxyCODONE ER 10 MG TAB.ER.12H PO SCH (08:33)
--- NOTE | 2018-07-09 09:49 | DISCH ---
DISCHARGE ORDERS CONDITION AT DISCHARGE: Stable Code Status: DNR/DNI SNF STAY <30 DAYS: Yes POST DISCHARGE ORDERS: ACTIVITY ORDERS: Resume previous activity, Activity as tolerated DIET AFTER DISCHARGE: Regular CHECKS AFTER DISCHARGE: CHECKS AFTER DISCHARGE: Check blood press - daily TREATMENT/EQUIPMENT ORDERS: ADAPTIVE EQUIPMENT NEEDED: Commode, Walker DISCHARGE MEDICATIONS: Home Meds Active Scripts Magnesium Citrate (MAGNESIUM CITRATE) 296 Ml Solution, 296 ML PO ONCE, #296 ML Prov:SHANAE ROSSI MD 05/07/18 Reported Medications Oxycodone Hcl/Acetaminophen (PERCOCET 10-325 MG TABLET ) 1 Each Tablet, 1 TAB PO PRN Q4HRS PRN for PAIN 07/04/18 Oxycodone Hcl (OXYCONTIN) 10 Mg Tab.er.12h, 10 MG PO BID for PAIN, TAB 06/22/18 Docusate Sodium (COLACE) 100 Mg Capsule, 1 CAP PO BID for constipation, #30 CAP 06/22/18 Lactobacillus Acidophilus (Acidophilus) 100 Mg Capsule, 100 MG PO BID for supplement, CAP 06/22/18 Ipratropium/Albuterol Sulfate (DUONEB 0.5-3(2.5) MG/3 ML) 3 Ml Ampul.neb, 3 ML NEB QID for COPD, EACH 06/22/18 Sucralfate (SUCRALFATE) 1 Gm/10 Ml Oral.susp, 10 MG PO BID for gerd, #600 ML 1 Refill 06/17/18 Citalopram Hydrobromide (CELEXA) 10 Mg Tablet, 10 MG PO DAILY for depression, TAB 06/17/18 Gabapentin (Gabapentin) 300 Mg Capsule, 300 MG PO QID for tremors, CAP 06/17/18 Cholecalciferol (Vitamin D3) (VITAMIN D3) 1,000 Unit Tablet, 1000 UNIT PO DAILY , TAB 05/07/18 Aspirin (ASPIR-LOW) 81 Mg Tablet.dr, 81 MG PO DAILY, TAB 05/07/18 Lisinopril (LISINOPRIL) 40 Mg Tablet, 40 MG PO DAILY for HYPERTENSION LAST DOSE GIVEN: DATE: 01/12 TIME: 0900 NEXT DOSE DUE: DATE:01/13 TIME: 0900 03/08/17 Potassium Chloride (POTASSIUM CHLORIDE) 10 Meq Tablet.er, 10 MEQ PO QODAY for POTASSIUM SUPPLEMENT 03/08/17 Amlodipine Besylate (AMLODIPINE BESYLATE) 5 Mg Tablet, 5 MG PO DAILY for Hypertension LAST DOSE GIVEN: HELD this AM NEXT DOSE DUE: DATE: 01/13 TIME: 0900 Check Blood Pressure before administration 04/07/14 Discontinued Reported Medications Aspirin (ASPIRIN) 325 Mg Tablet, 1 TAB PO DAILY for blood, #30 TAB 5 Refills 07/06/18 OWEN MAGANA MD Jul 09, 2018 09:49
[2018-07-09 11:25] VITALS: BP 129/75
--- NOTE | 2018-07-09 11:52 | DS ---
DATE OF DISCHARGE: 07/09/2018 HOSPITAL COURSE: The patient is a 77-year-old female patient, who was admitted from [facility] with altered mental status, hypotension and hypoxia. Initial investigation showed that she has right lower extremity cellulitis as well as urinary tract infection. We did start her on IV fluid, IV antibiotic in the form of Zosyn and vancomycin after sending urine and blood for culture and sensitivity. The erythema and swelling of her right leg has largely subsided. She did have a venous Doppler ultrasound that was again demonstrated no evidence of any deep vein thrombosis in his right lower extremity. Her urine culture has grown more than 100,000 colony-forming units per mL of Gram-negative rods identified as Escherichia coli; however, the blood cultures are negative after more than 3 days. Her Escherichia coli are sensitive to almost all antibiotics and therefore the patient was switched to Bactrim DS 1 tablet twice a day for 7 days to treat both the cellulitis as well as the urinary tract infection. PHYSICAL EXAMINATION: GENERAL: When I saw her today, the patient looked well and was clearly in no apparent distress. She was definitely more awake, alert, responding appropriately. Her cranial nerves are intact. VITAL SIGNS: Her heart rate was 63, blood pressure was 130/79, temperature was 97.6, respiratory rate was 18, and oxygen saturation was 98% on room air. HEENT: Examination of the head, eyes, ears, nose and throat showed normocephalic, atraumatic. NECK: Supple. HEART: Showed normal first and second heart sounds. No gallop, rub or murmur. CHEST: Clear to auscultation. No crepitation or rhonchi. ABDOMEN: Distended, soft, nontender. NEUROLOGICAL: She is awake, alert, responding appropriately. Her cranial nerves are intact. She does have occasional episodes of dysphagia and aphasia, difficulty finding words. Otherwise, all her cranial nerves are intact. She has right-sided hemiplegia. The redness and swelling of her right lower extremity has largely subsided. LABORATORY DATA: Her lab work this morning, her most recent lab work showed the serum sodium 142, potassium 3.9, chloride 106, bicarbonate 24, anion gap of 12, BUN 10, creatinine 0.8, estimated GFR was 69 mL per minute. Her glucose 85, calcium was 8.9. White cell count was 4000, hemoglobin 9, hematocrit 29, MCV 81 and platelet count 369,000. Her prothrombin time was 9.8, INR of 1. Her urine culture has grown more than 100,000 colony-forming units per mL of Escherichia coli sensitive to all antibiotics. DISCHARGE MEDICATIONS: The patient will be discharged back to [facility] to continue Bactrim DS 1 tablet twice a day for 7 days, amlodipine 5 mg once a day, aspirin 81 mg once a day, cholecalciferol for vitamin D3 1000 International unit once a day, citalopram hydrobromide for Celexa 10 mg once a day, Colace 100 mg twice a day, gabapentin 300 mg 4 times a day, ipratropium bromide, albuterol sulfate for DuoNeb 4 times a day, lactobacillus acidophilus 1 capsule twice a day, lisinopril 40 mg once a day, magnesium citrate 1 bottle once a day every 3 days, OxyContin 10 mg twice a day, oxycodone 10/325 one tablet every 4 hours as needed. She is on potassium chloride 10 mEq every other day and Sucralfate 1 gram in 10 mL twice a day. FINAL DISCHARGE DIAGNOSES: 1. Altered mental status, multifactorial, resolved. 2. Right lower extremity cellulitis, resolved. 3. Urinary tract infection with growth of more than 1000 colony-forming units per mL of Gram-negative rods identified as Escherichia coli. 4. Hypertension, resolved. 5. Hypoxia, acute hypoxic respiratory failure, resolved. OWEN MAGANA MD DR: CALLI/esequiel JOB#: [id number] / [id number]
== END 2018-07-09 11:51 | DRG 871 ==
LOC: ER 15:44 → 1 SOUTH 16:55
PROVIDERS: ADMIT Internal Medicine; ATTEND Internal Medicine
DX: A41.9 Sepsis, unspecified organism (principal); J18.9 Pneumonia, unspecified organism; J96.01 Acute respiratory failure with hypoxia; I69.351 Hemiplegia and hemiparesis following cerebral infarction affecting right dominant side; J44.0 Chronic obstructive pulmonary disease with (acute) lower respiratory infection; L03.115 Cellulitis of right lower limb; N39.0 Urinary tract infection, site not specified; F32.9 Major depressive disorder, single episode, unspecified; B96.20 Unspecified Escherichia coli [E. coli] as the cause of diseases classified elsewhere; E78.5 Hyperlipidemia, unspecified; I10 Essential (primary) hypertension; Z96.651 Presence of right artificial knee joint; K21.9 Gastro-esophageal reflux disease without esophagitis; M15.9 Polyosteoarthritis, unspecified; E87.5 Hyperkalemia; D64.9 Anemia, unspecified; Z90.710 Acquired absence of both cervix and uterus; Z93.1 Gastrostomy status; Z90.49 Acquired absence of other specified parts of digestive tract; Z79.899 Other long term (current) drug therapy; Z90.722 Acquired absence of ovaries, bilateral
CPT/HCPCS: 36415; 71045; 80048; 80053; 80202; 81001; 83605; 84484; 85025; 85610; 87040; 87086; 87186; 87641; 87804; 93005; 93971; 94640; 96361; 96365; 99292; J1650; J2543; J3370; J7040; J7050; J7613; J7620; 97530; 99291-25; J7030

== ENCOUNTER → 2018-08-25 | Outpatient (CLI) | payer MEDICARE ==
[~2018-08-25] MED LIST changes: +ASPI325T8 PO; +OXYC1TAB22 PO
[2018-08-25 11:42] LABS: CALCIUM 8.7 mg/dL (8.5-10.1); CREATININE 0.7 mg/dL (0.6-1.0); GFR 80.9; POTASSIUM 5.3 mmol/L (3.5-5.1)
== END | disposition home or self-care (01) ==
LOC: LAB 09:59
PROVIDERS: ATTEND Family Medicine
DX: E87.5 Hyperkalemia (principal)
CPT/HCPCS: 36415; 80048